=== PATIENT | female | born 1930 | race Caucasian/White ===

== ENCOUNTER → 2016-06-21 | Outpatient (CLI) | payer OTHER ==
[~2016-06-21] MED LIST: AZIT250T5 PO; CYAN10005 PO; ERGO500037 PO; FISH OI1 PO; FURO-85 PO; INSDGIPEN SC; LEVO-366 PO; LEVO125T4 PO; LSN/10125 PO; MAGN400T6 PO; METO25TA3 PO; NVLG SQ; NVLGI SC; ONDA4TAB10 SL; POTA10CA28 PO; POTA10TA32 PO; SERT50TA PO; SLWMEC PO; TRMCR130WC TOP; VNTHFA/IN INH
[2016-06-21 17:46] LABS: BLOOD UREA NITROGEN 34 mg/dl (7-18); BUN/CREATININE RATIO 24.3 (10-20); CALCIUM 9.4 mg/dl (8.5-10.1); CARBON DIOXIDE 24 mmol/L (21-32); CHLORIDE 104 mmol/L (98-107); GLUCOSE 145 mg/dl (70-99); POTASSIUM 4.2 mmol/L (3.5-5.1); SODIUM 140 mmol/L (136-145)
== END | disposition home or self-care (01) ==
LOC: C.LABPVFM 10:45
PROVIDERS: ATTEND Internal Medicine Nephrology
DX: E55.9 Vitamin D deficiency, unspecified (principal); N18.4 Chronic kidney disease, stage 4 (severe)

== ENCOUNTER 2016-07-24 19:07 | Emergency (ER) | payer OTHER ==
[~2016-07-24] VITALS: Ht 157.5 cm; Wt 105.3 kg
[~2016-07-24 19:07] MED LIST changes: -AZIT250T5 PO; -ERGO500037 PO; -FURO-85 PO; -LEVO-366 PO; -MAGN400T6 PO; -NVLG SQ; -ONDA4TAB10 SL; -POTA10CA28 PO; -SERT50TA PO; -SLWMEC PO; -TRMCR130WC TOP; -VNTHFA/IN INH
[2016-07-24 19:15] VITALS: TEMP 37.3; Ht 157.5 cm; Wt 105.3 kg
[2016-07-24] MEDS ORDERED: MAGN400T6 PO (19:40)
[2016-07-24] MEDS ORDERED: ALBUT/IPRATROP 3MG/0.5MG NEB 3 ML VIAL INH ONE (21:15)
[2016-07-24] MEDS ORDERED: NVLG SQ (21:17)
[2016-07-24] MEDS ORDERED: ERGO500037 PO (21:17)
[2016-07-24] MEDS ORDERED: SERT50TA PO (21:17)
[2016-07-24] MEDS ORDERED: FURO-85 PO (21:17)
[2016-07-24 21:26] LABS: BASO % 0.4 %; BASO ABS # 0.03 K/uL (0-0.2); COMPLETE YES; EOS % 0.6 %; HEMATOCRIT 43.1 % (37-47); IG% 0.3 %; LYMPH % 10.1 %; LYMPH ABS # 0.71 K/uL (1.2-3.4); MEAN CELL VOLUME 93.1 fL (80-100); MEAN CORPUSCULAR HEMOGLOBIN 30.9 pg (25-34); MEAN CORPUSCULAR HGB CONC 33.2 g/dl (32-36); MEAN PLATELET VOLUME 10.3 fL (7.4-10.4); MONO % 7.2 %; NEUT % 81.4 %; PLATELET COUNT 165 K/uL (130-400); RED BLOOD COUNT 4.63 M/uL (4.2-5.4); WHITE BLOOD COUNT 7.05 K/uL (4.8-10.8)
--- NOTE | 2016-07-24 21:30 | EMERGENCY ROOM VISIT NOTE ---
History Report prepared by Wilmer: Dee Mendez Under the Supervision of: Dr. Herminio Villasenor M.D. First contact with patient: 20:27 Chief Complaint: COUGH Stated Complaint: COUGH,HEADACHE Nursing Triage Summary: Pt complains of a cough. It started today. Denies any fever. History of Present Illness The patient is a 86 year old female who presents to the Emergency Room with complaints of an intermittent coughing beginning earlier today. She does not usually have a cough. She also reports rhinorrhea and sinus pain that she rates as a 1/10 in severity. The patient states "I have a chronic sinus condition and today it is worse." She also notes a loss of appetite. She did get the flu shot this year. She denies any fevers. Source of History: patient Onset: today Position: chest (coughing) Symptom Intensity: 1/10 Timing: intermittent Associated Symptoms: No fevers Note: Pt reports rhinorrhea and sinus pain, as well as loss of appetite. Review of Systems See HPI for pertinent positives & negatives. A total of 10 systems reviewed and were otherwise negative. Past Medical & Surgical Medical Problems: (1) Benign Hypertension (2) Cholelithiasis Nos (3) Hypertension Nos (4) Mixed Hyperlipidemia (5) Obesity, Nos Family History Diabetes mellitus FHx: musculoskeletal disease Heart disease Social History Smoking Status: Former Smoker Marital Status: Occupation Status: retired Current/Historical Medications Scheduled , 1,000 MG PO BID Azithromycin (Zithromax), 250 MG PO DAILY Cyanocobalamin (Vitamin B-12), 1,000 MCG PO DAILY Ergocalciferol (Vitamin D 46242 Unit), 50,000 UNIT PO WK Furosemide (Lasix), 20 MG PO Q2D Insulin Aspart (Novolog), UNITS SQ TIDM Insulin Glargine (Lantus Solostar), 20 UNIT SC BID Levothyroxine Sodium (Levothyroxine Sodium), 125 MCG PO DAILY Magnesium Oxide (Mag-Ox), 400 MG PO BID Metoprolol Succ (Toprol Xl) (Toprol-Xl), 25 MG PO DAILY Sertraline (Zoloft), 50 MG PO DAILY Allergies Coded Allergies: Aspirin (Verified Adverse Reaction, Mild, UPSET STOMACH, 07/10/09) No Known Allergies (Verified , 08/14/05) Physical Exam Vital Signs Date Time Temp Pulse Resp B/P Pulse Ox O2 Delivery O2 Flow Rate FiO2 07/24/16 22:37 92 159/99 93 Room Air 07/24/16 22:36 68 18 138/66 94 Room Air 07/24/16 22:10 87 07/24/16 21:48 92 Room Air 07/24/16 21:45 88 20 169/76 92 Room Air 91 179/68 98 184/84 07/24/16 19:15 37.3 95 20 141/73 96 Room Air Physical Exam GENERAL: Patient is a healthy-appearing well-nourished 86 year old female. HEAD: Normocephalic atraumatic EYES: Ocular movements intact pupils equal and react to light OROPHARYNX mucous membranes are moist no exudates present no erythema or edema present NECK: Supple no nuchal rigidity CHEST: Good equal expansion LUNGS: Clear and equal to auscultation CARDIAC: Normal S1 and S2 ABDOMEN: Soft nontender no guarding BACK: No CVA tenderness EXTREMITIES: No pain upon palpation normal muscle strength in all groups no clubbing cyanosis or edema NEURO: Patient is following commands is answering questions appropriately. Alert and oriented x3 Cranial Nerves 2-12 grossly intact Medical Decision & Procedures ER Provider Diagnostic Interpretation: Radiology results as stated below per my review and radiologist interpretation: CHEST ONE VIEW PORTABLE CLINICAL HISTORY: Pt c/o wheezing dyspnea COMPARISON STUDY: 10/26/2014 FINDINGS: Moderate cardiomegaly. Mild congestive failure. Small parenchymal infiltrate medial right base. IMPRESSION: Mild congestive failure. Small parenchymal infiltrate medial right base. Electronically signed by: Chago Benjamin M.D. 07/24/2016 9:30 PM Dictated Date/Time: 07/24/2016 9:30 PM Laboratory Results 07/24/16 21:15 Red Blood Count 4.63, Mean Corpuscular Volume 93.1, Mean Corpuscular Hemoglobin 30.9, Mean Corpuscular Hemoglobin Concent 33.2, Mean Platelet Volume 10.3, Neutrophils (%) (Auto) 81.4, Lymphocytes (%) (Auto) 10.1, Monocytes (%) (Auto) 7.2, Eosinophils (%) (Auto) 0.6, Basophils (%) (Auto) 0.4, Neutrophils # (Auto) 5.74, Lymphocytes # (Auto) 0.71, Monocytes # (Auto) 0.51, Eosinophils # (Auto) 0.04, Basophils # (Auto) 0.03 07/24/16 21:15 Test 07/24/16 21:15 07/24/16 21:33 White Blood Count 7.05 K/uL (4.8-10.8) Red Blood Count 4.63 M/uL (4.2-5.4) Hemoglobin 14.3 g/dL (12.0-16.0) Hematocrit 43.1 % (37-47) Mean Corpuscular Volume 93.1 fL (80-100) Mean Corpuscular Hemoglobin 30.9 pg (25-34) Mean Corpuscular Hemoglobin Concent 33.2 g/dl (32-36) Platelet Count 165 K/uL (130-400) Mean Platelet Volume 10.3 fL (7.4-10.4) Neutrophils (%) (Auto) 81.4 % Lymphocytes (%) (Auto) 10.1 % Monocytes (%) (Auto) 7.2 % Eosinophils (%) (Auto) 0.6 % Basophils (%) (Auto) 0.4 % Neutrophils # (Auto) 5.74 K/uL (1.4-6.5) Lymphocytes # (Auto) 0.71 K/uL (1.2-3.4) Monocytes # (Auto) 0.51 K/uL (0.11-0.59) Eosinophils # (Auto) 0.04 K/uL (0-0.5) Basophils # (Auto) 0.03 K/uL (0-0.2) RDW Standard Deviation 51.4 fL (36.4-46.3) RDW Coefficient of Variation 15.3 % (11.5-14.5) Immature Granulocyte % (Auto) 0.3 % Immature Granulocyte # (Auto) 0.02 K/uL (0.00-0.02) Anion Gap 10.0 mmol/L (3-11) Est Creatinine Clear Calc Drug Dose 31.8 ml/min Estimated GFR () 36.7 Estimated GFR (Non- 31.7 BUN/Creatinine Ratio 18.6 (10-20) Calcium Level 9.2 mg/dl (8.5-10.1) Total Bilirubin 0.5 mg/dl (0.2-1) Direct Bilirubin mg/dl (0-0.2) Aspartate Amino Transf (AST/SGOT) 15 U/L (15-37) Alanine Aminotransferase (ALT/SGPT) 16 U/L (12-78) Alkaline Phosphatase 177 U/L (45-117) Total Creatine Kinase 47 U/L (26-192) Creatine Kinase MB 0.6 ng/ml (0.5-3.6) Creatine Kinase MB Ratio 1.3 (0-3.0) Troponin I < 0.015 ng/ml (0-0.045) Total Protein 8.1 gm/dl (6.4-8.2) Albumin 3.4 gm/dl (3.4-5.0) Thyroid Stimulating Hormone (TSH) 0.379 uIu/ml (0.300-4.500) Chemistry Specimen Hemolysis Bedside Glucose 141 mg/dl (70-90) Labs reviewed by ED physician. Medications Administered Medications (Trade) Dose Ordered Sig/Jana Route Start Time Stop Time Status Last Admin Dose Admin Furosemide/Syringe (Lasix Inj/ Syringe) 2 ml @ 4 mls/min NOW STAT IV 07/24/16 21:55 07/24/16 21:57 DC 07/24/16 22:29 4 MLS/MIN Azithromycin (Zithromax Tab) 500 mg NOW STAT PO 07/24/16 21:56 07/24/16 21:57 DC 07/24/16 22:29 500 MG Albuterol (Ventolin Hfa Inhaler) 2 puffs NOW ONCE INH 07/24/16 22:30 07/24/16 22:31 DC 07/24/16 22:29 2 PUFFS ECG Indication: other (cough) Rate (beats per minute): 89 Rhythm: sinus rhythm Findings: 1st degree AV block, no acute ischemic change, no ectopy ED Course 2058: Past medical records reviewed. The patient was evaluated in room C3. A complete history and physical examination was performed. 2114: Duoneb 12 ml INH - pt refused 2155: Furosemide 20 mg IV 2155: Azithromycin 500 mg PO 3: I reassessed the patient at this time. She is feeling better and resting comfortably. I discussed the results and treatment plan with the patient. I answered all pertaining questions that she had. She expressed understanding and verbalized agreement. The patient will be discharged home. 2229: Albuterol 2 puffs INH Medical Decision Differential diagnosis: Etiologies such as infections, reactive airway disease, pneumonia, pneumothorax , COPD, CHF, cardiac ischemia, pulmonary embolism, musculoskeletal, gastrointestinal, as well as others were entertained. This is an 86-year-old female who presents emergency department complaining of shortness of breath. The patient does appear to have mild congestive heart failure on her x-ray therefore she was given 20 mg of Lasix in the emergency department. In addition the patient was also given an hour-long breathing treatment. She appears to have a small area of pneumonia on her chest x-ray therefore started on azithromycin. The patient is healthy in appearance and does not appear to be in any acute distress. Based on these findings I felt that the patient can be safely discharged home for follow-up with her primary care physician. Patient and family were in agreement with the treatment plan. Impression Primary Impression: Pneumonia Scribe Attestation The scribe's documentation has been prepared under my direction and personally reviewed by me in its entirety. I confirm that the note above accurately reflects all work, treatment, procedures, and medical decision making performed by me. Departure Information Dispostion Home / Self-Care Prescriptions Azithromycin (ZITHROMAX) 250 Mg Tab 250 MG PO DAILY, #4 TAB Prov: Herminio Villasenor MD 07/24/16 Referrals Shahab Cavazos M.D. (PCP) Forms HOME CARE DOCUMENTATION FORM, IMPORTANT VISIT INFORMATION Patient Instructions [facility], Pneumonia (Bacterial) - [facility], Pneumonia [place] Additional Instructions Use two puffs of inhaler twice every 6 hours You have been examined and treated today on an emergency basis only. This is not a substitute for, or an effort to provide, complete comprehensive medical care. It is impossible to recognize and treat all injuries or illnesses in a single emergency department visit. It is therefore important that you follow up closely with Dr cavazos. Call as soon as possible for an appointment. Thank you for your time and consideration. I look forward to speaking with you again soon. Please don't hesitate to call us if you have any questions. Problem Qualifiers Primary Impression: Pneumonia Pneumonia type: due to unspecified organism Laterality: unspecified laterality Lung location: unspecified part of lung Qualified Codes: J18.9 - Pneumonia, unspecified organism
[2016-07-24 21:48] VITALS: O2SAT 92
[2016-07-24 21:49] LABS: ALT/SGPT 16 U/L (12-78); BLOOD UREA NITROGEN 28 mg/dl (7-18); BUN/CREATININE RATIO 18.6 (10-20); CALCIUM 9.2 mg/dl (8.5-10.1); CARBON DIOXIDE 25 mmol/L (21-32); CHLORIDE 105 mmol/L (98-107); GLUCOSE 162 mg/dl (70-99); POTASSIUM 5.3 mmol/L (3.5-5.1); SODIUM 140 mmol/L (136-145)
[2016-07-24 21:52] LABS: ALKALINE PHOSPHATASE 177 U/L (45-117); AST/SGOT 15 U/L (15-37); CKMB/CK RATIO 1.3 (0-3.0); THYROID STIMULATING HORMONE 0.379 uIu/ml (0.300-4.500)
[2016-07-24] MEDS ORDERED: FUROSEMIDE INJ 20 MG in SYRINGE 0 ML IV STA (21:55)
[2016-07-24] MEDS ORDERED: AZITHROMYCIN 250 MG TAB PO STA (21:56)
[2016-07-24] MEDS ORDERED: AZIT250T5 PO (22:26)
[2016-07-24] MEDS ORDERED: ALBUTEROL HFA 8 GM INHALER INH ONE (22:30)
[2016-07-24 22:37] VITALS: BP 159/99; PULSE 92; O2SAT 93
== END 2016-07-24 22:44 | disposition home or self-care (01) ==
LOC: C.EDB 19:08 → C.EDC 22:44
DX: J18.9 Pneumonia, unspecified organism (principal); I10 Essential (primary) hypertension; E78.2 Mixed hyperlipidemia; Z79.4 Long term (current) use of insulin

== ENCOUNTER → 2016-07-28 | Outpatient (CLI) | payer OTHER ==
[~2016-07-28] MED LIST changes: +AZIT250T5 PO; +ERGO500037 PO; +FURO-85 PO; +LEVO-366 PO; -LSN/10125 PO; +MAGN400T6 PO; +NVLG SQ; -NVLGI SC; +ONDA4TAB10 SL; +POTA10CA28 PO; -POTA10TA32 PO; +SERT50TA PO; +SLWMEC PO; +TRMCR130WC TOP; +VNTHFA/IN INH
== END | disposition home or self-care (01) ==
LOC: C.LABPVFM 10:46
PROVIDERS: ATTEND Family Medicine
DX: N18.4 Chronic kidney disease, stage 4 (severe) (principal)

== ENCOUNTER → 2016-09-06 | Outpatient (CLI) | payer OTHER ==
[~2016-09-06] MED LIST changes: -AZIT250T5 PO; -LEVO125T4 PO; +LEVO125T5 PO
[2016-09-06 17:43] LABS: BLOOD UREA NITROGEN 41 mg/dl (7-18); BUN/CREATININE RATIO 27.3 (10-20); CALCIUM 9.5 mg/dl (8.5-10.1); CARBON DIOXIDE 28 mmol/L (21-32); CHLORIDE 105 mmol/L (98-107); GLUCOSE 133 mg/dl (70-99); PHOSPHORUS 2.9 mg/dl (2.5-4.9); POTASSIUM 4.7 mmol/L (3.5-5.1); SODIUM 140 mmol/L (136-145)
[2016-09-07 07:55] LABS: ESTIMATED AVERAGE GLUCOSE 154 mg/dl; HA1C FLAG Normal (Normal)
== END | disposition home or self-care (01) ==
LOC: C.LABPVFM 07:37
PROVIDERS: ATTEND Family Medicine
DX: E11.9 Type 2 diabetes mellitus without complications (principal); N25.81 Secondary hyperparathyroidism of renal origin

== ENCOUNTER → 2017-01-10 | Outpatient (CLI) | payer OTHER ==
[~2017-01-10] MED LIST changes: +LEVO125T4 PO; -LEVO125T5 PO
[2017-01-10 17:51] LABS: BLOOD UREA NITROGEN 30 mg/dl (7-18); BUN/CREATININE RATIO 23.1 (10-20); CARBON DIOXIDE 34 mmol/L (21-32); CHLORIDE 105 mmol/L (98-107); GLUCOSE 132 mg/dl (70-99); POTASSIUM 4.4 mmol/L (3.5-5.1); SODIUM 141 mmol/L (136-145)
[2017-01-11 07:53] LABS: ESTIMATED AVERAGE GLUCOSE 166 mg/dl; HA1C FLAG Normal (Normal)
== END | disposition home or self-care (01) ==
LOC: C.LABPVFM 15:23
PROVIDERS: ATTEND Family Medicine
DX: E11.9 Type 2 diabetes mellitus without complications (principal)

== ENCOUNTER 2017-01-14 15:31 | Emergency (ER) | payer OTHER ==
[~2017-01-14] VITALS: Ht 157.5 cm; Wt 105.9 kg
[~2017-01-14 15:31] MED LIST changes: -LEVO-366 PO; -ONDA4TAB10 SL; -POTA10CA28 PO; -SLWMEC PO; -TRMCR130WC TOP; -VNTHFA/IN INH
[2017-01-14 15:36] VITALS: TEMP 37.6; Ht 157.5 cm; Wt 105.9 kg
[2017-01-14] MEDS ORDERED: ONDANSETRON INJ 2 MG/ML 2 ML VIAL IV STA (15:47)
[2017-01-14] MEDS ORDERED: TRMCR130WC TOP (15:53)
[2017-01-14] MEDS ORDERED: SLWMEC PO (15:53)
[2017-01-14] MEDS ORDERED: POTA10CA28 PO (15:53)
[2017-01-14] MEDS ORDERED: VNTHFA/IN INH (15:53)
[2017-01-14] MEDS: SODIUM CHLORIDE 0.9% 500ML 500 ML IV SCH ×3 (16:00→18:00)
[2017-01-14] MEDS ORDERED: OPTIRAY 320 IV PRN (16:00)
[2017-01-14 16:06] LABS: BASO % 0.2 %; BASO ABS # 0.01 K/uL (0-0.2); COMPLETE YES; EOS % 0.3 %; HEMATOCRIT 43.3 % (37-47); IG% 0.3 %; LYMPH % 7.7 %; LYMPH ABS # 0.49 K/uL (1.2-3.4); MEAN CELL VOLUME 92.7 fL (80-100); MEAN CORPUSCULAR HEMOGLOBIN 30.6 pg (25-34); MEAN PLATELET VOLUME 10.2 fL (7.4-10.4); NEUT % 85.5 %; PLATELET COUNT 154 K/uL (130-400); RED BLOOD COUNT 4.67 M/uL (4.2-5.4); WHITE BLOOD COUNT 6.37 K/uL (4.8-10.8)
[2017-01-14 16:14] LABS: BUN/CREATININE RATIO 16.7 (10-20); CALCIUM 9.3 mg/dl (8.5-10.1); CREATININE 1.3 mg/dl (0.60-1.20); POTASSIUM 4.4 mmol/L (3.5-5.1)
[2017-01-14 16:25] LABS: VEN BLOOD GAS BASE EXCESS 3.1 mEq/L; VENOUS BLOOD GAS PCO2 50 mmHg (38.0-50.0); VENOUS BLOOD GAS PO2 27 mmHg
[2017-01-14 16:26] LABS: VEN BLD GAS O2 SATURATION < 60.0 %
[2017-01-14] MEDS ORDERED: SODIUM CHLORIDE 0.9% 500ML 500 ML IV STA (16:53)
[2017-01-14 17:09] LABS: URINE APPEARANCE TURBID (CLEAR); URINE BILIRUBIN NEG (NEG); URINE COLOR YELLOW; URINE EPITHELIAL CELL AUTO >30 /lpf (0-5); URINE NITRITE POS (NEG); URINE SPECIFIC GRAVITY 1.015 (1.000-1.030); UROBILINOGEN NEG (NEG); ZZUR CULT IF INDIC CLEAN CATCH YES
[2017-01-14 17:10] LABS: MANUAL MICROSCOPIC REQUIRED? NO; REVIEW REQ? YES
[2017-01-14] MEDS ORDERED: CEFTRIAXONE SOD INJ 1 GM ADDVIAL IV STA (17:50)
--- NOTE | 2017-01-14 17:53 | DIAGNOSTIC IMAGING REPORT ---
CT OF THE ABDOMEN AND PELVIS WITH CONTRAST CLINICAL HISTORY: Abdominal pain, nausea, vomiting and diarrhea. COMPARISON STUDY: Renal ultrasound August 14, 2014 and right upper quadrant ultrasound January 07, 2009. TECHNIQUE: Following IV administration of 116 mL of Optiray-320, axial images of the abdomen and pelvis were obtained from the lung bases to the proximal femurs. Images were reviewed in the axial, sagittal, and coronal planes. IV contrast was administered without complication. A dose lowering technique was utilized adhering to the principles of ALARA. CT DOSE: 1498.55 mGy.cm FINDINGS: Visualized portions of the lower chest demonstrate moderate cardiomegaly. Note is made of a partially visualized 3 x 2.6 cm mass-like round abnormality within the right middle lobe. There is enlargement of the lateral segment of the liver with fissural widening and slight nodularity of the liver surface. This suggests cirrhosis. No hepatic lesions are identified although sensitivity for detection of hypervascular lesions is diminished on this portal venous phase study. The spleen is mildly enlarged. Left adrenal nodularity is probably benign. The right adrenal gland and pancreas are unremarkable. There is moderate renal cortical thinning. A 5.4 cm water attenuation lesion arising from the lower pole of the left kidney has peripheral calcification. This likely reflects a mildly complicated cyst. There is an additional left renal cyst. There is mild left hydroureteronephrosis with urothelial thickening. There is moderate wall thickening of the bladder with moderate adjacent infiltration. There is no renal abscess. A diverticulum of the second portion of the duodenum is noted. There is no biliary or pancreatic ductal dilatation status post cholecystectomy. There is no lymphadenopathy within the abdomen or the pelvis. There is sigmoid diverticulosis without evidence for acute diverticulitis. No suspicious osseous lesions are present. Cortical thickening and trabecular coarsening within the proximal right femur may reflect Paget's of the bone. IMPRESSION: 1. Findings suggestive of cystitis with mild left hydroureteronephrosis. Left pelvicalyceal wall thickening may reflect associated pyelitis. 2. Partially visualized 3 x 2.6 cm mass-like abnormality within the right middle lobe. This may reflect a primary lung malignancy although is partially imaged on this exam and atypical appearance of pneumonia or atelectasis could appear similar. A follow-up nonemergent chest CT is recommended. Findings discussed with Dr. Medrano at time of dictation. 3. Suspected cirrhosis with mild splenomegaly. Electronically signed by: Sanjay Carr M.D. 01/14/2017 5:52 PM Dictated Date/Time: 01/14/2017 5:36 PM
[2017-01-14] MEDS ORDERED: LEVO-366 PO (18:08)
[2017-01-14] MEDS ORDERED: ONDA4TAB10 SL (18:08)
--- NOTE | 2017-01-14 18:08 | EMERGENCY ROOM VISIT NOTE ---
History Report prepared by Wilmer: Ghislaine Deluca Under the Supervision of: Dr. Palomo Medrano M.D. First contact with patient: 15:34 Stated Complaint: ILLNESS, VOMITED, DIARRHEA, WEAK History of Present Illness The patient is an 86 year old white female with a past medical history of lymphedema, diabetes, cholecystectomy, appendectomy who presents to the ED with a cc of intermittent vomiting beginning 0800 this morning. Positive diarrhea. Negative abdominal pain, hematemesis, hematochezia, cough, fever. Pt reports urinary frequency attributed to Lasix. Pt denies recent travel, antibiotics, camping, stream or well water. Pt denies changes to insulin dosing. Denies alcohol, tobacco, drug use. Source of History: patient Onset: 0800 this morning Position: other (global) Quality: other (vomiting) Timing: intermittent Associated Symptoms: + diarrhea, No fevers, No cough, No abdominal pain, No hematochezia Note: Pt denies hematemesis. Review of Systems See HPI for pertinent positives and negatives. A total of ten systems were reviewed and were otherwise negative. Past Medical & Surgical Medical Problems: (1) Benign Hypertension (2) Cholelithiasis Nos (3) Hypertension Nos (4) Mixed Hyperlipidemia (5) Obesity, Nos Family History Diabetes mellitus FHx: musculoskeletal disease Heart disease Social History Smoking Status: Former Smoker Marital Status: Occupation Status: retired Current/Historical Medications Scheduled , 1,000 MG PO BID Cyanocobalamin (Vitamin B-12), 1,000 MCG PO DAILY Ergocalciferol (Vitamin D 94280 Unit), 50,000 UNIT PO WK Furosemide (Lasix), 20 MG PO QAM Insulin Aspart (Novolog), UNITS SQ TIDM Insulin Glargine (Lantus Solostar), 20 UNIT SC BID Levofloxacin (Levaquin), 750 MG PO DAILY Levothyroxine Sodium (Levothyroxine Sodium), 125 MCG PO DAILY Magnesium Chloride (Slow-Mag Tab), 64 MG PO DAILY Metoprolol Succ (Toprol Xl) (Toprol-Xl), 25 MG PO DAILY Ondasetron Odt (Zofran Odt), 4 MG SL Q6H Potassium Chloride (Micro-K Ext Rel), 10 MEQ PO DAILY Sertraline (Zoloft), 50 MG PO DAILY Scheduled PRN Albuterol Hfa (Ventolin Hfa), 2 PUFFS INH Q6H PRN for Shortness of Breath Triamcinolone Acet (Aristocort 0.1%), 1 APPLN TOP BID PRN for ITCHY RASH Allergies Coded Allergies: Aspirin (Verified Adverse Reaction, Mild, UPSET STOMACH, 07/10/09) No Known Allergies (Verified , 08/14/05) Physical Exam Vital Signs Date Time Temp Pulse Resp B/P (MAP) Pulse Ox O2 Delivery O2 Flow Rate FiO2 01/14/17 19:26 82 18 174/75 92 01/14/17 17:58 92 20 174/65 95 Room Air 01/14/17 16:32 82 18 144/80 94 Room Air 01/14/17 16:03 83 01/14/17 15:36 37.6 85 23 177/85 92 Room Air Physical Exam GENERAL: Awake, alert, well-appearing, NAD HENT: Normocephalic, atraumatic. EYES: Normal conjunctiva. Sclera non-icteric. NECK: Supple. No nuchal rigidity. FROM. RESPIRATORY: CTAB, no rhonchi, wheezing, crackles CARDIAC: RRR, no MRG ABDOMEN: Large abdomen, small umbilical hernia reducible, small aging ecchymosis over left abdomen consistent with insulin injection, mild TTP to epigastrium. MSK: No chest wall TTP, mild LE edema, non pitting. NEURO: GCS 15, CN 2-12 intact, moves all 4s on command SKIN: No rash or jaundice noted. Medical Decision & Procedures ER Provider Diagnostic Interpretation: Radiology results as stated below per my review and radiologist interpretation: CT OF THE ABDOMEN AND PELVIS WITH CONTRAST CLINICAL HISTORY: Abdominal pain, nausea, vomiting and diarrhea. COMPARISON STUDY: Renal ultrasound August 14, 2014 and right upper quadrant ultrasound January 07, 2009. TECHNIQUE: Following IV administration of 116 mL of Optiray-320, axial images of the abdomen and pelvis were obtained from the lung bases to the proximal femurs. Images were reviewed in the axial, sagittal, and coronal planes. IV contrast was administered without complication. A dose lowering technique was utilized adhering to the principles of ALARA. CT DOSE: 1498.55 mGy.cm FINDINGS: Visualized portions of the lower chest demonstrate moderate cardiomegaly. Note is made of a partially visualized 3 x 2.6 cm mass-like round abnormality within the right middle lobe. There is enlargement of the lateral segment of the liver with fissural widening and slight nodularity of the liver surface. This suggests cirrhosis. No hepatic lesions are identified although sensitivity for detection of hypervascular lesions is diminished on this portal venous phase study. The spleen is mildly enlarged. Left adrenal nodularity is probably benign. The right adrenal gland and pancreas are unremarkable. There is moderate renal cortical thinning. A 5.4 cm water attenuation lesion arising from the lower pole of the left kidney has peripheral calcification. This likely reflects a mildly complicated cyst. There is an additional left renal cyst. There is mild left hydroureteronephrosis with urothelial thickening. There is moderate wall thickening of the bladder with moderate adjacent infiltration. There is no renal abscess. A diverticulum of the second portion of the duodenum is noted. There is no biliary or pancreatic ductal dilatation status post cholecystectomy. There is no lymphadenopathy within the abdomen or the pelvis. There is sigmoid diverticulosis without evidence for acute diverticulitis. No suspicious osseous lesions are present. Cortical thickening and trabecular coarsening within the proximal right femur may reflect Paget's of the bone. IMPRESSION: 1. Findings suggestive of cystitis with mild left hydroureteronephrosis. Left pelvicalyceal wall thickening may reflect associated pyelitis. 2. Partially visualized 3 x 2.6 cm mass-like abnormality within the right middle lobe. This may reflect a primary lung malignancy although is partially imaged on this exam and atypical appearance of pneumonia or atelectasis could appear similar. A follow-up nonemergent chest CT is recommended. Findings discussed with Dr. Medrano at time of dictation. 3. Suspected cirrhosis with mild splenomegaly. Electronically signed by: Sanjay Carr M.D. 01/14/2017 5:52 PM Dictated Date/Time: 01/14/2017 5:36 PM Laboratory Results 01/14/17 15:35 Red Blood Count 4.67, Mean Corpuscular Volume 92.7, Mean Corpuscular Hemoglobin 30.6, Mean Corpuscular Hemoglobin Concent 33.0, Mean Platelet Volume 10.2, Neutrophils (%) (Auto) 85.5, Lymphocytes (%) (Auto) 7.7, Monocytes (%) (Auto) 6.0, Eosinophils (%) (Auto) 0.3, Basophils (%) (Auto) 0.2, Neutrophils # (Auto) 5.45, Lymphocytes # (Auto) 0.49, Monocytes # (Auto) 0.38, Eosinophils # (Auto) 0.02, Basophils # (Auto) 0.01 01/14/17 15:35 Test 01/14/17 15:35 01/14/17 15:55 01/14/17 16:15 01/14/17 16:25 White Blood Count 6.37 K/uL (4.8-10.8) Red Blood Count 4.67 M/uL (4.2-5.4) Hemoglobin 14.3 g/dL (12.0-16.0) Hematocrit 43.3 % (37-47) Mean Corpuscular Volume 92.7 fL (80-100) Mean Corpuscular Hemoglobin 30.6 pg (25-34) Mean Corpuscular Hemoglobin Concent 33.0 g/dl (32-36) Platelet Count 154 K/uL (130-400) Mean Platelet Volume 10.2 fL (7.4-10.4) Neutrophils (%) (Auto) 85.5 % Lymphocytes (%) (Auto) 7.7 % Monocytes (%) (Auto) 6.0 % Eosinophils (%) (Auto) 0.3 % Basophils (%) (Auto) 0.2 % Neutrophils # (Auto) 5.45 K/uL (1.4-6.5) Lymphocytes # (Auto) 0.49 K/uL (1.2-3.4) Monocytes # (Auto) 0.38 K/uL (0.11-0.59) Eosinophils # (Auto) 0.02 K/uL (0-0.5) Basophils # (Auto) 0.01 K/uL (0-0.2) RDW Standard Deviation 49.4 fL (36.4-46.3) RDW Coefficient of Variation 14.7 % (11.5-14.5) Immature Granulocyte % (Auto) 0.3 % Immature Granulocyte # (Auto) 0.02 K/uL (0.00-0.02) Anion Gap 5.0 mmol/L (3-11) Est Creatinine Clear Calc Drug Dose 36.8 ml/min Estimated GFR () 43.6 Estimated GFR (Non- 37.6 BUN/Creatinine Ratio 16.7 (10-20) Calcium Level 9.3 mg/dl (8.5-10.1) Total Bilirubin 0.8 mg/dl (0.2-1) Direct Bilirubin 0.2 mg/dl (0-0.2) Aspartate Amino Transf (AST/SGOT) 13 U/L (15-37) Alanine Aminotransferase (ALT/SGPT) 20 U/L (12-78) Alkaline Phosphatase 177 U/L (45-117) Total Protein 7.7 gm/dl (6.4-8.2) Albumin 3.1 gm/dl (3.4-5.0) Lipase 97 U/L (73-393) Urine Color YELLOW Urine Appearance TURBID (CLEAR) Urine pH 5.0 (4.5-7.5) Urine Specific Bliss 1.015 (1.000-1.030) Urine Protein 1+ (NEG) Urine Glucose (UA) NEG (NEG) Urine Ketones NEG (NEG) Urine Occult Blood 3+ (NEG) Urine Nitrite POS (NEG) Urine Bilirubin NEG (NEG) Urine Urobilinogen NEG (NEG) Urine Leukocyte Esterase LARGE (NEG) Urine WBC (Auto) >30 /hpf (0-5) Urine RBC (Auto) >30 /hpf (0-4) Urine Hyaline Casts (Auto) 1-5 /lpf (0-5) Urine Epithelial Cells (Auto) >30 /lpf (0-5) Urine Bacteria (Auto) 4+ (NEG) Urine Pathogenic Casts /lpf (0) Venous Blood pH 7.39 (7.36-7.41) Venous Blood Partial Pressure CO2 50 mmHg (38.0-50.0) Venous Blood Partial Pressure O2 27 mmHg Venous Blood HCO3 29 mmol/L Venous Blood Oxygen Saturation < 60.0 % Venous Blood Base Excess 3.1 mEq/L Bedside Troponin I < 0.030 ng/ml (0-0.045) Test 01/14/17 19:15 Bedside Lactic Acid Venous 1.75 mmol/L (0.90-1.70) Laboratory results reviewed by me Medications Administered Medications (Trade) Dose Ordered Sig/Jana Route Start Time Stop Time Status Last Admin Dose Admin Sodium Chloride 500 ml @ 500 mls/hr Q1H IV 01/14/17 16:00 01/14/17 21:41 DC 01/14/17 16:00 500 MLS/HR Ondansetron HCl (Zofran Inj) 4 mg NOW STAT IV 01/14/17 15:47 01/14/17 15:50 DC 01/14/17 16:24 4 MG Sodium Chloride 500 ml @ 999 mls/hr Q31M STAT IV 01/14/17 16:53 01/14/17 17:23 DC 01/14/17 16:53 999 MLS/HR Ceftriaxone Sodium (Rocephin Inj) 1 gm NOW STAT IV 01/14/17 17:50 01/14/17 17:51 DC 01/14/17 18:02 1 GM ECG Indication: weakness Rate (beats per minute): 78 Rhythm: normal sinus Findings: 1st degree AV block, other (prolonged SD, normal QRS QTc, T wave flattening lead 2, questionable elevation lead 3 but not in continguous leads, abnormal) ED Course 153: The patient was evaluated in room A11B. A complete history and physical exam was performed. 1747: Dr. Carr called to discuss the results of the CT. He recommends outpatient chest CT. 1753: I reevaluated the patient. Her pain has improved. She has no nausea or recurrent vomiting and is tolerating PO. I discussed results and discharge instructions: She verbalized understanding and agreement. The patient is ready for discharge. Medical Decision The patient is an 86 year old white female with a past medical history of lymphedema, diabetes, cholecystectomy, appendectomy who presents to the ED with a cc of intermittent vomiting beginning 0800 this morning. Triage Nursing notes reviewed. The patient's presentation and history were concerning for PUD, gastroenteritis , gastritis, allergy, pancreatitis, hepatitis, UTI. Patient was evaluated to the bedside and a workup was begun. Patient had no episodes of nausea or vomiting here in the department. Patient did have blood work with a normal white count. Patient's lactate was mildly elevated but less than 3. Patient did receive 2 separate [address] was concerning for likely cystitis mild hydro was noted; however, patient's kidney function was at baseline with a creatinine of 1.3 and had UOP while in EC. Patient was feeling much improved after medical management and supportive care. Patient was able to tolerate by mouth. Patient's UA concerning for infection and consistent with the CT. Patient was given Rocephin. Patient was evaluated as well for atypical chest pain. Patient had a negative troponin. EKG did show questionable elevation in a single lead but was not contiguous patient did complain of any chest pain or shortness of breath. Upon reassessment patient still did not have any of the symptoms. Patient tolerated by mouth. Patient had a repeat lactate which was < 2 and downtrending. Patient was given strict follow-up discharge, return cautious. We also discussed that the patient had a concern for a right lower lobe mass that should be followed up with outpatient nonemergent chest CT. Patient understood. These findings were also related to her granddaughter John. Patient agreed with the plan of care was 60 discharged home. Medication Reconcilliation Current Medication List: was personally reviewed by me Blood Pressure Screening Patient's blood pressure: Elevated blood pressure Blood pressure disposition: Referred to PCP Impression Primary Impression: Abdominal pain Additional Impressions: Nausea & vomiting Cystitis Scribe Attestation The scribe's documentation has been prepared under my direction and personally reviewed by me in its entirety. I confirm that the note above accurately reflects all work, treatment, procedures, and medical decision making performed by me. Departure Information Dispostion Home / Self-Care Prescriptions Ondasetron Odt (ZOFRAN ODT) 4 Mg Tab 4 MG SL Q6H for Nausea, #6 TAB Prov: Palomo Medrano M.D. 01/14/17 Levofloxacin (Levaquin) 500 Mg Tab 750 MG PO DAILY for 5 Days, #8 TAB Prov: Palomo Medrano M.D. 01/14/17 Referrals Shahab Cavazos M.D. (PCP) Patient Instructions ED Nausea Vomiting, ED UTI Cystitis Female, My [facility] Additional Instructions Please return to the emergency department if you have worsening or recurrent symptoms not amenable to at-home treatment. Please call for a follow-up appointment with her primary care physician. Please take your medications as prescribed. If you have other concerns and/or complaints please feel free to also call your primary care physician's office or return the ED for further evaluation, management, and treatment. Problem Qualifiers Primary Impression: Abdominal pain Abdominal location: lower abdomen, unspecified Qualified Codes: R10.30 - Lower abdominal pain, unspecified Additional Impressions: Nausea & vomiting Vomiting type: unspecified Vomiting Intractability: non-intractable Qualified Codes: R11.2 - Nausea with vomiting, unspecified
[2017-01-14 19:26] VITALS: BP 174/75; PULSE 82; O2SAT 92
[2017-01-14] MEDS ORDERED: LEVOFLOXACIN 250 MG TAB PO STA (19:26)
[2017-01-14] MEDS ORDERED: ONDANSETRON HOME PACK 4MG OD TAB PO ONE (19:30)
--- NOTE | 2017-01-16 15:23 | Pharmacy Progress Note ---
ED Pharmacist Culture FollowUp Date of Service: Jan 16, 2017. Patient was sent home with a prescription for Levofloxacin 750mg PO daily x 5 days, which should cover the e coli growing from the patient's URINE culture.
[2017-03-09] MEDS ORDERED: MAGN400T6 PO (10:31)
== END 2017-01-14 19:25 | disposition home or self-care (01) ==
LOC: EDBD 15:31 → C.EDA 15:34
DX: R10.30 Lower abdominal pain, unspecified (principal); R11.2 Nausea with vomiting, unspecified; N30.90 Cystitis, unspecified without hematuria; I10 Essential (primary) hypertension; E78.2 Mixed hyperlipidemia; E66.9 Obesity, unspecified; Z83.3 Family history of diabetes mellitus; Z82.49 Family history of ischemic heart disease and other diseases of the circulatory system; Z87.891 Personal history of nicotine dependence; Z79.4 Long term (current) use of insulin

== ENCOUNTER → 2017-02-21 | Outpatient (CLI) | payer OTHER ==
[~2017-02-21] MED LIST changes: +ONDA4TAB10 SL; +POTA10CA28 PO; +SLWMEC PO; +TRMCR130WC TOP; +VNTHFA/IN INH
--- NOTE | 2017-02-21 11:50 | DIAGNOSTIC IMAGING REPORT ---
(CHEST) THORAX WITHOUT CLINICAL HISTORY: 86 years-old Female presenting with lung mass. TECHNIQUE: Multidetector CT imaging of the chest was performed without the use of intravenous contrast. IV contrast: None. A dose lowering technique was used consistent with the principles of ALARA (as low as reasonably achievable). COMPARISON: CT of the abdomen and pelvis from 01/14/2017. CT DOSE (mGy.cm): The estimated cumulative dose is 441.94 mGy.cm. FINDINGS: Blueprint Reproducer topogram: Unremarkable. On soft tissue windows, normal thyroid and thoracic inlet. Few subcentimeter mediastinal lymph nodes noted in the precarinal region, the largest measuring 5 mm in short axis. Evaluation for hilar lymphadenopathy limited without intravenous contrast. Atherosclerosis of aortic arch. Mildly enlarged heart. Coronary artery and aortic valve calcification. No pericardial or pleural effusion. Relative hypertrophy of the left hepatic lobe with nodular contour of the liver suggesting cirrhosis. On lung windows, previously noted right middle lobe mass now measures 3.1 x 2.9 cm, previously 3.0 x 2.6 cm. This abuts the anterior mediastinum without nay evidence of invasion. No extension to the right hilum. Triangular solid 4 mm fissural nodule in the posterior segment of the right upper lobe (series 4 image 75). Solid round 8 mm nodule in the right lower lobe (series 4 image 123). No left sided nodule. Airways patent. On bone windows, mild degenerative changes of the thoracic spine. Old rib fractures on the right. IMPRESSION: 1. Right middle lobe mass measuring 3.1 x 2.9 cm which abuts but does not invade the anterior mediastinum. No extension to the right hilum. Two solid pulmonary nodules in the right lung, one fissural nodule in the right upper lobe, which is less suspicious by morphology, and a second more suspicious larger nodule in the right lower lobe. This raises concern for metastatic spread in the right lower lobe. Allowing for the lack of intravenous contrast, no evidence of hilar lymphadenopathy. 2. Cirrhosis. Electronically signed by: Shahab Varma M.D. 02/21/2017 11:48 AM Dictated Date/Time: 02/21/2017 11:40 AM
== END | disposition home or self-care (01) ==
LOC: C.CTS 10:46
PROVIDERS: ATTEND Family Medicine
DX: R91.8 Other nonspecific abnormal finding of lung field (principal); K74.60 Unspecified cirrhosis of liver

== ENCOUNTER → 2017-03-13 | Outpatient (CLI) | payer OTHER ==
[~2017-03-13] MED LIST changes: -ONDA4TAB10 SL; -POTA10CA28 PO; -SLWMEC PO
--- NOTE | 2017-03-13 11:58 | DIAGNOSTIC IMAGING REPORT ---
PET/CT SKULL-THIGH CLINICAL HISTORY: Pulmonary mass COMPARISON STUDY: Chest CT scan dated 02/21/2017 FINDINGS: The patient was injected with 12.7 mCi of F 18 labeled FDG. On the standard induction phase, PET/CT scanning is performed from the skull base to the upper thigh region. Within the neck, there is a left-sided oropharyngeal mass at the tonsillar level which is intensely FDG avid demonstrating SUV maximum of 14. This should be presumed to represent a carcinoma or lymphoma and biopsy is recommended. There is a 33 mm right middle lobe pulmonary mass, with SUV maximum of 7.7. There is a 7 mm right lower lobe pulmonary nodule which is not FDG avid. There is no FDG avid mediastinal hilar or axillary lymphadenopathy. Evaluation the lung parenchyma is limited due to respiratory motion artifact. Within the upper abdomen, there is no pathologic hepatic or splenic activity. The spleen is mildly enlarged measuring 13.5 cm. There is moderate nodular left adrenal gland thickening. There is minimal right adrenal gland thickening. There is minimal left adrenal gland activity with SUV maximum of 2.0. There is physiologic urinary tract and bowel activity. There is no pathologic alli activity within the abdomen and pelvis. Incidental note is made of a fat-containing umbilical hernia. There is colonic diverticulosis. There is a rim calcified 5.6 cm left renal cyst. There is infiltration the subcutaneous tissues within both anterior abdominal haynes, likely secondary to injection sites. This is minimally FDG avid. There is mild bladder wall thickening and minimal perivesical stranding. 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 IMPRESSION: 1. FDG avid 33 mm right middle lobe pulmonary mass, suspicious for neoplasm. 2. No evidence of pathologic alli activity 3. Intensely FDG avid left-sided peritonsillar mass, viewed as highly suspicious for neoplasm. Direct visualization and biopsy is recommended 4. Nodular thickening of the left adrenal gland, likely represent a nodular hyperplasia 5. Mild splenomegaly Electronically signed by: Blake Jonas M.D. 03/13/2017 11:57 AM Dictated Date/Time: 03/13/2017 11:42 AM
== END | disposition home or self-care (01) ==
LOC: C.PET 08:05
PROVIDERS: ATTEND Surgery
DX: R91.1 Solitary pulmonary nodule (principal); J36 Peritonsillar abscess; E27.8 Other specified disorders of adrenal gland

== ENCOUNTER → 2017-03-13 | Outpatient (CLI) | payer OTHER ==
[2017-03-13 12:21] LABS: BASO % 0.5 %; BASO ABS # 0.04 K/uL (0-0.2); COMPLETE YES; EOS % 1.3 %; IG% 0.4 %; LYMPH % 21.1 %; LYMPH ABS # 1.81 K/uL (1.2-3.4); MEAN CORPUSCULAR HEMOGLOBIN 30.6 pg (25-34); MEAN CORPUSCULAR HGB CONC 32.9 g/dl (32-36); MEAN PLATELET VOLUME 10.8 fL (7.4-10.4); MONO % 5.4 %; NEUT % 71.3 %; PLATELET COUNT 217 K/uL (130-400); RED BLOOD COUNT 4.84 M/uL (4.2-5.4); WHITE BLOOD COUNT 8.57 K/uL (4.8-10.8)
[2017-03-13 12:48] LABS: BLOOD UREA NITROGEN 30 mg/dl (7-18); BUN/CREATININE RATIO 21.1 (10-20); CALCIUM 9.5 mg/dl (8.5-10.1); CARBON DIOXIDE 30 mmol/L (21-32); CHLORIDE 102 mmol/L (98-107); GLUCOSE 193 mg/dl (70-99); POTASSIUM 4.4 mmol/L (3.5-5.1); SODIUM 138 mmol/L (136-145)
== END | disposition home or self-care (01) ==
LOC: C.LAB 10:29
PROVIDERS: ATTEND Surgery
DX: Z01.812 Encounter for preprocedural laboratory examination (principal); R91.1 Solitary pulmonary nodule

== ENCOUNTER 2017-03-15 05:05 | Day surgery (SDC) | payer OTHER ==
[2017-03-09 10:34] VITALS: BMI 43.0
[~2017-03-15] VITALS: Ht 154.9 cm; Wt 104.1 kg
[2017-03-15] MEDS ORDERED: LACTATED RINGER'S 1000ML 1,000 ML IV SCH (06:00)
[2017-03-15 06:02] VITALS: BP_SYST 158; BP_SYST 221; BP_DIAS 83; BP_DIAS 87; PULSE 80; TEMP 37; O2SAT 92; Ht 154.9 cm; Wt 104.1 kg
[2017-03-15] MEDS ORDERED: ONDANSETRON INJ 2 MG/ML 2 ML VIAL ONE (06:51)
[2017-03-15] MEDS ORDERED: PROPOFOL IV EMULSION 10 MG/ML 20 ML VIAL IV ONE ×2 (06:51→09:07)
[2017-03-15] MEDS ORDERED: LIDOCAINE HCL 2% 2 ML VIAL (20MG/ML) ONE (06:51)
[2017-03-15] MEDS ORDERED: FENTANYL CITRATE INJ 50 MCG/1 ML 2 ML VIAL ONE (06:51)
[2017-03-15] MEDS ORDERED: GLYCOPYRROLATE INJ 0.2 MG/ML VIAL ONE ×2 (06:51→09:46)
[2017-03-15] MEDS ORDERED: MIDAZOLAM HCL 1 MG/ML 2ML VIAL ONE (06:51)
[2017-03-15] MEDS ORDERED: DEXAMETHASONE SOD INJ 4 MG/ML VIAL ONE (06:51)
[2017-03-15] MEDS ORDERED: NEOSTIGMINE METHYLSULFATE 5 MG/5 ML SYR ONE (06:51)
--- NOTE | 2017-03-15 07:03 | History & Physical Bridge Note ---
H&P Re-Evaluation Bridge Note: I have examined the patient, reviewed the History & Physical and in the interval since the performance of the History & Physical I have noted the following changes of clinical significance: No changes noted
--- NOTE | 2017-03-15 07:27 | Discharge Instructions ---
Discharge Instructions Date of Service Mar 15, 2017. Visit Reason for Visit: Lung Mass, Iddm Discharge Discharge Diagnosis / Problem: Lung Mass Discharge Goals Goal(s): Learn about illness Activity Recommendations Activity Limitations: resume your previous activity (in 24 hours) Anesthesia . Post Anesthesia Instructions: If you have had General Anesthesia or IV Sedation: * Do not drive today. * Resume driving when surgeon permits. * Do not make important decisions or sign legal documents today. * Call surgeon for: 1. Temperature elevations greater than 101 degrees F. 2. Uncontrollable pain. 3. Excessive bleeding. 4. Persistent nausea and vomiting. 5. Medication intolerance (nausea, vomiting or rash). * For nausea and vomiting use only clear liquids such as: tea, soda, bouillon until nausea subsides, then gradually increase diet as tolerated. * If you have any concerns or questions, call your surgeon's office. If physician is unavailable and it is an emergency, call 911 or go to the nearest emergency room. . Instructions / Follow-Up Instructions / Follow-Up 1. You may cough up some blood. call physician if excessive amount noted. 2. keep your scheduled appointment with Dr. Brown on March 27, 2017 @ 11: 00 am. Diet Recommendations Recommended Home Diet: resume previous diet Pending Studies Studies pending at discharge: no Medical Emergencies . Who to Call and When: Medical Emergencies: If at any time you feel your situation is an emergency, please call 911 immediately. . Non-Emergent Contact Non-Emergency issues call your: Surgeon Call Non-Emergent contact if: you have a fever, your pain is not controlled . . "Provider Documentation" section prepared by Efraín Rose. .
[2017-03-15] MEDS ORDERED: EpHEDrine SULFATE INJ 50 MG/ML AMP IV PRN (08:00)
[2017-03-15] MEDS ORDERED: FENTANYL CITRATE INJ 50 MCG/1 ML 2 ML VIAL IV PRN (08:00)
[2017-03-15] MEDS ORDERED: ATROPINE SULFATE 0.1 MG/ML 5ML SYR IV PRN (08:00)
[2017-03-15] MEDS ORDERED: ROCURONIUM BROMIDE 10 MG/ML 5 ML VIAL IV ONE (09:06)
[2017-03-15] MEDS ORDERED: EpHEDrine SULFATE 50MG/5ML SYR ONE (09:07)
--- NOTE | 2017-03-15 09:36 | DIAGNOSTIC IMAGING REPORT ---
CHEST 1 VIEW FRONTAL CLINICAL HISTORY: NAVIGATIONAL BRONCHOSCOPY COMPARISON STUDY: Chest CT 02/21/2017. FINDINGS: A single fluoroscopic spot image of the right lung base was submitted. A bronchoscopy was performed within the right middle lobe. Total fluoroscopy time was 536 seconds. IMPRESSION: Fluoroscopy provided for a bronchoscopy of the right middle lobe. Electronically signed by: Deep Obando M.D. 03/15/2017 9:34 AM Dictated Date/Time: 03/15/2017 9:33 AM
[2017-03-15] MEDS ORDERED: NEOSTIGMINE METHYLSULFATE 1 MG/ML 10ML VIAL ONE (09:46)
[2017-03-15] MEDS ORDERED: LABETALOL HCL IV 5 MG/ML 20ML IV ONE (09:52)
--- NOTE | 2017-03-15 10:26 | DIAGNOSTIC IMAGING REPORT ---
CHEST ONE VIEW PORTABLE CLINICAL HISTORY: 86 years-old Female presenting with s/p bronchoscopy . TECHNIQUE: Portable upright AP view of the chest was obtained. COMPARISON: 07/24/[address] from 02/21/2017. FINDINGS: Cardiac silhouette remains enlarged. Prominence of pulmonary vasculature, increased from prior. Multiple pulmonary nodules evident, better demonstrated on recent chest CT from 02/21/2017. Vague perihilar opacity in the right lung. No large effusion or pneumothorax. Osseous structures normal. Upper abdomen normal. IMPRESSION: 1. Vague perihilar opacity in the right lung could relate to atelectasis or due to the presence of multiple pulmonary nodules. Nodules better demonstrated on recent CT. 2. No pneumothorax. 3. Cardiomegaly. Electronically signed by: Shahab Varma M.D. 03/15/2017 10:24 AM Dictated Date/Time: 03/15/2017 10:19 AM
[2017-03-15] MEDS ORDERED: NovoLIN-R INSULIN PER UNIT CHARGE ONE (10:31)
[2017-03-15] MEDS ORDERED: NURSING VERBAL MED ORDER ONE (10:34)
--- NOTE | 2017-03-15 11:28 | OPERATIVE REPORT ---
DATE OF OPERATION: 03/15/2017 PREOPERATIVE DIAGNOSES: 1. Right upper lobe mass. 2. Right lower lobe mass. POSTOPERATIVE DIAGNOSES: Same. PROCEDURES: 1. Endobronchial ultrasound with biopsy. 2. Navigational bronchoscopy with brushings, needle biopsies, forceps biopsies and washings of the right upper lobe and right lower lobe lesions. SURGEON: Dr. Brown. MATH SPECIALIST: Bandar Beal, respiratory Therapy. ANESTHESIA: General anesthesia endotracheal intubation. 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 She really did not have much in the way of lymphadenopathy. She did have a lesion in the medial aspect of her right lower lobe. I felt that this would change her therapy markedly. I elected to proceed with electromagnetic navigational bronchoscopy and biopsy both of these lesions. I also we should do an endobronchial ultrasound right over there. On 03/15/2017, the patient underwent uncomplicated endobronchial ultrasound with biopsy of the left level 10, level 7 and right level 4, right level 11 lymph nodes. We got lymphocytes back on all of these. I then biopsied the right upper lobe lesion which it certainly appeared to me to be malignant based on the PET scan. We were able to get out this lesion fairly well and localized it with both the radial ultrasound and the navigational bronchoscopy probe. I then did brushes, but it is important to note that I approached this lesion from 3 different directions and did 3 brushings, 3 needle biopsies and multiple forceps biopsies with touch preps on all. I also did a washing of this lesion. The rapid onsite evaluation was performed by Dr. Abiel Dempsey and we did not see evidence of malignant cells. I then went down to the right lower lobe and this was a small lesion, was difficult to get to, however, I was able to get to this to the superior segmental airway and our ultrasound probe showed to be right in the middle of the small lesion. I then did multiple brushes, needle biopsies and forceps as well as washes. We did well over 40 separate slide preparations in this particular case for both lesions. We also did washings. She tolerated it well. DESCRIPTION OF PROCEDURE: The patient brought to the operating room and laid in supine position. General anesthesia induced and endotracheal intubation was performed with a large endotracheal tube. Prophylactic antibiotics were given and appropriate timeout was called. The endobronchial ultrasound probe was then placed. It should be noted that the patient really did not have any lymphadenopathy. The largest lymph node was 7 mm. I started off at the level 10 nodes on the left and biopsied it 3 separate times and one of the specimens did show it to have benign appearing lymphocytes. I really did not see the level 10 and level 4 on the left side. There were very small. There was also a small level 7 node and I biopsies these multiple times and we got good lymphocytes on this. I then went to level 11 node and I had to takeoff of the upper lobe bronchus from the bronchus intermedius and at this evan, I did several biopsies and got lymphocytes for this too. We really had no bleeding from this. I then biopsied the right level 4 node. Level 2 on both sides were very small. We had very little bleeding with this. Endobronchial ultrasound scope was then removed fiberoptic bronchoscope was replaced. I sucked out a scant amount of blood and then registered the patient. I then went up to the right upper medial lesion, but I was able to get close to this and biopsy it from an inferior aspect several times and ultrasound probe showed that there was an abnormality here. I did multiple brushes as well as multiple needle biopsies and forceps biopsies with touch preps. I then pulled back and repositioned so that was right in the middle of the lesion and although centimeter or so away and I did brushes, needles and biopsy forceps. I finally went a bit more superior in the more peripheral aspect of the mass and again the ultrasound showed that there was an abnormality here and I did brushings, needle biopsies and forces. I then did a washing and we could see there was a scant amount of bleeding, but this stopped fairly quickly. I then irrigated this out. We came back and went after a second target in the lower lobe. This was rather difficult to get to as it was in the superior segment; however, I was able to finally do much manipulation and able to come right out into this mass. Ultrasound probe showed to be right in the middle of it. I then did multiple brushings, needle biopsies and forceps biopsies. We got into some slight bleeding here. We irrigated this out with cold saline and I put a Marciano balloon up for several minutes in this particular subsegmental and then when I removed it, it stopped bleeding. We irrigated it out and there was no further bleeding. The closely inspected all the airways and saw no other abnormalities. We did do washings of this right lower lobe lesion. We did multiple slides but we saw no evidence of an obvious malignancy. We will have to wait to see what our cellblock look like. She tolerated this very well. I attest to the content of the Intraoperative Record and any orders documented therein. Any exception s are noted below.
[2017-03-15 11:30] VITALS: BP 123/60; PULSE 94; TEMP 37.2; O2SAT 91
--- NOTE | 2017-03-15 11:50 | Anesthesiology Progress Note ---
Anesthesia Post Op Note Date & Time Mar 15, 2017 at 11:50 Vital Signs Pain Intensity: 0 Vital Signs Past 12 Hours Date Time Temp Pulse Resp B/P (MAP) Pulse Ox O2 Delivery O2 Flow Rate FiO2 03/15/17 11:20 37.0 96 20 119/66 90 Nasal Cannula 2 03/15/17 11:10 91 20 120/60 91 Nasal Cannula 2 03/15/17 11:00 93 20 150/53 90 Nasal Cannula 3 03/15/17 10:50 88 20 143/53 90 Nasal Cannula 3 03/15/17 10:40 71 20 116/55 92 Nasal Cannula 4 03/15/17 10:30 48 20 149/40 94 Mask 6 03/15/17 10:20 55 20 165/50 94 Mask 10 03/15/17 10:10 54 20 133/67 95 Mask 10 03/15/17 10:00 55 20 175/61 95 Oxymask 15 Nebulizer 03/15/17 09:50 55 16 144/70 90 Oxymask 15 03/15/17 09:42 36.3 44 16 122/49 90 Oxymask 15 03/15/17 06:02 37 80 20 221/87 (131) 92 Room Air 158/83 (108) Notes Mental Status: alert / awake / arousable, participated in evaluation Pt Amnestic to Procedure: Yes Nausea / Vomiting: adequately controlled Pain: adequately controlled Airway Patency, RR, SpO2: stable & adequate BP & HR: stable & adequate Hydration State: stable & adequate Anesthetic Complications: no major complications apparent
[2017-03-15 12:15] VITALS: BP 152/65; PULSE 96; O2SAT 93
[2017-03-15 12:40] VITALS: BP 160/61; PULSE 91; TEMP 37.2; O2SAT 92
== END 2017-03-15 12:50 | disposition home or self-care (01) ==
LOC: C.ACU 05:05
PROVIDERS: ATTEND Surgery
DX: J98.4 Other disorders of lung (principal); K74.60 Unspecified cirrhosis of liver; E11.22 Type 2 diabetes mellitus with diabetic chronic kidney disease; I12.9 Hypertensive chronic kidney disease with stage 1 through stage 4 chronic kidney disease, or unspecified chronic kidney disease; N18.4 Chronic kidney disease, stage 4 (severe); N25.81 Secondary hyperparathyroidism of renal origin; I89.0 Lymphedema, not elsewhere classified; E03.9 Hypothyroidism, unspecified; E53.8 Deficiency of other specified B group vitamins; E55.9 Vitamin D deficiency, unspecified; E83.42 Hypomagnesemia; F32.9 Major depressive disorder, single episode, unspecified; E66.9 Obesity, unspecified; Z68.41 Body mass index [BMI] 40.0-44.9, adult; Z79.4 Long term (current) use of insulin; Z79.899 Other long term (current) drug therapy

== ENCOUNTER → 2017-03-29 | Outpatient (CLI) | payer OTHER ==
[2017-03-29 17:45] LABS: BASO % 0.1 %; BASO ABS # 0.01 K/uL (0-0.2); COMPLETE YES; EOS % 1.4 %; HEMATOCRIT 41.8 % (37-47); IG% 0.4 %; LYMPH % 18.2 %; LYMPH ABS # 1.56 K/uL (1.2-3.4); MEAN CELL VOLUME 92.5 fL (80-100); MEAN CORPUSCULAR HEMOGLOBIN 30.3 pg (25-34); MEAN CORPUSCULAR HGB CONC 32.8 g/dl (32-36); MEAN PLATELET VOLUME 10.3 fL (7.4-10.4); MONO % 6.3 %; NEUT % 73.6 %; PLATELET COUNT 210 K/uL (130-400); RED BLOOD COUNT 4.52 M/uL (4.2-5.4); WHITE BLOOD COUNT 8.57 K/uL (4.8-10.8)
[2017-03-29 17:48] LABS: INR 1.1 (0.9-1.1); PARTIAL THROMBOPLASTIN RATIO 1.1; PROTHROMBIN TIME (PATIENT) 11.3 SECONDS (9.0-12.0)
[2017-03-29 17:55] LABS: POTASSIUM 4.4 mmol/L (3.5-5.1)
[2017-03-29 17:57] LABS: BLOOD UREA NITROGEN 31 mg/dl (7-18); BUN/CREATININE RATIO 21.9 (10-20); CALCIUM 9.3 mg/dl (8.5-10.1); CARBON DIOXIDE 26 mmol/L (21-32); CHLORIDE 105 mmol/L (98-107); GLUCOSE 213 mg/dl (70-99); PHOSPHORUS 2.7 mg/dl (2.5-4.9); POTASSIUM 4.4 mmol/L (3.5-5.1); SODIUM 140 mmol/L (136-145)
[2017-03-30 06:28] LABS: ESTIMATED AVERAGE GLUCOSE 160 mg/dl; HA1C FLAG Normal (Normal)
== END | disposition home or self-care (01) ==
LOC: C.LABPVFM 10:23
DX: Z01.818 Encounter for other preprocedural examination (principal); E11.9 Type 2 diabetes mellitus without complications; N18.4 Chronic kidney disease, stage 4 (severe); Z87.891 Personal history of nicotine dependence

== ENCOUNTER → 2017-04-10 | Day surgery (SDC) | payer OTHER ==
[2017-04-03 15:04] VITALS: Ht 154.9 cm; Wt 102.3 kg
[~2017-04-10] VITALS: Ht 154.9 cm; Wt 102.3 kg
[~2017-04-10] MED LIST changes: +ALBUT/IPRATROP 3MG/0.5MG NEB 3 ML VIAL INH ONE; +ALBUT/IPRATROP 3MG/0.5MG NEB 3 ML VIAL ONE; +ATROPINE SULFATE 0.1 MG/ML 5ML SYR IV PRN; +DEXAMETHASONE SOD INJ 4 MG/ML VIAL ONE; +EpHEDrine SULFATE 50MG/5ML SYR ONE; +EpHEDrine SULFATE INJ 50 MG/ML AMP IV PRN; +EpINEphrine INJ 1MG/ML AMP 1 MG/ML AMP ONE; +FENTANYL CITRATE INJ 50 MCG/1 ML 2 ML VIAL IV PRN; +FENTANYL CITRATE INJ 50 MCG/1 ML 2 ML VIAL ONE; +HYDROCODONE/APAP 2.5MG/108MG ELIX 5 ML UDP PO PRN; +LABETALOL HCL IV 5 MG/ML 20ML IV ONE; +LABETALOL HCL IV 5 MG/ML 20ML IV STA; +LACTATED RINGER'S 1000ML 1,000 ML IV SCH; -LEVO125T4 PO; +LEVO125T5 PO; +LIDOCAINE 2% JELLY 5 ML TUBE EXT ONE; +LIDOCAINE HCL 2% 2 ML VIAL (20MG/ML) ONE; +ONDANSETRON INJ 2 MG/ML 2 ML VIAL IV PRN; +ONDANSETRON INJ 2 MG/ML 2 ML VIAL ONE; +PROPOFOL IV EMULSION 10 MG/ML 20 ML VIAL IV ONE
--- NOTE | 2017-04-10 11:06 | [facility] Operative Report ---
Operative Report Operative Date Apr 10, 2017. Pre-Operative Diagnosis Left Tonsillar Mass Post-Operative Diagnosis Same Procedure(s) Performed Direct Laryngoscopy With Left Tonsil Biopsy Surgeon Dr. Haro Personal Lines Underwriter Surgeon(s) None Estimated Blood Loss 10ML Findings 1. SUBTLE ENLARGEMENT OF THE LEFT TONSIL COMPARED TO THE RIGHT 2. UNABLE TO DELINEATE DEFINITIVE MALIGNANCY ON FROZEN/FRESH PATH SPECIMENS Specimens A. Left Tonsillar Mass - sent for FROZEN Section B. Left Tonsillar Mass - sent as FRESH Specimen C. Left Tonsillar Mass - sent as Permanent Specimen I attest to the content of the Intraoperative Record and any orders documented therein. Any exceptions are noted below.
--- NOTE | 2017-04-10 11:09 | Discharge Instructions ---
Discharge Instructions Date of Service Apr 10, 2017. Admission Reason for Admission: Tonsillar Mass Discharge Discharge Diagnosis / Problem: SAME Discharge Goals Goal(s): Diagnostic testing Activity Recommendations Activity Limitations: as noted below LIGHT ACTIVITY FOR 2 WEEKS . Current Hospital Diet Patient's current hospital diet: Full Liquid Diet Discharge Diet Recommended Diet: Full Liquid Diet Diet Texture: Mechanical Soft (ground) Procedures Procedures Performed: Direct Laryngoscopy With Left Tonsil Biopsy Pending Studies Studies pending at discharge: no Laboratory Results Hemoglobin A1c Test 03/29/17 15:30 Range/Units Estimated Average Glucose 160 mg/dl Hemoglobin A1c 7.2 H 4.5-5.6 % Medical Emergencies . Who to Call and When: Medical Emergencies: If at any time you feel your situation is an emergency, please call 911 immediately. . Non-Emergent Contact Non-Emergency issues call your: Surgeon . . "Provider Documentation" section prepared by Tony Haro. . VTE Core Measure Inpt VTE Proph given/why not?: SCD's
--- NOTE | 2017-04-10 11:33 | OPERATIVE REPORT ---
DATE OF OPERATION: 04/10/2017 PREOPERATIVE DIAGNOSIS: Hypermetabolic left tonsillar mass on PET scan. POSTOPERATIVE DIAGNOSIS: Same. PROCEDURE: 1. Direct laryngoscopy. 2. Left tonsillar biopsy. SURGEON: Tony Haro MD. ANESTHESIA: General endotracheal. ESTIMATED BLOOD LOSS: 10 mL. FINDINGS: 1. Subtle enlargement of the left tonsil compared to the right hand side. 2. No definitive diagnosis on frozen and fresh pathological specimens of the left tonsil. SPECIMENS: Left tonsil for frozen, fresh and permanent pathological assessment. COMPLICATIONS: None. INDICATIONS: The patient is an 87-year-old female who was referred to me by Dr. 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 Interestingly, the patient is completely asymptomatic. She is a former smoker but does currently drink alcohol. On examination, she had subtle fullness of her left tonsil which was soft on palpation without any mucosal irregularity, lesion or ulceration. I had recommended biopsies in the operating room with frozen, fresh and permanent pathological sections. The patient presents for the above-mentioned procedure on an outpatient elective basis. DESCRIPTION OF PROCEDURE: After informed consent had been obtained from the patient, the patient was wheeled to the operating room and placed on the operating table in the supine position. Monitors were placed. After induction of general endotracheal anesthesia, patient was prepped in the usual fashion for laryngoscopy. A moistened Ray-Nba sponge was placed over the edentulous maxillary alveolus and the operating microscope was inserted and used to inspect the oral cavity, oropharynx, hypopharynx and larynx. The only abnormality was subtle enlargement of the left tonsil which was soft on palpation. The laryngoscope was then carefully removed. A mouth gag was then carefully inserted, opened and stabilized on a roll of towels. An Allis clamp was used to grasp the left tonsil and the superior pole and using straight cup forceps, multiple biopsies were taken of the left tonsil in both the superficial aspect of the tonsil as well as deep. Multiple pieces were sent for frozen, fresh and permanent pathological assessment. Approximately 1/4 of the tonsil was removed with the biopsies. Suction Bovie electrocautery was used to achieve adequate hemostasis. 2% lidocaine jelly was then placed on the left tonsillar biopsy site for anesthetic effect. An orogastric tube was placed and stomach suctioned free of air and some of the contents. Pathology could not be determined based on the frozen and fresh pathological assessment. Pathology stated there was a lymphoid infiltrate and there was some evidence of inflammation, but they were not able to make a diagnosis of lymphoma or carcinoma based on the specimens that they looked at. Once again, multiple pieces were taken for permanent pathological assessment. The decision was made to terminate the procedure and not to perform any more deep biopsies as the patient had fairly bounding left carotid artery. This marked the end of the case. The patient tolerated the procedure well with no apparent complications. All the instrumentation was removed from the patient. The patient was extubated and transferred to recovery room in stable condition. I attest to the content of the Intraoperative Record and any orders documented therein. Any exception s are noted below.
[2017-04-10 12:10] VITALS: TEMP 36.8
[2017-04-10 12:40] VITALS: BP 155/77; PULSE 80; O2SAT 94
--- NOTE | 2017-04-10 12:41 | Anesthesia Progress Nt - [facility] ---
Anesthesia Post Op Note Date & Time Apr 10, 2017 at 12:41 Vital Signs Pain Intensity: 0 Vital Signs Past 12 Hours Date Time Temp Pulse Resp B/P (MAP) Pulse Ox O2 Delivery O2 Flow Rate FiO2 04/10/17 12:40 155/77 (103) 04/10/17 12:15 79 94 Room Air 04/10/17 12:10 36.8 18 152/74 (100) 04/10/17 11:56 80 26 04/10/17 11:56 79 26 92 04/10/17 11:55 80 18 04/10/17 11:55 80 18 158/71 95 04/10/17 11:53 162/83 04/10/17 11:51 181/70 04/10/17 11:50 83 15 04/10/17 11:50 83 15 94 04/10/17 11:49 78 30 04/10/17 11:49 81 30 94 04/10/17 11:48 37.1 Room Air 04/10/17 11:45 156/72 04/10/17 11:44 86 23 04/10/17 11:44 23 04/10/17 11:40 164/89 04/10/17 11:39 91 21 04/10/17 11:39 91 21 97 04/10/17 11:35 173/77 04/10/17 11:34 86 25 04/10/17 11:34 94 25 168/75 98 04/10/17 11:33 183/71 04/10/17 11:31 166/67 04/10/17 11:29 90 22 96 04/10/17 11:29 87 22 04/10/17 11:26 164/75 04/10/17 11:24 92 28 04/10/17 11:24 92 28 97 04/10/17 11:23 93 25 134/54 97 04/10/17 11:23 88 25 04/10/17 11:21 179/49 04/10/17 11:18 95 17 97 04/10/17 11:18 94 17 04/10/17 11:16 142/66 04/10/17 11:13 90 15 04/10/17 11:13 94 15 96 04/10/17 11:11 134/58 04/10/17 11:09 171/38 04/10/17 11:08 36.8 89 20 171/38 95 Mask 6 04/10/17 07:51 37.0 86 24 147/69 (95) 93 Room Air Notes Mental Status: alert / awake / arousable, participated in evaluation Pt Amnestic to Procedure: Yes Nausea / Vomiting: adequately controlled Pain: adequately controlled Airway Patency, RR, SpO2: stable & adequate BP & HR: stable & adequate Hydration State: stable & adequate Anesthetic Complications: no major complications apparent
== END | disposition home or self-care (01) ==
LOC: X.SURG 07:06
DX: J35.1 Hypertrophy of tonsils (principal); Z87.891 Personal history of nicotine dependence; K74.60 Unspecified cirrhosis of liver; E11.22 Type 2 diabetes mellitus with diabetic chronic kidney disease; I12.9 Hypertensive chronic kidney disease with stage 1 through stage 4 chronic kidney disease, or unspecified chronic kidney disease; N18.4 Chronic kidney disease, stage 4 (severe); E83.42 Hypomagnesemia; E53.9 Vitamin B deficiency, unspecified; E55.9 Vitamin D deficiency, unspecified; E03.9 Hypothyroidism, unspecified; R91.1 Solitary pulmonary nodule; E66.9 Obesity, unspecified; Z68.41 Body mass index [BMI] 40.0-44.9, adult; R26.9 Unspecified abnormalities of gait and mobility; F32.9 Major depressive disorder, single episode, unspecified; Z79.4 Long term (current) use of insulin; Z79.899 Other long term (current) drug therapy

== ENCOUNTER → 2017-07-10 | Outpatient (CLI) | payer OTHER ==
[~2017-07-10] MED LIST changes: -ALBUT/IPRATROP 3MG/0.5MG NEB 3 ML VIAL INH ONE; -ALBUT/IPRATROP 3MG/0.5MG NEB 3 ML VIAL ONE; -ATROPINE SULFATE 0.1 MG/ML 5ML SYR IV PRN; -DEXAMETHASONE SOD INJ 4 MG/ML VIAL ONE; -EpHEDrine SULFATE 50MG/5ML SYR ONE; -EpHEDrine SULFATE INJ 50 MG/ML AMP IV PRN; -EpINEphrine INJ 1MG/ML AMP 1 MG/ML AMP ONE; -FENTANYL CITRATE INJ 50 MCG/1 ML 2 ML VIAL IV PRN; -FENTANYL CITRATE INJ 50 MCG/1 ML 2 ML VIAL ONE; -HYDROCODONE/APAP 2.5MG/108MG ELIX 5 ML UDP PO PRN; -LABETALOL HCL IV 5 MG/ML 20ML IV ONE; -LABETALOL HCL IV 5 MG/ML 20ML IV STA; -LACTATED RINGER'S 1000ML 1,000 ML IV SCH; -LIDOCAINE 2% JELLY 5 ML TUBE EXT ONE; -LIDOCAINE HCL 2% 2 ML VIAL (20MG/ML) ONE; -ONDANSETRON INJ 2 MG/ML 2 ML VIAL IV PRN; -ONDANSETRON INJ 2 MG/ML 2 ML VIAL ONE; -PROPOFOL IV EMULSION 10 MG/ML 20 ML VIAL IV ONE
--- NOTE | 2017-07-10 12:24 | DIAGNOSTIC IMAGING REPORT ---
PET/CT CLINICAL HISTORY: Head and neck cancer. COMPARISON STUDY: PET/CT dated 03/13/2017. TECHNIQUE: One hour following the IV administration of 11.0 mCi of F-18 FDG, PET/CT examination was performed from the vertex through the bony pelvis. Noncontrast CT is performed for the purposes of anatomic correlation and attenuation correction. Note that this does not reflect a diagnostic CT examination. Images were reviewed on a separate [employer] independent workstation. Fused images were obtained. Standard uptake values reported are maximum values within the region of interest expressed in gm/mL. FINDINGS: PET FINDINGS: Head and neck: There is expected physiologic activity within the brain parenchyma and the salivary glands. An intensely FDG avid left peritonsillar mass lesion is again seen on image #74 of the head and neck series. This demonstrates a maximum SUV of 17.4 and measures approximately 2 x 3 cm. No FDG avid cervical adenopathy is identified. Thorax: Evaluation of the thorax demonstrates expected physiologic myocardial activity. There is a 4.9 x 4.2 cm FDG avid lesion in the medial right middle lobe seen on image #116. This is markedly FDG avid with a maximum SUV of 8.9. There is a new 0.8 cm nodule in the right lower lobe seen on image #112. This was not demonstrably FDG avid but is likely too small for PET characterization. Abdomen and pelvis: There is expected activity within the liver, spleen, kidneys, renal collecting system, and bladder. Low-level bowel activity is likely within physical limits. Unenhanced CT images: The brain parenchyma is normal as visualized noting age-related involutional change and microangiopathic disease. The bony orbits appear intact. Orbital contents are normal in appearance noting bilateral ocular lens implants. Moderate mucosal thickening and air-fluid levels are seen in the left maxillary antrum. There is mucosal thickening within the left ethmoid sinuses. The remaining paranasal sinuses and the mastoid air cells are clear. The salivary glands are normal in appearance. The thyroid gland is atrophic. There is atherosclerotic calcification of the thoracic aorta which is normal in caliber. The pulmonary trunk is dilated, measuring up to 3.7 cm. This suggests pulmonary artery hypertension. There is no mediastinal, hilar, or axillary lymphadenopathy. No airspace consolidation or pleural effusion is identified. See above under PET findings for discussion of pulmonary lesions. A fat-containing Bochdalek hernia is noted at the right lung base. The heart is enlarged and without pericardial effusion. The coronary arteries are densely calcified. There is a tiny hiatal hernia. The liver is cirrhotic in morphology and heterogeneous in attenuation. The gallbladder surgically absent. The spleen is enlarged measuring 14 cm in length. Low-attenuation left adrenal nodules are consistent with adenomas. These were not demonstrably FDG avid. The right adrenal gland is normal. The unenhanced pancreas is atrophic and grossly unremarkable. The kidneys are atrophic and without hydronephrosis. A minimally complex left renal cyst measures 5.5 cm and demonstrates thin peripheral calcifications. The abdominal aorta is normal in caliber noting moderate to advanced atherosclerotic calcification. No bowel obstruction is seen. A fat-containing umbilical hernia contains a nonobstructed segment of bowel. There is a large duodenal diverticulum. There is moderate colonic diverticulosis without CT evidence of acute diverticulitis. No intraperitoneal free air or abdominal ascites is seen. There is no abdominal, pelvic, retroperitoneal, or inguinal lymphadenopathy. Oh decompressed, the bladder appears thick walled and there is pericystic inflammation. The skeletal structures are osteopenic. Chronic posterior matter deformity is seen in the right proximal femur. No lytic or blastic osseous lesion is suggested. There are bilateral pars defects at L5 with minimal anterolisthesis at L5-S1. Foci of induration within the ventral abdominal pannus are likely related to subcutaneous injections. IMPRESSION: 1. There has been increase in size of a right middle lobe mass lesion as compared to 03/13/2017. This remains markedly FDG avid and is consistent with neoplasm. 2. There is a new 0.8 cm nodule in the right lower lobe. This was not demonstrably FDG but is likely too small for definitive PET characterization. This is also highly concerning for metastatic disease. 3. A markedly FDG avid left peritonsillar mass lesion also appears to have increased in size and remains highly concerning for neoplasm. 4. No evidence of metastatic disease is seen below the diaphragm. 5. Cirrhotic liver morphology. Splenomegaly suggests portal hypertension. 6. Moderate colonic diverticulosis without CT evidence of acute diverticulitis. 7. An umbilical hernia contains a nonobstructed segment of bowel. 8. Although decompressed, the bladder wall appears thickened and there is pericystic inflammation. Correlate clinically and with urinalysis for evidence of cystitis. 9. Additional findings as above. Electronically signed by: Ben Anglin M.D. 07/10/2017 12:22 PM Dictated Date/Time: 07/10/2017 12:04 PM
== END | disposition home or self-care (01) ==
LOC: C.PET 09:09
DX: C09.0 Malignant neoplasm of tonsillar fossa (principal); R91.8 Other nonspecific abnormal finding of lung field; K74.60 Unspecified cirrhosis of liver; R16.1 Splenomegaly, not elsewhere classified; K57.30 Diverticulosis of large intestine without perforation or abscess without bleeding; K42.9 Umbilical hernia without obstruction or gangrene; R93.41 Abnormal radiologic findings on diagnostic imaging of renal pelvis, ureter, or bladder

== ENCOUNTER → 2017-08-14 | Outpatient (CLI) | payer OTHER ==
[~2017-08-14] MED LIST changes: +CALC0.2510 PO
[2017-08-14 17:53] LABS: HEMATOCRIT 42.6 % (37-47); HEMOGLOBIN 13.8 g/dL (12.0-16.0); MEAN CELL VOLUME 90.6 fL (80-100); MEAN CORPUSCULAR HEMOGLOBIN 29.4 pg (25-34); MEAN CORPUSCULAR HGB CONC 32.4 g/dl (32-36); MEAN PLATELET VOLUME 10.1 fL (7.4-10.4); PLATELET COUNT 247 K/uL (130-400); RED CELL DISTRIBUTION WIDTH CV 15.5 % (11.5-14.5); RED CELL DISTRIBUTION WIDTH SD 51.6 fL (36.4-46.3); WHITE BLOOD COUNT 9.74 K/uL (4.8-10.8)
[2017-08-14 18:29] LABS: ALBUMIN 3.3 gm/dl (3.4-5.0); AST/SGOT 14 U/L (15-37); BLOOD UREA NITROGEN 28 mg/dl (7-18); CALCIUM 9.4 mg/dl (8.5-10.1); CARBON DIOXIDE 26 mmol/L (21-32); CREATININE 1.42 mg/dl (0.60-1.20); GLUCOSE 174 mg/dl (70-99); POTASSIUM 4.3 mmol/L (3.5-5.1); SODIUM 135 mmol/L (136-145)
[2017-08-14 18:40] LABS: ALKALINE PHOSPHATASE 191 U/L (45-117); ALT/SGPT 20 U/L (12-78); CHOLESTEROL 218 mg/dl (0-200); LDL CHOLESTEROL CALCULATED 127 mg/dl; PHOSPHORUS 2.2 mg/dl (2.5-4.9); TOTAL PROTEIN 8.2 gm/dl (6.4-8.2)
[2017-08-15 06:51] LABS: HEMOGLOBIN A1C 7.8 % (4.5-5.6)
== END | disposition home or self-care (01) ==
LOC: C.LABPVFM 13:30
PROVIDERS: ATTEND Family Medicine
DX: R91.1 Solitary pulmonary nodule (principal); N18.4 Chronic kidney disease, stage 4 (severe)

== ENCOUNTER 2017-09-21 05:20 | Inpatient (IN) | payer OTHER ==
[2017-09-04 11:14] VITALS: BMI 43.0
[~2017-09-21] VITALS: Ht 154.9 cm; Wt 103.6 kg
[2017-09-21] VITALS (13 sets, daily range): BP systolic 113–180; BP diastolic 64–81; PULSE 72–95; TEMP 36.4–37.7; O2SAT 88–95; Ht 154.9 cm; Wt 103.6 kg
[~2017-09-21 05:20] MED LIST changes: +LACTATED RINGER'S 1000ML 1,000 ML IV SCH
[2017-09-21] MEDS ORDERED: ONDANSETRON INJ 2 MG/ML 2 ML VIAL ONE (06:23)
[2017-09-21] MEDS ORDERED: FENTANYL CITRATE INJ 50 MCG/1 ML 2 ML VIAL ONE ×2 (06:23→07:40)
[2017-09-21] MEDS ORDERED: ROCURONIUM BROMIDE 10 MG/ML 5 ML VIAL IV ONE (06:23)
[2017-09-21] MEDS ORDERED: PROPOFOL IV EMULSION 10 MG/ML 20 ML VIAL IV ONE (06:23)
[2017-09-21] MEDS ORDERED: LIDOCAINE HCL 2% 2 ML VIAL (20MG/ML) ONE (06:23)
[2017-09-21] MEDS ORDERED: BUPIVACAINE 0.5 % 5 MG/1 ML MPF 30ML VIAL ONE (07:31)
[2017-09-21] MEDS ORDERED: SODIUM CHLORIDE 0.9% PF 50 ML VIAL ONE ×2 (07:31)
[2017-09-21] MEDS ORDERED: BUPIVACAINE LIPOSOME 1/3% 266 MG/20 ML VIAL INFIL ONE (07:31)
[2017-09-21] MEDS ORDERED: CEFAZOLIN SOD 1 GM VIAL ONE (08:08)
[2017-09-21] MEDS ORDERED: PHENYLEPHRINE 100MCG/ML 5ML SYR ONE (08:29)
[2017-09-21] MEDS ORDERED: PHENYLEPHRINE HCL INJ 10 MG/ML VIAL ONE (08:29)
[2017-09-21] MEDS ORDERED: TISSEEL FIBRIN SEALANT 10ML TOP ONE (09:32)
[2017-09-21] MEDS ORDERED: TISSEEL FIBRIN SEALANT 4ML TOP ONE ×2 (09:44→09:49)
[2017-09-21] MEDS ORDERED: HYDROmorphone INJ 1 MG/ML SYR IV PRN (09:45)
[2017-09-21] MEDS ORDERED: ONDANSETRON INJ 2 MG/ML 2 ML VIAL IV PRN ×2 (09:45→10:30)
[2017-09-21] MEDS ORDERED: MEPERIDINE HCL 25 MG/ML CARP IV PRN (09:45)
[2017-09-21] MEDS ORDERED: LABETALOL HCL IV 5 MG/ML 20ML IV PRN (09:45)
[2017-09-21] MEDS ORDERED: ATROPINE SULFATE 0.1 MG/ML 5ML SYR IV PRN (09:45)
[2017-09-21] MEDS ORDERED: FENTANYL CITRATE INJ 50 MCG/1 ML 2 ML VIAL IV PRN (09:45)
[2017-09-21] MEDS ORDERED: EpHEDrine SULFATE INJ 50 MG/ML AMP IV PRN (09:45)
[2017-09-21] MEDS ORDERED: NEOSTIGMINE METHYLSULFATE 5 MG/5 ML SYR ONE (09:50)
[2017-09-21] MEDS ORDERED: GLYCOPYRROLATE INJ 0.2 MG/ML VIAL ONE (09:50)
--- NOTE | 2017-09-21 10:19 | [facility] Post Operative Brief Note ---
Immediate Operative Summary Operative Date Sep 21, 2017. Pre-Operative Diagnosis Enlarging hypermetabolic mass right middle lobe Post-Operative Diagnosis Same Procedure(s) Performed Robot Assisted Right Video Assisted Thoracoscopy with Right Middle Lobe Wedge Resection with Lymph node biopsies Surgeon Dr Brown Mud Worker Surgeon(s) Rustam Rose PA-C Estimated Blood Loss 45ml Findings Consistent with Post-Op Diagnosis Specimens Culture #1 Straight cathed urine culture for gram stain, aerobic, anaerobic Culture #2 right middle lobe and pericardial fat for gram stain, aerobic, anaerobic, fungal, AFB Frozen section #1 medial middle lobe sent out at [address] Brown by pathologist A. Pericardial fat B. Level R4 lymph nodes x's2 C. Level R2 lymph node D. Level R9 lymph node Anesthesia Type General
[2017-09-21] MEDS ORDERED: ALBUTEROL HFA 8 GM INHALER INH PRN (10:30)
[2017-09-21] MEDS ORDERED: MoRPHine SULFATE 2 MG/ML CARP IV PRN (10:30)
[2017-09-21] MEDS ORDERED: LABETALOL HCL IV 5 MG/ML 20ML IV ONE (10:46)
[2017-09-21] MEDS ORDERED: NovoLIN-R INSULIN PER UNIT CHARGE ONE (11:13)
[2017-09-21] MEDS ORDERED: NURSING VERBAL MED ORDER ONE (11:15)
--- NOTE | 2017-09-21 11:34 | DIAGNOSTIC IMAGING REPORT ---
CHEST ONE VIEW PORTABLE CLINICAL HISTORY: RML wedge postoperative evaluation COMPARISON STUDY: 03/15/2017 FINDINGS: Operative findings consistent with a right middle lobe wedge resection. Right sided chest tube is present. There is a very small right apical and medial right basilar pneumothorax. Maximum pleural separation is 3 mm. There are increased parenchymal densities in both lung bases persists. There is chronic pulmonary vascular congestion. IMPRESSION: Minimal postprocedural pneumothorax with a maximum pleural separation of 3 mm. The above report was generated using voice recognition software. It may contain grammatical, syntax or spelling errors. Electronically signed by: Chago Benjamin M.D. 09/21/2017 11:32 AM Dictated Date/Time: 09/21/2017 11:31 AM
--- NOTE | 2017-09-21 13:35 | Anesthesiology Progress Note ---
Anesthesia Post Op Note Date & Time Sep 21, 2017 at 13:35 Vital Signs Pain Intensity: 0 Vital Signs Past 12 Hours Date Time Temp Pulse Resp B/P (MAP) Pulse Ox O2 Delivery O2 Flow Rate FiO2 09/21/17 13:30 Nasal Cannula 3.0 09/21/17 13:00 36.7 74 16 142/66 (91) 93 Nasal Cannula 3.0 09/21/17 12:45 36.8 75 16 156/71 (99) 94 Nasal Cannula 3.0 09/21/17 12:45 94 Nasal Cannula 3.0 09/21/17 12:35 76 18 161/69 97 Nasal Cannula 4 09/21/17 12:25 36.5 75 20 148/62 97 Nasal Cannula 4 Arterial Line 09/21/17 12:15 74 20 139/52 97 Nasal Cannula 4 150/51 (80) 09/21/17 12:05 66 18 139/54 98 Nasal Cannula 4 149/52 (82) 09/21/17 11:55 68 18 132/54 97 Nasal Cannula 4 144/50 (78) 09/21/17 11:45 65 18 128/58 96 Nasal Cannula 4 130/46 (71) 09/21/17 11:35 65 18 104/51 94 Nasal Cannula 4 102/42 (59) 09/21/17 11:25 63 18 96/47 93 Nasal Cannula 4 93/40 (54) 09/21/17 11:15 67 18 101/48 94 Nasal Cannula 4 09/21/17 11:05 70 18 134/56 97 Oxymask 5 09/21/17 10:55 70 18 128/57 97 Oxymask 10 09/21/17 10:45 70 16 136/65 98 Oxymask 15 09/21/17 10:37 36.0 70 18 116/67 89 Oxymask 15 09/21/17 05:50 36.4 95 22 180/81 95 Room Air Notes Mental Status: alert / awake / arousable, participated in evaluation Pt Amnestic to Procedure: Yes Nausea / Vomiting: adequately controlled Pain: adequately controlled Airway Patency, RR, SpO2: stable & adequate BP & HR: stable & adequate Hydration State: stable & adequate Anesthetic Complications: no major complications apparent
[2017-09-21] MEDS ORDERED: GLUCOSE 40% GEL 15 GM TUBE PO PRN (13:45)
[2017-09-21] MEDS ORDERED: GLUCOSE 10 TABS/TUBE PO PRN (13:45)
[2017-09-21] MEDS ORDERED: DEXTROSE 50% 50 ML SYR IV PRN (13:45)
[2017-09-21] MEDS ORDERED: GLUCAGON FOR INJ 1 MG VIAL SQ PRN (13:45)
[2017-09-21] MEDS ORDERED: PHARMACY GLYCEMIC MGMT CONSULT PRN (14:20)
[2017-09-21] MEDS: METOCLOPRAMIDE HCL INJ 5 MG/ML 2 ML VIAL IV. SCH ×2 (14:34→21:24)
[2017-09-21] MEDS: SODIUM CHLORIDE 0.9% 1000ML 1,000 ML IV SCH (14:35)
--- NOTE | 2017-09-21 14:55 | Pharmacy Progress Note ---
Glycemic Control Intl Consult Date of Service Sep 21, 2017. Scope Glycemic Pharmacist consulted by Efraín Rose on 09/21 for glycemic control and to write orders per [facility] inpatient glycemic control protocol Objective Weight (Kilograms): 103.640 Accuchecks BSG (last 24hrs): Test 09/21/17 06:00 09/21/17 11:06 09/21/17 11:07 09/21/17 12:36 Bedside Glucose 173 mg/dl (70-90) 314 mg/dl (70-90) 303 mg/dl (70-90) 304 mg/dl (70-90) Recent Pertinent Medications Outpatient Anti-diabetic Regimen: * Lantus 20 units BID, Novolog SSI TIDM: 13 units BSG <120; 14 units BSG 121-150 ; 15 units BSG 151-180; 16 units >181 * A1c = 7.8 % 08/14/17 The patient is currently receiving: * 10 units IV regular insulin Risk Factors for Insulin Resistance: * Recent Surgery: POD #0, Right lobe resection * Diet: T2DM Assessment & Plan ASSESSMENT: * 87 yo female admitted post-op day #0 for right middle lobe resection * Hyperglycemic following surgery, fasting this AM 173 * Patient outpatient receives total daily dose minimum of 76 units daily PLAN FOR INPATIENT GLYCEMIC CONTROL: * Basal insulin with LANTUS 20 units SQ BID * Correctional Insulin with NOVOLOG / REGULAR per scale ACHS or Q6hrs while NPO * Goal Range: Low 110 mg/dL - High 150 mg/dL * Correction Factor: 15 mg/dL/unit * Nutritional / Prandial insulin per carb ratio of 1 unit per 5 grams CHO consumed * Please note that the plan above was derived based on current level of insulin resistance and hospital stress. These recommendations are appropriate for inpatient admission only. Plan of care upon discharge will need to be reassessed to avoid potential outpatient hypo/hyperglycemia. Thank you.
[2017-09-21] MEDS: OXYCODONE HCL IR 5 MG TAB (IMMEDIATE RELEASE) PO PRN ×2 (15:13→21:23)
[2017-09-21] MEDS: SULFAMETHOXAZOLE/TRIMETHOPRIM DS 800/160MG TAB PO SCH (15:28)
[2017-09-21] MEDS: INSULIN ASPART 100 UNITS/ML 3 ML PEN SC SCH ×3 (15:32→20:48)
[2017-09-21] MEDS: ACETAMINOPHEN IV 1,000 MG in EMPTY BAG 0 ML IV SCH ×2 (15:33→23:53)
--- NOTE | 2017-09-21 18:31 | OPERATIVE REPORT ---
DATE OF OPERATION: 09/21/2017 PREOPERATIVE DIAGNOSIS: Hypermetabolic mass medial right middle lobe. POSTOPERATIVE DIAGNOSIS: Apparent inflammatory process medial right middle lobe. PROCEDURE: 1. Robot-assisted thoracoscopic surgery with takedown of right adhesions and excision of portion of right middle lobe and pericardial fat. 2. Lymph node biopsies. SURGEON: Leon Brown MD EDITOR IN CHIEF: DANIELLE Chopra (Mr. Rose was present for the entire case and was at the bedside while I was at the consult. He also closed the skin incisions at the conclusion.) ANESTHESIA: General anesthesia endotracheal intubation double lumen tube. INDICATION FOR PROCEDURE: Felicita Hsu is a very interesting 87-year-old whom I have been following for quite some time. She looks fine, but is found to have a hypermetabolic mass in her lung. She also had a large left tonsil which is hypermetabolic. Back in March, I performed an endobronchial ultrasound with biopsy as well as navigational bronchoscopy and we never did find any evidence of malignancy. I was actually a bit concerned about this, but it all appeared to be inflammatory. Lymph nodes appeared to be benign. We then elected to watch her. She also had a biopsy of her left tonsil by Dr. Tony Haro. Patient came back in with a repeat PET which showed enlargement of her tonsillar and probably the right middle lobe mass also which were markedly hypermetabolic. Dr. Tony Haro performed a tonsillectomy and this tissue appears to be simply reactive lymphocyte. It is not appeared to be lymphoma and certainly not a malignancy. Patient does have a history of cigarette smoking and is concerned of this mass in her right middle lobe. I presented her at our multidisciplinary cancer conference and it was felt that excising this would be best given her relatively low yield for doing a bronchoscopy. On 09/21/2017, I brought the patient to the operating room and did a robot-assisted thoracoscopic takedown of adhesions. I excised large amount of pericardial fat which was attached to the medial aspect of the middle lobe. I also excised a large portion of this. After we delivered this off the field, I did biopsy of lymph nodes; however, I then got frozen section back and discussed this in detail with Dr. Cox. I did not feel comfortable going ahead with a right middle lobectomy for a couple reasons: 1. This process was going into the right upper lobe. 2. I do not want to do a middle lobectomy and did a wedge resection of the upper lobe for a benign process. After deliberation, I elected to proceed with closing. We did an Exparel intercostal block and closed. She awakened without difficulty from anesthesia. DESCRIPTION OF PROCEDURE: The patient brought to operating room and laid in supine position. General anesthesia induced and endotracheal intubation was performed to double lumen tube. The patient was turned in left lateral decubitus position, right chest prepped and draped in usual sterile fashion. Four robotic port sites were made. There was one 12 mm port for the camera, two 8 mm ports and a 5 mm port placed in about the eighth interspace extending from medial to lateral. At the tenth interspace anteriorly, a 15 mm port was made for the assistance. I then noted immediately there were some abnormalities noted in the medial aspect of the middle lobe and it was attached to quite a few things. I meticulously took this out with care taken to avoid injury to the phrenic nerve and excised a fair amount of pericardial fat, then wedged out a large segment of this. This was delivered off the field in an Endobag. Dr. Shahab Cox evaluated this from frozen section standpoint and said he could not call this a cancer and did not appear to be a lymphoma. He wondered about cultures, so I sent him off another small segment by wedging it out. It should be noted I did not remove this entire process because it would have involved going into the upper lobe. As it appeared to be benign, I elected to stop here. While waiting for the frozen section, I did dissect the level 2, level 4, level 9 lymph nodes and delivered them off the field. I really got into no bleeding. 266 mg of Exparel mixed with 30 mL of 0.5% bupivacaine and 150 mL of normal saline injected from the 2nd through the 11th rib. A 24-[place] chest tube was placed through the anterior thoracoscopy port and directed towards the apex, sutured in place, heavy silk suture. Patient was awakened without difficulty from anesthesia. She had no air leak. Her blood loss was negligible. She was returned to the postanesthesia care unit in stable condition. I attest to the content of the Intraoperative Record and any orders documented therein. Any exception s are noted below.
[2017-09-21] MEDS: MAGNESIUM OXIDE 400 MG TAB PO SCH (20:52)
[2017-09-21] MEDS: METOPROLOL SUCC 25MG EXT REL TAB PO SCH (20:52)
[2017-09-21] MEDS: DOCUSATE SODIUM 100 MG CAP PO SCH (20:53)
[2017-09-21] MEDS: LEVOTHYROXINE 125 MCG TAB PO SCH (20:53)
[2017-09-21] MEDS: INSULIN GLARGINE SOLOSTAR 100 UNITS/ML 3 ML PEN SC SCH (21:00)
[2017-09-22] VITALS (7 sets, daily range): BP systolic 131–164; BP diastolic 60–72; PULSE 60–84; TEMP 36.8–37.3; O2SAT 90–96
[2017-09-22] MEDS: INSULIN ASPART 100 UNITS/ML 3 ML PEN SC SCH ×6 (03:58→21:10)
[2017-09-22] MEDS: SODIUM CHLORIDE 0.9% 1000ML 1,000 ML IV SCH (03:59)
[2017-09-22] MEDS: METOCLOPRAMIDE HCL INJ 5 MG/ML 2 ML VIAL IV. SCH (06:06)
[2017-09-22] MEDS: SULFAMETHOXAZOLE/TRIMETHOPRIM DS 800/160MG TAB PO SCH ×2 (06:07→21:07)
--- NOTE | 2017-09-22 07:19 | Discharge Instructions ---
Discharge Instructions Date of Service Sep 22, 2017. Admission Reason for Admission: Mass Of Right Lung Discharge Discharge Diagnosis / Problem: Mass Of Right Lung Discharge Goals Goal(s): Learn about illness Activity Recommendations Activity Limitations: as noted below Lifting Limitations: none 1. You may remove dressings in 3 days and shower thereafter. No tub baths. 2. Do not drive until cleared to do so by Dr Brown. . Instructions / Follow-Up Instructions / Follow-Up 1. Office appointment with Dr. Brown in 1 week. Office will call you with date and time of appointment. Go to hospital 1 hour before appointment to have a chest x-ray taken. Current Hospital Diet Patient's current hospital diet: Diabetes Type 2 Diet Discharge Diet Recommended Diet: Diabetes Type 2 Diet Procedures Procedures Performed: Robot Assisted Right Video Assisted Thoracoscopy with Right Middle Lobe Wedge Resection with Lymph node biopsies Pending Studies Studies pending at discharge: no Laboratory Results Hemoglobin A1c Test 08/14/17 13:40 Range/Units Estimated Average Glucose 177 mg/dl Hemoglobin A1c 7.8 H 4.5-5.6 % Lipid Panel Test 08/14/17 13:40 Range/Units Triglycerides Level 179 H 0-150 mg/dl Cholesterol Level 218 H 0-200 mg/dl HDL Cholesterol 55 mg/dl Cholesterol/HDL Ratio 4.0 LDL Cholesterol, Calculated 127 mg/dl Medical Emergencies . Who to Call and When: Medical Emergencies: If at any time you feel your situation is an emergency, please call 911 immediately. . Non-Emergent Contact Non-Emergency issues call your: Surgeon Call Non-Emergent contact if: you have a fever, your pain is not controlled, wound has increased drainage . "Provider Documentation" section prepared by Efraín Rose. .
--- NOTE | 2017-09-22 07:45 | DIAGNOSTIC IMAGING REPORT ---
CHEST ONE VIEW PORTABLE CLINICAL HISTORY: 87 years-old Female presenting with RML wedge. TECHNIQUE: Portable upright AP view of the chest was obtained. COMPARISON: 09/21/2017. FINDINGS: Large bore right pleural drain position at the paramediastinal right lung. Atherosclerosis of the aortic arch. Cardiac silhouette moderately enlarged, unchanged. Persistent right paramediastinal basilar opacity and left retrocardiac opacity. Trace pleural effusions may be present. No significant residual pneumothorax is apparent on the right. Mild pulmonary vascular prominence. Degenerative changes of the right acromioclavicular joint. Upper abdomen normal. IMPRESSION: 1. Persistent bibasilar densities, possibly postsurgical changes or atelectasis. 2. Large bore right pleural drain without significant residual pneumothorax. 3. Cardiomegaly with evidence of volume overload. Electronically signed by: Shahab Varma M.D. 09/22/2017 7:44 AM Dictated Date/Time: 09/22/2017 7:42 AM
--- NOTE | 2017-09-22 08:13 | Anesthesiology Progress Note ---
Anesthesia Post Op Note Date & Time Sep 22, 2017 at 08:13 Vital Signs Pain Intensity: 2.0 Vital Signs Past 12 Hours Date Time Temp Pulse Resp B/P (MAP) Pulse Ox O2 Delivery O2 Flow Rate FiO2 09/22/17 07:26 Nasal Cannula 2.0 09/22/17 04:17 36.8 60 17 145/72 (96) 96 Nasal Cannula 2.0 09/21/17 23:57 37.7 81 18 168/69 (102) 93 Nasal Cannula 2.0 09/21/17 23:45 90 Nasal Cannula 2.0 09/21/17 21:00 74 132/68 (89) 90 Room Air 09/21/17 20:14 95 Nasal Cannula 1.5 Notes Mental Status: alert / awake / arousable, participated in evaluation Pt Amnestic to Procedure: Yes Nausea / Vomiting: adequately controlled Pain: adequately controlled Airway Patency, RR, SpO2: stable & adequate BP & HR: stable & adequate Hydration State: stable & adequate Anesthetic Complications: no major complications apparent
[2017-09-22] MEDS: DOCUSATE SODIUM 100 MG CAP PO SCH ×2 (08:28→21:06)
[2017-09-22] MEDS: SERTRALINE HCL 50 MG TAB PO SCH (08:28)
[2017-09-22] MEDS: CYANOCOBALAMIN 500 MCG TAB (VIT B-12) PO SCH (08:28)
[2017-09-22] MEDS: ACETAMINOPHEN 325 MG TAB PO SCH ×3 (08:28→20:10)
[2017-09-22] MEDS: MAGNESIUM OXIDE 400 MG TAB PO SCH ×2 (08:29→21:06)
[2017-09-22] MEDS: INSULIN GLARGINE SOLOSTAR 100 UNITS/ML 3 ML PEN SC SCH ×2 (08:42→21:10)
[2017-09-22] MEDS ORDERED: CALCITRIOL 0.25 MCG CAP PO SCH (09:00)
--- NOTE | 2017-09-22 10:00 | Clinical Documentation Query ---
MELANIA Yin : CLINICAL DOCUMENTATION QUERY QUERY 2 OF 2 Patient is an 87 year old female who underwent "Robot-assisted thoracoscopic surgery with takedown of right adhesions andexcision of portion of right middle lobe and pericardial fat and lymph node biopsies." Postoperative diagnosis was "apparent inflammatory process medial right middle lobe." As clinically able, please convert this into a suspected medical diagnosis as an "inflammatory process" cannot be indexed and therefore coded for DRG assignment by the coding professional. Thank you. In your clinical opinion is this patient being managed for: ( x) Benign lung mass ( ) Not Agree ( ) Other explanation of clinical findings (Please Explain) ( ) Unable to determine (Please Define) ( ) Need to Discuss The medical record reflects the following clinical findings, treatment, and risk factors. Clinical Indicators: As above Treatment: As above QUERY 2 OF 2 Urine culture demonstrated gram negative bacilli. Patient is being treated with Septra DS. No documentation of UTI/Possible UTI exists. As appropriate, consider documentation of this condition as suggested below. Thank you. In your clinical opinion is this patient being managed for: ( ) Urinary tract infection ( ) Not Agree ( ) Other explanation of clinical findings (Please Explain) ( ) Unable to determine (Please Define) ( ) Need to Discuss The medical record reflects the following clinical findings, treatment, and risk factors. Clinical Indicators: As above Treatment: Septra DS Risk Factors: Age, gender Please clarify and document your clinical opinion in the progress notes and discharge summary. Terms such as "probable", "suspected", "likely", "questionable", "possible", or "still to be ruled out" are acceptable. IF IN AGREEMENT, YOU MUST DOCUMENT ABOVE DIAGNOSTIC STATEMENT IN DAILY PROGRESS NOTES AND DISCHARGE SUMMARY. This document is not part of the patient's record. Thank You, Leonardo Bliss, RN [phone]
[2017-09-22] MEDS: ENOXAPARIN 40 MG/0.4 ML SYR SQ SCH (10:13)
--- NOTE | 2017-09-22 11:31 | Pharmacy Progress Note ---
Pharmacy Glycemic Short Note 2 Date of Service Sep 22, 2017. Outpatient Anti-diabetic Regimen: * Lantus 20 units BID * Novolog SSI TIDM * 13 units BSG <120; 14 units BSG 121-150; 15 units BSG 151-180; 16 units >181 * A1c = 7.8 % (08/14/17) ASSESSMENT: 09/22/17: * BSGs slightly elevated today, thus far. Fasting BSG reasonable (154 mg/dL). * May need to adjust Novolog parameters if hyperglycemia is not corrected with current order. * Will re-evaluate tomorrow 09/21/17 * 87 yo female admitted post-op day #0 for right middle lobe resection * Hyperglycemic following surgery (314), fasting this AM 173 * Patient outpatient receives total daily dose minimum of 76 units daily PLAN FOR INPATIENT GLYCEMIC CONTROL: * Basal insulin with LANTUS 20 units SQ BID * Correctional Insulin with NOVOLOG / REGULAR per scale ACHS or Q6hrs while NPO * Goal Range: Low 110 mg/dL - High 150 mg/dL * Correction Factor: 15 mg/dL/unit * Nutritional / Prandial insulin per carb ratio of 1 unit per 5 grams CHO consumed PLAN FOR DISCHARGE: * Recent A1c (7.8%) indicates adequate glycemic control as an outpt, for an 87yo with multiple comorbidities. * Anticipate that patient may go home on current outpt regimen, as long as pt does not report having episodes of hypoglycemia at home. * Please note that the plan above was derived based on current level of insulin resistance and hospital stress. These recommendations are appropriate for inpatient admission only. Plan of care upon discharge will need to be reassessed to avoid potential outpatient hypo/hyperglycemia. Thank you.
--- NOTE | 2017-09-22 13:47 | DIAGNOSTIC IMAGING REPORT ---
CHEST ONE VIEW PORTABLE HISTORY: Right chest tube removal COMPARISON: Chest 09/22/2017. FINDINGS: The right-sided chest tube has been removed. No definite pneumothorax. Mild elevation the right hemidiaphragm. A 4.5 cm right medial lung base masslike opacity is again noted. There is slight improvement in the right basilar densities. Mild diffuse interstitial thickening and cardiomegaly persist. IMPRESSION: 1. Status post right chest tube removal. No definite pneumothorax. 2. Right medial lung base mass like opacity persists. 3. Cardiomegaly and diffuse interstitial thickening is again noted. Electronically signed by: Deep Obando M.D. 09/22/2017 1:45 PM Dictated Date/Time: 09/22/2017 1:43 PM
--- NOTE | 2017-09-22 14:24 | SURGERY PROGRESS NOTE ---
DATE: 09/22/2017 Ms. Hsu was seen today. She looks great. Her chest tube is out. She is on room air. The problem is, this patient lives alone. She is 87 years of age. We had a long talk about this and there is no one to stay with her tonight. Be as it may, given her age, I want to keep her another night as it is. If she is stable tomorrow, I may consider a discharge. At this point, I want her to continue to ambulate. Her pain control is quite good. She feels better with the tube out. Her x-ray looked good.
[2017-09-22] MEDS: LEVOTHYROXINE 125 MCG TAB PO SCH (21:06)
[2017-09-22] MEDS: METOPROLOL SUCC 25MG EXT REL TAB PO SCH (21:07)
[2017-09-23] MEDS: ACETAMINOPHEN 325 MG TAB PO SCH ×2 (01:51→09:04)
[2017-09-23 06:26] LABS: HEMATOCRIT 36.5 % (37-47); HEMOGLOBIN 11.4 g/dL (12.0-16.0); MEAN CELL VOLUME 91.7 fL (80-100); MEAN CORPUSCULAR HEMOGLOBIN 28.6 pg (25-34); MEAN CORPUSCULAR HGB CONC 31.2 g/dl (32-36); MEAN PLATELET VOLUME 9.8 fL (7.4-10.4); PLATELET COUNT 174 K/uL (130-400); RED CELL DISTRIBUTION WIDTH CV 16.6 % (11.5-14.5); RED CELL DISTRIBUTION WIDTH SD 56.1 fL (36.4-46.3); WHITE BLOOD COUNT 10.46 K/uL (4.8-10.8)
[2017-09-23 07:00] LABS: CREATININE 1.79 mg/dl (0.60-1.20)
[2017-09-23 08:01] VITALS: BP 136/68; PULSE 68; TEMP 36.6; O2SAT 96
[2017-09-23] MEDS ORDERED: SULF-302 PO (08:44)
[2017-09-23] MEDS ORDERED: INSULIN GLARGINE SOLOSTAR 100 UNITS/ML 3 ML PEN SC SCH (09:00)
[2017-09-23] MEDS: MAGNESIUM OXIDE 400 MG TAB PO SCH (09:02)
[2017-09-23] MEDS: CYANOCOBALAMIN 500 MCG TAB (VIT B-12) PO SCH (09:03)
[2017-09-23] MEDS: DOCUSATE SODIUM 100 MG CAP PO SCH (09:03)
[2017-09-23] MEDS: SERTRALINE HCL 50 MG TAB PO SCH (09:03)
[2017-09-23] MEDS: SULFAMETHOXAZOLE/TRIMETHOPRIM DS 800/160MG TAB PO SCH (09:04)
[2017-09-23] MEDS: ENOXAPARIN 40 MG/0.4 ML SYR SQ SCH (09:05)
[2017-09-23] MEDS: INSULIN ASPART 100 UNITS/ML 3 ML PEN SC SCH (09:10)
[2017-09-23 09:49] VITALS: BP 136/68; PULSE 68; TEMP 36.6; O2SAT 96
--- NOTE | 2017-09-23 12:15 | DISCHARGE SUMMARY ---
DISCHARGE DIAGNOSES: 1. Inflammatory mass, right middle lobe. 2. Urinary tract infection. 3. Renal insufficiency. HOSPITAL COURSE: Felicita Hsu is a delightful 87-year-old female with multiple issues who had a mass in her left tonsil, underwent a tonsillectomy by Dr. Tony Haro and this turned out to be reactive lymphoid tissue. She also had a hypermetabolic mass in her right middle lobe. We were concerned about this. I presented her at our multidisciplinary cancer conference and we elected to proceed with a resection of this. We were quite concerned with its appearance; however, this lymphoid reactive process in her tonsil was odd and I felt that this mass may well represent an inflammatory reaction. On 09/21/2017, the patient underwent a robot-assisted right thoracoscopy and I wedged out a good portion of the middle lobe. I did not take out the entire mass because it would necessitate taking a part of the upper lobe. I resected a large segment, sent it for culture as well as for the frozen section and Dr. Shahab Cox evaluated this and felt that this represented an inflammatory reaction does and saw no signs of infection. However, at the time of surgery, we put a Serna and her urine appeared to be cloudy and we sent off for a urinalysis and we sent off for urine culture. This came back as having Klebsiella oxytoca and there were multiple antibiotics, which were resistant to including penicillin and cephalosporin; however, it was sensitive to Septra and we put her on that the day of surgery. Her symptoms improved. We had a Serna out the night of surgery and she said in retrospect now, she was still leaking some urine; however, she was much more continent, was able to get to the bathroom and urinate better even though she still had some leakage. She does wear depends. She had no fevers and no elevation of her white count. On the date of discharge, her white count was 10,460, hemoglobin 11.4. Final pathology is still pending; however, we did culture the tissue and there is no evidence of any infection thus far. We pulled her chest tube out on postop day 1. The patient was ambulating in the hallway and got off of oxygen. She still dropped her sats into the high 80s when she ambulated; however, she looked very good. On the morning of surgery, a bit concerned because her creatinine had jumped to 1.79. However, she has had problems with renal insufficiency in the past and was 1.42 on preadmission testing. As she was now making urine and felt better, I elected to proceed with discharge at her request as she stated she simply cannot sleep in the hospital. She was ambulating in the hallway. She is on room air and tolerating a regular diet. She had very little pain, was only taking Tylenol with this. Her incisions were clean. Her x-ray looked quite good after we pulled the chest tube. I am going to discharge her home now, but I am going to see her back in 48-72 hours. We will repeat her blood work and her chest x-ray. I am going to send her home on Septra and Tylenol for pain. All in all, I was quite pleased with this 87-year-old response to this rather major surgery.
[2017-09-24] MEDS ORDERED: SULFAMETHOXAZOLE/TRIMETHOPRIM DS 800/160MG TAB PO SCH (09:00)
--- NOTE | 2017-09-26 17:54 | EDITING REQUIRED CODING QUERY ---
PATHOLOGY To promote full compliance with coding requirements relating to patient care, physician participation is requested in all cases of associate teacher uncertainty. Please assist us with the question(s) below: Dr. Brown, While reviewing the pathology report, I noticed the finding regarding the pericardial fat. Could you please review the path report and if relevant, please provide an appropriate diagnosis for this finding? 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
== END 2017-09-23 11:02 | disposition home or self-care (01) | DRG 164 ==
LOC: C.ACU 05:20 → C.MSN 10:34 → ENRESERV 11:03
PROVIDERS: ADMIT Surgery; ATTEND Surgery
PROC: 07B74ZX Excision of Thorax Lymphatic, Percutaneous Endoscopic Approach, Diagnostic (ICD-10-PCS; principal; 2017-09-21 07:30)
PROC: 8E0W4CZ Robotic Assisted Procedure of Trunk Region, Percutaneous Endoscopic Approach (ICD-10-PCS; principal; 2017-09-21 07:30)
PROC: 02BN4ZX Excision of Pericardium, Percutaneous Endoscopic Approach, Diagnostic (ICD-10-PCS; principal; 2017-09-21 07:30)
PROC: 0BBD4ZX Excision of Right Middle Lung Lobe, Percutaneous Endoscopic Approach, Diagnostic (ICD-10-PCS; principal; 2017-09-21 07:30)
DX: R91.8 Other nonspecific abnormal finding of lung field (principal); N39.0 Urinary tract infection, site not specified; N18.4 Chronic kidney disease, stage 4 (severe); N25.81 Secondary hyperparathyroidism of renal origin; Z68.41 Body mass index [BMI] 40.0-44.9, adult; C79.89 Secondary malignant neoplasm of other specified sites; B96.89 Other specified bacterial agents as the cause of diseases classified elsewhere; N28.9 Disorder of kidney and ureter, unspecified; J44.9 Chronic obstructive pulmonary disease, unspecified; I12.9 Hypertensive chronic kidney disease with stage 1 through stage 4 chronic kidney disease, or unspecified chronic kidney disease; E11.22 Type 2 diabetes mellitus with diabetic chronic kidney disease; E03.9 Hypothyroidism, unspecified; K74.60 Unspecified cirrhosis of liver; F32.9 Major depressive disorder, single episode, unspecified; E66.9 Obesity, unspecified; Z16.24 Resistance to multiple antibiotics; Z16.11 Resistance to penicillins; Z16.19 Resistance to other specified beta lactam antibiotics; Z85.038 Personal history of other malignant neoplasm of large intestine; Z96.659 Presence of unspecified artificial knee joint; Z87.891 Personal history of nicotine dependence; Z79.4 Long term (current) use of insulin; Z79.899 Other long term (current) drug therapy; Z88.6 Allergy status to analgesic agent

== ENCOUNTER → 2017-09-26 | Outpatient (CLI) | payer OTHER ==
[~2017-09-26] MED LIST changes: -LACTATED RINGER'S 1000ML 1,000 ML IV SCH; +SULF-302 PO
--- NOTE | 2017-09-26 11:38 | DIAGNOSTIC IMAGING REPORT ---
CHEST 2 VIEWS ROUTINE CLINICAL HISTORY: Lung nodule. Status post right middle lobe wedge resection September 21, 2017. COMPARISON STUDY: Chest radiograph September 22, 2017. FINDINGS: There is no pneumothorax. A small right pleural effusion has increased in size since exam of September 22, 2017. A right infrahilar masslike opacity persists. There has been interval development of a 2.7 cm elliptical right lower lung opacity. There is pulmonary vascular congestion without overt edema. Cardiomegaly is unchanged. IMPRESSION: 1. No pneumothorax. 2. Mild increase in size of a small right pleural effusion. 3. Persistent right infrahilar mass-like opacity. 4. Interval development of an elliptical 2.7 cm right lower lung nodular opacity which favors fissural fluid. Electronically signed by: Sanjay Carr M.D. 09/26/2017 11:37 AM Dictated Date/Time: 09/26/2017 11:32 AM
[2017-09-26 12:25] LABS: ALBUMIN 2.7 gm/dl (3.4-5.0); BLOOD UREA NITROGEN 23 mg/dl (7-18); CALCIUM 8.9 mg/dl (8.5-10.1); CARBON DIOXIDE 24 mmol/L (21-32); CREATININE 1.51 mg/dl (0.60-1.20); GLUCOSE 238 mg/dl (70-99); POTASSIUM 4.5 mmol/L (3.5-5.1); SODIUM 133 mmol/L (136-145)
[2017-09-26 12:26] LABS: PHOSPHORUS 2.6 mg/dl (2.5-4.9)
== END | disposition home or self-care (01) ==
LOC: C.RAD1850 10:29
PROVIDERS: ATTEND Surgery
DX: R91.1 Solitary pulmonary nodule (principal); N28.9 Disorder of kidney and ureter, unspecified

== ENCOUNTER → 2017-10-10 | Outpatient (CLI) | payer OTHER ==
--- NOTE | 2017-10-10 10:50 | DIAGNOSTIC IMAGING REPORT ---
CHEST 2 VIEWS ROUTINE HISTORY: 87 years-old Female R91.8 Lung [id number] follow-up study in a patient with right lung mass COMPARISON: Chest radiograph 09/26/2017, PET CT 07/10/2017 TECHNIQUE: PA and lateral views of the chest FINDINGS: Cardiac silhouette is again enlarged. Atherosclerosis of the aorta. No pneumothorax. Small right pleural effusion. Persistent right infrahilar opacity. 1.9 cm ill-defined opacity of the lateral right lung base appears less apparent than comparison study possibly reflecting fluid within the minor fissure. Linear subsegmental left basilar opacities favor atelectasis. The bones appear grossly intact. Degenerative changes of the shoulders and spine. Remote right-sided rib fractures. IMPRESSION: 1. Persistent right infrahilar masslike opacity appears unchanged from comparison. 2. Small right pleural effusion is unchanged. 3. Cardiomegaly without overt pulmonary edema. The above report was generated using voice recognition software. It may contain grammatical, syntax or spelling errors. Electronically signed by: Chi Gutierrez M.D. 10/10/2017 10:49 AM Dictated Date/Time: 10/10/2017 10:44 AM
== END | disposition home or self-care (01) ==
LOC: C.RAD1850 10:01
PROVIDERS: ATTEND Physician Assistant
DX: R91.8 Other nonspecific abnormal finding of lung field (principal); J90 Pleural effusion, not elsewhere classified; I51.7 Cardiomegaly

== ENCOUNTER 2018-05-28 21:30 | Inpatient (IN) ==
[2018-05-28 22:24] LABS: INR 1.1 (0.9-1.1); Partial Thromboplastin Ratio 1.1; Partial Thromboplastin Time 27.6 Seconds (21.0-31.0); Prothrombin Time 11.2 Seconds (9.0-12.0)
[2018-05-28 22:35] LABS: Anisocytosis Present; Basophils # (auto) 0.01 K/uL (0-0.2); Basophils % (auto) 0.1 %; Eosinophils # (auto) 0.19 K/uL (0-0.5); Eosinophils % (auto) 2.2 %; Hematocrit (blood only) 41.3 % (37-47); Hemoglobin 12.3 g/dL (12.0-16.0); Hypochromasia Present; Immature Granulocytes # (auto) 0.04 K/uL (0.00-0.02); Immature Granulocytes % (auto) 0.5 %; Lymphocytes # (auto) 1.16 K/uL (1.2-3.4); Lymphocytes % (auto) 13.4 %; Mean Corpuscular Hgb Conc 29.8 g/dL (32-36); Mean Corpuscular Volume 87.5 fL (80-100); Mean Platelet Volume 9.5 fL (7.4-10.4); Monocytes # (auto) 0.62 K/uL (0.11-0.59); Monocytes % (auto) 7.2 %; Neutrophils # (auto) 6.65 K/uL (1.4-6.5); Neutrophils % (auto) 76.6 %; Platelet Count 272 K/uL (130-400); RDW Coefficient of Variation 20.9 % (11.5-14.5); Red Blood Count 4.72 M/uL (4.2-5.4); White Blood Count 8.67 K/uL (4.8-10.8)
[2018-05-28 22:37] LABS: Alanine Aminotransferase 19 U/L (12-78); Albumin Level 2.5 gm/dl (3.4-5.0); Aspartate Aminotransferase 12 U/L (15-37); BUN Creatinine Ratio 30.4 (10-20); Blood Urea Nitrogen 35 mg/dl (7-18); Calcium 9.1 mg/dl (8.5-10.1); Carbon Dioxide 30 mmol/L (21-32); Chloride 101 mmol/L (98-107); Creatinine Clr Calc Pharmacy 41.4 ml/min; Est GFR (African American) 50.4; Est GFR (Non-African American) 43.5; Glucose 123 mg/dl (70-99); Magnesium 2.3 mg/dl (1.8-2.4); Potassium 4.5 mmol/L (3.5-5.1); Sodium 137 mmol/L (136-145)
[2018-05-28 22:42] LABS: Albumin Globulin Ratio 0.5 (0.9-2); Alkaline Phosphatase 160 U/L (45-117); Bilirubin,Total 0.3 mg/dl (0.1-1); Creatine Kinase 25 U/L (26-192); Globulin 5.5 gm/dl (2.5-4.0); Troponin I < 0.015 ng/ml (0-0.045)
[2018-05-29 00:28] LABS: HCO3 ABG 28 mmol/L (19-24); PCO2 ABG 68 mmHg (35-46); PO2 ABG 201 mm/Hg (80-95); pH ABG 7.23 (7.35-7.45)
[2018-05-29 00:32] LABS: Allen Test Pos (Pos)
[2018-05-30 07:34] LABS: Creatinine Clr Calc Pharmacy 28.6 ml/min; Est GFR (African American) 32.2; Est GFR (Non-African American) 27.8
[2018-05-31 00:28] LABS: Appearance Urine Cloudy (Clear); Bacteria Urine Automated Negative (Negative); Bilirubin Urine Negative (Negative); Color Urine Yellow; Glucose Urine UA Negative (Negative); Ketones Urine Negative (Negative); Leukocyte Esterase Urine 2+ (Negative); Nitrite Urine Negative (Negative); Protein Urine Trace (Negative); Specific Gravity Urine 1.022 (1.000-1.030); Urobilinogen Urine Negative (Negative); WBC Urine Automated >30 /hpf (0-5)
[2018-05-31 07:53] LABS: Creatinine Clr Calc Pharmacy 23.8 ml/min; Est GFR (African American) 26.8; Est GFR (Non-African American) 23.2
[2018-06-01 06:34] LABS: Creatinine Clr Calc Pharmacy 24.1 ml/min; Est GFR (African American) 27.2; Est GFR (Non-African American) 23.5
[2018-06-01 07:14] LABS: Lyme Ab IgM w/WB Rflx Negative (Negative)
[2018-06-01 07:50] LABS: Lyme Ab IgG w/WB Rflx Positive (Negative)
[2018-06-01 09:02] LABS: BUN Creatinine Ratio 30.4 (10-20); Calcium 8.4 mg/dl (8.5-10.1); Creatinine Clr Calc Pharmacy 24.3 ml/min; Est GFR (African American) 27.5; Est GFR (Non-African American) 23.8; Potassium 4.5 mmol/L (3.5-5.1)
[2018-06-02 09:17] LABS: BUN Creatinine Ratio 27.4 (10-20); Calcium 8.1 mg/dl (8.5-10.1); Creatinine Clr Calc Pharmacy 23.6 ml/min; Est GFR (African American) 26.3; Est GFR (Non-African American) 22.7; Magnesium 2.1 mg/dl (1.8-2.4); Potassium 3.8 mmol/L (3.5-5.1)
[2018-06-02 09:28] LABS: Eosinophils # (auto) 0.01 K/uL (0-0.5); Eosinophils % (auto) 0.2 %; Hematocrit (blood only) 37.8 % (37-47); Lymphocytes # (auto) 0.45 K/uL (1.2-3.4); Lymphocytes % (auto) 8.4 %; Mean Corpuscular Hgb Conc 29.1 g/dL (32-36); Mean Corpuscular Volume 88.3 fL (80-100); Mean Platelet Volume 9.2 fL (7.4-10.4); Monocytes # (auto) 0.24 K/uL (0.11-0.59); Monocytes % (auto) 4.5 %; Neutrophils # (auto) 4.66 K/uL (1.4-6.5); Neutrophils % (auto) 86.9 %; Platelet Count 135 K/uL (130-400); RDW Coefficient of Variation 19.7 % (11.5-14.5); RDW Standard Deviation 63.9 fL (36.4-46.3); Red Blood Count 4.28 M/uL (4.2-5.4); White Blood Count 5.36 K/uL (4.8-10.8)
[2018-06-03 07:16] LABS: BUN Creatinine Ratio 31.4 (10-20); Calcium 8.3 mg/dl (8.5-10.1); Creatinine Clr Calc Pharmacy 27.1 ml/min; Est GFR (African American) 31.8; Est GFR (Non-African American) 27.4; Potassium 3.7 mmol/L (3.5-5.1)
[2018-06-04 06:28] LABS: BUN Creatinine Ratio 33.5 (10-20); Calcium 8.3 mg/dl (8.5-10.1); Creatinine Clr Calc Pharmacy 30.1 ml/min; Est GFR (African American) 35.9; Potassium 3.8 mmol/L (3.5-5.1)
[2018-06-05 06:41] LABS: BUN Creatinine Ratio 42.1 (10-20); Calcium 8.7 mg/dl (8.5-10.1); Creatinine Clr Calc Pharmacy 42.5 ml/min; Est GFR (African American) 54.4; Potassium 3.3 mmol/L (3.5-5.1)
[2018-06-05 07:24] LABS: 18KDIGG Band NONREACTIVE (NONREACTIVE); 23KDIGG Band NONREACTIVE (NONREACTIVE); 23KDIGM Band NONREACTIVE (NONREACTIVE); 28KDIGG Band NONREACTIVE (NONREACTIVE); 30KDIGG Band NONREACTIVE (NONREACTIVE); 39KDIGG Band NONREACTIVE (NONREACTIVE); 39KDIGM Band NONREACTIVE (NONREACTIVE); 41KDIGG Band REACTIVE (NONREACTIVE); 41KDIGM Band NONREACTIVE (NONREACTIVE); 45KDIGG Band REACTIVE (NONREACTIVE); 58KDIGG Band NONREACTIVE (NONREACTIVE); 66KDIGG Band NONREACTIVE (NONREACTIVE); 93KDIGG Band NONREACTIVE (NONREACTIVE); Lyme Antibodies, WB IgG NEGATIVE (NEGATIVE); Lyme Antibodies, WB IgM NEGATIVE (NEGATIVE)
[2018-06-06 07:03] LABS: BUN Creatinine Ratio 35.8 (10-20); Calcium 8.8 mg/dl (8.5-10.1); Est GFR (African American) 52.6; Est GFR (Non-African American) 45.4
[2018-06-06 09:45] LABS: Estimated Average Glucose 166 mg/dl
[2018-06-06 17:58] LABS: Base Excess VBG 16.1 mEq/L; Oxygen Saturation VBG 87.8 %; pH VBG 7.38 (7.36-7.41)
[2018-06-06 18:19] LABS: BUN Creatinine Ratio 29.4 (10-20); Calcium 8.8 mg/dl (8.5-10.1); Creatinine Clr Calc Pharmacy 20.4 ml/min; Est GFR (African American) 41.1; Est GFR (Non-African American) 35.5; Magnesium 2.2 mg/dl (1.8-2.4); Potassium 4.3 mmol/L (3.5-5.1)
[2018-06-06 18:20] LABS: Troponin I 0.03 ng/ml (0-0.045)
[2018-06-07 07:08] LABS: BUN Creatinine Ratio 34.1 (10-20); Calcium 8.9 mg/dl (8.5-10.1); Creatinine Clr Calc Pharmacy 42.3 ml/min; Est GFR (African American) 54.4; Potassium 4.6 mmol/L (3.5-5.1)
[2018-06-08 07:31] LABS: BUN Creatinine Ratio 35.7 (10-20); Creatinine Clr Calc Pharmacy 36.5 ml/min; Est GFR (African American) 45.5; Est GFR (Non-African American) 39.3; Magnesium 2.4 mg/dl (1.8-2.4); Potassium 4.1 mmol/L (3.5-5.1)
[2018-06-09 07:36] LABS: Hematocrit (blood only) 39.7 % (37-47); Hemoglobin 11.3 g/dL (12.0-16.0); Mean Corpuscular Hgb Conc 28.5 g/dL (32-36); Mean Corpuscular Volume 91.5 fL (80-100); Mean Platelet Volume 11.3 fL (7.4-10.4); Platelet Count 202 K/uL (130-400); RDW Standard Deviation 66.2 fL (36.4-46.3); Red Blood Count 4.34 M/uL (4.2-5.4); White Blood Count 10.99 K/uL (4.8-10.8)
[2018-06-09 07:48] LABS: Anisocytosis Present; Basophils # (auto) 0.01 K/uL (0-0.2); Basophils % (auto) 0.1 %; Eosinophils # (auto) 0.16 K/uL (0-0.5); Eosinophils % (auto) 1.5 %; Immature Granulocytes # (auto) 0.05 K/uL (0.00-0.02); Immature Granulocytes % (auto) 0.5 %; Lymphocytes # (auto) 1.28 K/uL (1.2-3.4); Lymphocytes % (auto) 11.6 %; Monocytes # (auto) 1.15 K/uL (0.11-0.59); Monocytes % (auto) 10.5 %; Neutrophils # (auto) 8.34 K/uL (1.4-6.5); Neutrophils % (auto) 75.8 %; Stomatocytes 1+
[2018-06-09 07:51] LABS: Calcium 9.2 mg/dl (8.5-10.1); Creatinine Clr Calc Pharmacy 42.2 ml/min; Est GFR (African American) 54.4; Magnesium 2.4 mg/dl (1.8-2.4); Potassium 3.7 mmol/L (3.5-5.1)
[2018-06-10 06:39] LABS: BUN Creatinine Ratio 42.2 (10-20); Calcium 8.9 mg/dl (8.5-10.1); Creatinine Clr Calc Pharmacy 39.5 ml/min; Est GFR (African American) 50.4; Est GFR (Non-African American) 43.5; Magnesium 2.3 mg/dl (1.8-2.4); Potassium 4.3 mmol/L (3.5-5.1)
[2018-06-10 18:48] LABS: HCO3 ABG 47 mmol/L (19-24); Oxygen Saturation ABG 78.3 % (90-95); PCO2 ABG 73 mmHg (35-46); PO2 ABG 42 mm/Hg (80-95); pH ABG 7.43 (7.35-7.45)
[2018-06-10 18:51] LABS: Allen Test Pos (Pos)
[2018-06-11 06:41] LABS: BUN Creatinine Ratio 33.1 (10-20); Calcium 8.8 mg/dl (8.5-10.1); Creatinine Clr Calc Pharmacy 32.7 ml/min; Est GFR (Non-African American) 34.5; Potassium 4.2 mmol/L (3.5-5.1)
[2018-06-12 07:22] LABS: BUN Creatinine Ratio 40.4 (10-20); Calcium 9.1 mg/dl (8.5-10.1); Creatinine Clr Calc Pharmacy 30.7 ml/min; Est GFR (African American) 37.7; Est GFR (Non-African American) 32.5; Magnesium 2.5 mg/dl (1.8-2.4); Potassium 3.7 mmol/L (3.5-5.1)
[2018-06-13 10:54] LABS: BUN Creatinine Ratio 42.8 (10-20); Calcium 8.8 mg/dl (8.5-10.1); Creatinine Clr Calc Pharmacy 25.5 ml/min; Est GFR (Non-African American) 25.9; Magnesium 2.6 mg/dl (1.8-2.4); Potassium 3.7 mmol/L (3.5-5.1)
[2018-06-13 17:12] LABS: Base Excess VBG 14.2 mEq/L; Oxygen Saturation VBG 68.7 %; pH VBG 7.28 (7.36-7.41)
[2018-06-13 21:35] LABS: Base Excess VBG 12.9 mEq/L; Oxygen Saturation VBG 73.9 %; pH VBG 7.3 (7.36-7.41)
[2018-06-14 08:40] LABS: BUN Creatinine Ratio 52.8 (10-20); Calcium 8.9 mg/dl (8.5-10.1); Creatinine Clr Calc Pharmacy 33.6 ml/min; Est GFR (African American) 42.6; Est GFR (Non-African American) 36.8; Potassium 4.2 mmol/L (3.5-5.1)
[2018-06-15 09:02] LABS: Hematocrit (blood only) 41.9 % (37-47); Hemoglobin 12.1 g/dL (12.0-16.0); Mean Corpuscular Hgb Conc 28.9 g/dL (32-36); Mean Corpuscular Volume 93.3 fL (80-100); Mean Platelet Volume 10.5 fL (7.4-10.4); Platelet Count 183 K/uL (130-400); RDW Coefficient of Variation 20.3 % (11.5-14.5); RDW Standard Deviation 70.4 fL (36.4-46.3); Red Blood Count 4.49 M/uL (4.2-5.4); White Blood Count 11.42 K/uL (4.8-10.8)
[2018-06-15 09:33] LABS: BUN Creatinine Ratio 55.2 (10-20); Calcium 9.2 mg/dl (8.5-10.1); Creatinine Clr Calc Pharmacy 38.4 ml/min; Est GFR (African American) 49.9; Potassium 4.5 mmol/L (3.5-5.1)
== END 2018-06-15 13:45 ==
LOC: ED 21:30 → SUATTDRO 05-29 02:08 → 2N 05-29 02:08 → 2S 05-30 15:16 → 4E 06-04 13:13 → 2S 06-06 17:32 → 4W 06-12 17:53

== ENCOUNTER 2018-06-25 10:16 | Inpatient (IN) ==
[2018-06-25 11:01] LABS: Base Excess VBG 11.9 mEq/L; Oxygen Saturation VBG 76.6 %; pH VBG 7.27 (7.36-7.41)
[2018-06-25 11:11] LABS: Hematocrit (blood only) 43.5 % (37-47); Hemoglobin 12.3 g/dL (12.0-16.0); Mean Corpuscular Hgb Conc 28.3 g/dL (32-36); Mean Corpuscular Volume 95.4 fL (80-100); Mean Platelet Volume 10.9 fL (7.4-10.4); Platelet Count 142 K/uL (130-400); RDW Coefficient of Variation 20.2 % (11.5-14.5); RDW Standard Deviation 70.4 fL (36.4-46.3); Red Blood Count 4.56 M/uL (4.2-5.4); White Blood Count 7.82 K/uL (4.8-10.8)
--- NOTE | 2018-06-25 11:17 | XRay Report ---
XR chest 1V portable CLINICAL HISTORY: Shortness of breath. COMPARISON STUDY: Chest radiograph June 10, 2018. FINDINGS: Elevation the right hemidiaphragm is noted. There is extensive right mid and lower lung air space opacity which has progressed since exam of June 10, 2018. Diffuse interstitial thickening has increased. Cardiomegaly is unchanged. Left lower lung opacity has slightly increased. There is no pn eumothorax. Several right-sided rib fractures are noted. IMPRESSION: 1. Increase in bibasilar opacities, right greater left, with suspected right middle and lower lobe pn eumonia/atelectasis. An underlying mass cannot be excluded. Radiographic follow-up is recommended. 2. Increase in interstitial thickening suggestive of pulmonary edema. Electronically signed by: Sanjay Carr M.D. 06/25/2018 11:16 AM
[2018-06-25 11:29] LABS: Anisocytosis Present; Basophils # (auto) 0.01 K/uL (0-0.2); Basophils % (auto) 0.1 %; Eosinophils # (auto) 0.06 K/uL (0-0.5); Eosinophils % (auto) 0.8 %; Immature Granulocytes # (auto) 0.02 K/uL (0.00-0.02); Immature Granulocytes % (auto) 0.3 %; Lymphocytes # (auto) 0.36 K/uL (1.2-3.4); Lymphocytes % (auto) 4.6 %; Monocytes % (auto) 6.4 %; Neutrophils # (auto) 6.87 K/uL (1.4-6.5); Neutrophils % (auto) 87.8 %; Stomatocytes 1+
[2018-06-25 11:50] LABS: INR 1.1 (0.9-1.1); Partial Thromboplastin Ratio 1.1
[2018-06-25 12:00] LABS: Alanine Aminotransferase 16 U/L (12-78); Albumin Level 2.3 gm/dl (3.4-5.0); Aspartate Aminotransferase 15 U/L (15-37); Blood Urea Nitrogen 32 mg/dl (7-18); Carbon Dioxide 41 mmol/L (21-32); Chloride 95 mmol/L (98-107); Est GFR (African American) 60.5; Est GFR (Non-African American) 52.2; Glucose 88 mg/dl (70-99); Potassium 4.9 mmol/L (3.5-5.1); Sodium 137 mmol/L (136-145)
[2018-06-25 12:03] LABS: Albumin Globulin Ratio 0.6 (0.9-2); Alkaline Phosphatase 128 U/L (45-117); Bilirubin,Total 0.3 mg/dl (0.2-1); Globulin 4.1 gm/dl (2.5-4.0); NT Pro B Type Natriuretic Pept 716 pg/ml (0-1800); Total Protein 6.4 gm/dl (6.4-8.2); Troponin I 0.036 ng/ml (0-0.045)
--- NOTE | 2018-06-25 13:21 | Emergency Department Note ---
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 The patient denies feeling short of breath and also denies noticing swelling in her legs. The patient states that she has been taking her medications. She does report having a dry cough. Per EMS, the patient was satting in the 70s today when her vitals were taken. EMS states that the patient's sats went up after the patient was placed on CPAP. EMS states that they heard rales this morning at [facility] when examining the patient. The patient was discharged on 06/21/18 with CHF and pulmonary hypertension. She is a DNR. Home Medications Home Medications Medication Instructions Recorded Confirmed Type acetaminophen [Tylenol Arthritis 650 mg PO QID PRN 05/29/18 06/25/18 History Pain] albuterol sulfate [Ventolin HFA] 2 puff INHALATION Q6H PRN 05/29/18 06/25/18 History calcitriol 0.25 mcg PO 3XWK 05/29/18 06/25/18 History ergocalciferol (vitamin D2) 50,000 unit PO WK 05/29/18 06/25/18 History [Vitamin D2] levothyroxine 125 mcg PO DAILY 05/29/18 06/25/18 History sertraline 50 mg PO DAILY 05/29/18 06/25/18 History amlodipine [Norvasc] 5 mg PO QAM #30 tab 06/15/18 06/25/18 Rx furosemide 40 mg PO BID #60 tab 06/15/18 06/25/18 Rx insulin aspart U-100 [Novolog 1 sliding scale dose SUBCUT UD #1 06/15/18 Rx PenFill U-100 Insulin] pen insulin glargine [Lantus Solostar 8 unit SC QPM #1 pen 06/15/18 06/25/18 Rx U-100 Insulin] insulin glargine [Lantus Solostar 20 unit SUBCUT QAM #1 pen 06/15/18 06/25/18 Rx U-100 Insulin] metoprolol succinate 12.5 mg PO DAILY #30 tab 06/15/18 06/25/18 Rx miconazole nitrate [Desenex] 1 applic EXT PRN PRN #45 g 06/15/18 06/25/18 Rx potassium chloride [Klor-Con M20] 20 meq PO DAILY #30 tab 06/15/18 06/25/18 Rx sildenafil (antihypertensive) 20 mg PO TID #90 tab 06/15/18 06/25/18 Rx [Revatio] Allergies Allergy/AdvReac Type Severity Reaction Status Date / Time aspirin AdvReac Mild UPSET Verified 05/29/18 00:50 STOMACH Past Med/Surg History Medical History Chronic kidney disease, stage IV (severe) Lymphedema B12 deficiency Hypothyroidism Diabetes mellitus Hypertension Squamous cell lung cancer Surgical History History of bilateral knee replacement History of cholecystectomy Hx of pneumonectomy RML S/P tonsillectomy Social History marital status: Current Living Situation: Alf 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 and A total of 10 systems reviewed and were otherwise negative Physical Exam Vital Signs Vital Signs - 24 hr 06/25/18 10:34 06/25/18 10:47 06/25/18 11:07 Temperature 36.8 C Temperature Source Oral Sepsis Recent Fever Within 48 Hours No Sepsis Action Taken by Nursing No Action Required Pulse Rate 91 H Pulse Rate [Left] 71 Pulse Rhythm Regular Pulse Strength Normal Respiratory Rate 20 20 Respiratory Effort / Characteristics Non-Labored Spontaneous Non-Labored Spontaneous Spontaneous Respiratory Depth Normal Normal Respiratory Pattern Regular Regular Blood Pressure 159/79 H Blood Pressure [Right Arm] 144/62 H Blood Pressure Mean 105 Blood Pressure Mean [Right Arm] 89 Blood Pressure Position [Right Arm] Lying Pulse Oximetry 93 96 Oxygen Delivery Method Room Air Nasal Cannula Room Air Oxygen Flow Rate 4 Fraction of Inspired Oxygen 06/25/18 11:43 06/25/18 12:32 06/25/18 13:10 Temperature Temperature Source Sepsis Recent Fever Within 48 Hours Sepsis Action Taken by Nursing Pulse Rate 79 Pulse Rate [Left] 71 77 Pulse Rhythm Pulse Strength Respiratory Rate 23 19 20 Respiratory Effort / Characteristics Spontaneous Spontaneous Respiratory Depth Normal Respiratory Pattern Regular Blood Pressure Blood Pressure [Right Arm] 150/58 H 171/62 H Blood Pressure Mean Blood Pressure Mean [Right Arm] 88 98 Blood Pressure Position [Right Arm] Lying Lying Pulse Oximetry 91 94 93 Oxygen Delivery Method BiPAP BiPAP Oxygen Flow Rate Fraction of Inspired Oxygen 40 06/25/18 15:24 06/25/18 17:26 Temperature Temperature Source Sepsis Recent Fever Within 48 Hours Sepsis Action Taken by Nursing Pulse Rate 75 Pulse Rate [Left] Pulse Rhythm Pulse Strength Respiratory Rate 20 Respiratory Effort / Characteristics Non-Labored Spontaneous SOB on Exertion Respiratory Depth Normal Respiratory Pattern Regular Blood Pressure 123/68 Blood Pressure [Right Arm] Blood Pressure Mean Blood Pressure Mean [Right Arm] Blood Pressure Position [Right Arm] Pulse Oximetry 93 Oxygen Delivery Method BiPAP Nasal Cannula Oxygen Flow Rate 4 Fraction of Inspired Oxygen GENERAL: Well appearing, well nourished, NAD, non-toxic. Nasal cannula in place. EYE EXAM: Normal conjunctiva. PERRL, no anisocoria and EOM's grossly intact w/o pain OROPHARYNX: No exudate, posterior pharynx is clear, no tonsillar/uvular deviation or swelling. NECK: Supple, no nuchal rigidity, no adenopathy, non-tender. No signs of meningismus. LUNGS: Mildly decreased breath sounds throughout with associated crackles. Normal chest wall mechanics. HEART: Normal sinus rhythm,systolic ejection murmur. ABDOMEN: Abdomen soft, non-tender, no masses, no rebound or guarding. BACK: No CVA TTP. SKIN: No rashes and no bruising. UPPER EXTREMITIES: Upper extremities are grossly normal. LOWER EXTREMITIES: No pitting edema. No calf pain. Bandages over the bilateral feet. NEURO EXAM: Cranial nerves II-XII grossly intact, normal speech, 5/5 strength throughout, moves all 4 extremities on command w/o issue. Course 1026: Past medical records reviewed. The patient was evaluated in room B12B, and a complete history and physical examination were performed. 1136: I spoke with the patient's family. 1320: I discussed the patient's case with Dr. Gloria Garcia who will evaluate the patient for further management. Consultations Consultation #1: Dr. Gloria Garcia Time: 13:20 Administered Medications Levofloxacin/Dextrose (Levaquin/D5w) 750 mg in 150 mls @ 100 mls/hr IV Q24H ANTONIETA Stop: 07/02/18 14:14 Last Infusion: 06/25/18 16:56 Dose: 0 mls/hr Admin: 06/25/18 15:12 Dose: 100 mls/hr Piperacillin Sod/Tazobactam (Sod 3.375 gm/ Dextrose) 115 mls @ 28.75 mls/hr IV Q8H ANTONIETA Stop: 07/02/18 14:14 Last Admin: 06/25/18 16:43 Dose: 28.8 mls/hr Discontinued Medications Furosemide (Lasix) Confirm Administered Dose 40 mg IV .STK-MED ONE Stop: 06/25/18 14:24 Last Admin: 06/25/18 15:12 Dose: 40 mg Medical Decision Making Medical Records Attestation: I reviewed the patient's medical records. Home Medications Current Medication List: was personally reviewed by me Laboratory Data Attestation: I reviewed the patient's lab results. Result diagrams: 06/25/18 10:41 06/25/18 11:29 Lab Results 06/25/18 06/25/18 06/25/18 Range/Units 10:41 10:41 10:41 WBC 7.82 (4.8-10.8) K/uL RBC 4.56 (4.2-5.4) M/uL Hgb 12.3 (12.0-16.0) g/dL Hct 43.5 (37-47) % MCV 95.4 (80-100) fL MCH 27.0 (25-34) pg MCHC 28.3 L (32-36) g/dL RDW Std Deviation 70.4 H (36.4-46.3) fL RDW Coeff of Pola 20.2 H (11.5-14.5) % Plt Count 142 (130-400) K/uL MPV 10.9 H (7.4-10.4) fL Immature Gran % (Auto) 0.3 % Neut % (Auto) 87.8 % Lymph % (Auto) 4.6 % [place] % (Auto) 6.4 % Eos % (Auto) 0.8 % Baso % (Auto) 0.1 % Immature Gran # (Auto) 0.02 (0.00-0.02) K/uL Neut # (Auto) 6.87 H (1.4-6.5) K/uL Lymph # (Auto) 0.36 L (1.2-3.4) K/uL [place] # (Auto) 0.50 (0.11-0.59) K/uL Eos # (Auto) 0.06 (0-0.5) K/uL Baso # (Auto) 0.01 (0-0.2) K/uL Anisocytosis Present Stomatocytes 1+ PT Cancelled INR Cancelled APTT Cancelled PTT Ratio Cancelled VBG pH (7.36-7.41) VBG pCO2 (38-50) mmHg VBG pO2 mmHg VBG HCO3 mmol/L VBG O2 Saturation % VBG Base Excess mEq/L Barometric Pressure mm/Hg Sodium Cancelled Potassium Cancelled Chloride Cancelled Carbon Dioxide Cancelled Anion Gap Cancelled BUN Cancelled Creatinine Cancelled Est Cr Clr Drug Dosing Cancelled Est GFR ( Amer) Cancelled Est GFR (Non-Af Amer) Cancelled BUN/Creatinine Ratio Cancelled Glucose Cancelled POC Glucose (70-99) Calcium Cancelled Total Bilirubin Cancelled AST Cancelled ALT Cancelled Alkaline Phosphatase Cancelled Ammonia (11-32) umol/L Troponin I Cancelled NT-Pro-B Natriuret Pep Cancelled Total Protein Cancelled Albumin Cancelled Globulin Cancelled Albumin/Globulin Ratio Cancelled 06/25/18 06/25/18 06/25/18 Range/Units 10:41 11:29 11:29 WBC (4.8-10.8) K/uL RBC (4.2-5.4) M/uL Hgb (12.0-16.0) g/dL Hct (37-47) % MCV (80-100) fL MCH (25-34) pg MCHC (32-36) g/dL RDW Std Deviation (36.4-46.3) fL RDW Coeff of Pola (11.5-14.5) % Plt Count (130-400) K/uL MPV (7.4-10.4) fL Immature Gran % (Auto) % Neut % (Auto) % Lymph % (Auto) % [place] % (Auto) % Eos % (Auto) % Baso % (Auto) % Immature Gran # (Auto) (0.00-0.02) K/uL Neut # (Auto) (1.4-6.5) K/uL Lymph # (Auto) (1.2-3.4) K/uL [place] # (Auto) (0.11-0.59) K/uL Eos # (Auto) (0-0.5) K/uL Baso # (Auto) (0-0.2) K/uL Anisocytosis Stomatocytes PT 11.0 INR 1.1 APTT 28.0 PTT Ratio 1.1 VBG pH 7.27 L (7.36-7.41) VBG pCO2 97 H (38-50) mmHg VBG pO2 44 mmHg VBG HCO3 43 mmol/L VBG O2 Saturation 76.6 % VBG Base Excess 11.9 mEq/L Barometric Pressure 738.4 mm/Hg Sodium 137 Potassium 4.9 Chloride 95 L Carbon Dioxide 41 H* Anion Gap 1.0 L BUN 32 H Creatinine 0.98 Est Cr Clr Drug Dosing Not Reportable Est GFR ( Amer) 60.5 Est GFR (Non-Af Amer) 52.2 BUN/Creatinine Ratio 33.0 H Glucose 88 POC Glucose (70-99) Calcium 9.0 Total Bilirubin 0.3 AST 15 ALT 16 Alkaline Phosphatase 128 H Ammonia (11-32) umol/L Troponin I 0.036 NT-Pro-B Natriuret Pep 716 Total Protein 6.4 Albumin 2.3 L Globulin 4.1 H Albumin/Globulin Ratio 0.6 L 06/25/18 06/25/18 06/25/18 Range/Units 14:00 14:59 15:20 WBC (4.8-10.8) K/uL RBC (4.2-5.4) M/uL Hgb (12.0-16.0) g/dL Hct (37-47) % MCV (80-100) fL MCH (25-34) pg MCHC (32-36) g/dL RDW Std Deviation (36.4-46.3) fL RDW Coeff of Pola (11.5-14.5) % Plt Count (130-400) K/uL MPV (7.4-10.4) fL Immature Gran % (Auto) % Neut % (Auto) % Lymph % (Auto) % [place] % (Auto) % Eos % (Auto) % Baso % (Auto) % Immature Gran # (Auto) (0.00-0.02) K/uL Neut # (Auto) (1.4-6.5) K/uL Lymph # (Auto) (1.2-3.4) K/uL [place] # (Auto) (0.11-0.59) K/uL Eos # (Auto) (0-0.5) K/uL Baso # (Auto) (0-0.2) K/uL Anisocytosis Stomatocytes PT INR APTT PTT Ratio VBG pH 7.36 (7.36-7.41) VBG pCO2 75 H (38-50) mmHg VBG pO2 54 mmHg VBG HCO3 41 mmol/L VBG O2 Saturation 88.0 % VBG Base Excess 12.7 mEq/L Barometric Pressure 738.9 mm/Hg Sodium Potassium Chloride Carbon Dioxide Anion Gap BUN Creatinine Est Cr Clr Drug Dosing Est GFR ( Amer) Est GFR (Non-Af Amer) BUN/Creatinine Ratio Glucose POC Glucose 68 L* (70-99) Calcium Total Bilirubin AST ALT Alkaline Phosphatase Ammonia 22.0 (11-32) umol/L Troponin I NT-Pro-B Natriuret Pep Total Protein Albumin Globulin Albumin/Globulin Ratio 06/25/18 Range/Units 16:45 WBC (4.8-10.8) K/uL RBC (4.2-5.4) M/uL Hgb (12.0-16.0) g/dL Hct (37-47) % MCV (80-100) fL MCH (25-34) pg MCHC (32-36) g/dL RDW Std Deviation (36.4-46.3) fL RDW Coeff of Pola (11.5-14.5) % Plt Count (130-400) K/uL MPV (7.4-10.4) fL Immature Gran % (Auto) % Neut % (Auto) % Lymph % (Auto) % [place] % (Auto) % Eos % (Auto) % Baso % (Auto) % Immature Gran # (Auto) (0.00-0.02) K/uL Neut # (Auto) (1.4-6.5) K/uL Lymph # (Auto) (1.2-3.4) K/uL [place] # (Auto) (0.11-0.59) K/uL Eos # (Auto) (0-0.5) K/uL Baso # (Auto) (0-0.2) K/uL Anisocytosis Stomatocytes PT INR APTT PTT Ratio VBG pH (7.36-7.41) VBG pCO2 (38-50) mmHg VBG pO2 mmHg VBG HCO3 mmol/L VBG O2 Saturation % VBG Base Excess mEq/L Barometric Pressure mm/Hg Sodium Potassium Chloride Carbon Dioxide Anion Gap BUN Creatinine Est Cr Clr Drug Dosing Est GFR ( Amer) Est GFR (Non-Af Amer) BUN/Creatinine Ratio Glucose POC Glucose 100 H (70-99) Calcium Total Bilirubin AST ALT Alkaline Phosphatase Ammonia (11-32) umol/L Troponin I NT-Pro-B Natriuret Pep Total Protein Albumin Globulin Albumin/Globulin Ratio Imaging Data Radiologist's Impression: Radiology results as stated below per my review and the radiologist's interpretation: XR chest 1V portable CLINICAL HISTORY: Shortness of breath. COMPARISON STUDY: Chest radiograph June 10, 2018. FINDINGS: Elevation the right hemidiaphragm is noted. There is extensive right mid and lower lung airspace opacity which has progressed since exam of June. Diffuse interstitial thickening has increased. Cardiomegaly is unchanged. Left lower lung opacity has slightly increased. There is no pneumothorax. Several right-sided rib fractures are noted. IMPRESSION: 1. Increase in bibasilar opacities, right greater left, with suspected right middle and lower lobe pneumonia/atelectasis. An underlying mass cannot be excluded. Radiographic follow-up is recommended. 2. Increase in interstitial thickening suggestive of pulmonary edema. Electronically signed by: Sanjay Carr M.D. 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 Differential diagnosis: Etiologies such as infections, reactive airway disease, COPD, pneumonia, pleural effusion, pulmonary edema, ARDS, pneumothorax, CHF, cardiac ischemia, cardiac tamponade, dysrhythmia, anemia, pulmonary embolism, musculoskeletal, gastrointestinal process, as well as others were entertained. Patient was seen and evaluated the bedside. The patient is a resident [facility] and presented here for a brief episode of hypoxia per outpatient provider report. The patient was seen and was not having any acute complaints. The patient does not look significantly volume overloaded. The patient is currently on her baseline oxygen 4 L. I did have a brief discussion with family at the bedside. Patient's blood work was concerning for acute hypercapnia as she had a CO2 greater than 9 7.2. The patient was started on BiPAP. Given the patient's acute respiratory failure and associated elevated CO2 and that she would benefit from further evaluation treatment as an inpatient. Patient had a normal white count and H&H. Bibasilar and opacities to show increase. There is some mild suggestive of pulmonary edema. The patient does take diuretics. Will defer antibiotics as well as diuretics at this time to the inpatient team. Patient has tolerated the BiPAP well. I did speak with the on-call hospitalist who agreed to further evaluate treat the patient. Impression & Plan Hypercapnia, Respiratory failure with hypoxia Critical Care Time I have personally spent greater than 55 minutes of critical care time in direct management of this patient. This includes bedside care, interpretation of diagnostic studies, and testing, discussion with consultants, patient, and family members, and other require inpatient management activities. This 55 minutes is in excess of all separately billable procedures. Critical Care Time: Yes Total Critical Care Time: 55 Discharge Plan Visit Data *Final* Discharge Date/Time: 06/25/18 15:24 Chief Complaint: Respiratory Problems ED Provider: Palomo Medrano Discharge Problem: Hypercapnia, Respiratory failure with hypoxia Patient Disposition: Admitted As Inpatient Discharge Instructions Interventions: ED Discharge Assessment Last Done: 06/25/18 15:24 The scribe's documentation has been prepared under my direction and personally reviewed by me in its entirety. I confirm that the note above accurately reflects all work, treatment, procedures, and medical decision making performed by me.
--- NOTE | 2018-06-25 13:36 | History & Physical Report ---
Date of Service June 25, 2018 Assessment & Plan (1) Acute on chronic respiratory failure with hypoxia and hypercapnia: Patient had similar presentation in late May. During that admission had acute/chronic diastolic CHF, severe pulmonary HTN was found, and progression of her cancer was also seen. She had 15+ liter diuresis during that admission. Today she has decompensated respiratory failure with significant CO2 retention. Radiographically it appears several things could be going on including progression of her cancer and/or recurrent CHF and/or recurrent pneumonia vs development of pleural effusion. She has also been noncompliant with BIPAP at the SNF (she was noncompliant with BIPAP during her previous stay as well) which is contributing to her issues. Will continue her BIPAP. Repeat VBG is pending. Will give lasix 40mg IV x 1 for probable decompensated CHF. Start IV antibiotics to cover for aspiration pneumonia vs gram negative pneumonia vs obstructive pneumonia (zosyn, levaquin). Defer on MRSA coverage unless MRSA screen is positive. No symptoms of the flu but will check it to be complete. I have asked the pt's son to speak with their family and the patient about goals for care in light of her poor prognosis. Will re-involve palliative care. I have also consulted Dr. Villar who knows the patient from her prior stay. Consider repeat chest CT if patient/family wish to continue more aggressive care. If they opt for palliation would defer on repeat imaging. Present on Admission?: Yes (2) Metabolic encephalopathy: 2nd to CO2 retention. cannot rule out encephalopathy from pneumonia or other infectious process. check ammonia level to be complete. Present on Admission?: Yes (3) Acute on chronic diastolic (congestive) heart failure: Probable decompensated CHF although certainly not to the degree she was in during prior hospitalization. Lasix 40mg IV x 1 and follow response. I don't have a weight yet to compare w/ the last hospital stay. Hold PO lasix until AM labs return and repeat exam is completed. Cont Beta Jason. Present on Admission?: Yes (4) Squamous cell lung cancer: no treatment planned at this time. previously saw Dr. Brown for this. has metastatic disease to the pericardium. has a thoracic compression fracture as well - uncertain if she has mets to this region. but, again, no Rx at this time. Present on Admission?: Yes (5) Pulmonary hypertension: severe. during the previous stay Dr. Villar from pulmonary recommended silanafil TID. the family has inquired if this medication is necessary (patient has a grand- daughter in law in [place] who is a forest nursery supervisor and has questioned if this medication is necessary). will consult Dr. Villar and defer the final decision to him. Pulmonary HTN likely is on the basis of long-standing untreated sleep- disordered breathing/EBONI and COPD. Present on Admission?: Yes (6) Hypertension: BPs have been labile during this stay and the previous stay. Cont BB and CCB. Adjust as needed. Present on Admission?: Yes (7) Hypothyroidism: Cont synthroid. Most recent TSH wnl. (8) Diabetes mellitus: with hypoglycemia. treat the low first. then BSGs ac/hs. loose sliding scale with novolog. add basal if necessary. (9) Hypoglycemia: see above. follow hypoglycemia protocol. (10) Morbid obesity: BMI 42 (11) EBONI (obstructive sleep apnea): BIPAP at HS, but patient noncompliant with such. (12) COPD (chronic obstructive pulmonary disease): not in exacerbation at this time. defer on steroids. (13) Cirrhosis: prior imaging suggested such. ARSHDA? due to right-sided CHF? other? again check ammonia level. (14) Chronic kidney disease, stage IV (severe): creatinine today is at baseline BMP in am (15) Unfavorable prognosis: palliative care consult requested again. palliative care team saw patient during the prior admission but she declined to move in the hospice/palliative care direction, instead opting for rehab, rehospitalization if necessary, etc. she continues to decline and her best option at this point is palliative care/ hospice. (16) DVT prophylaxis: lovenox daily 40mg total time about 70 minutes History of Present Illness Chief Complaint: hypoxia Primary Care Provider: Britney Ayala MD 88yo female with severe pulm HTN, chronic hypoxic/hypercarbic resp failure on 24 /7 O2 and BIPAP at HS, chronic diastolic CHF, and squamous cell lung cancer who presents from [facility] with hypoxia. The patient was just discharged from [facility] on 06/15/18 after a 2 week hospital stay for acute/chronic diastolic CHF and management of her pulmonary HTN, lung ca, etc. Palliative care was consulted during that admission in light of her poor prognosis but the patient wanted to attempt rehab. She did confirm at that time she was a DNR. This AM at the retirement her O2 sats were reportedly in the 70s and she was complaining of dyspnea. About 1 week ago she was seen by speech therapy and her diet texture was changed to ground consistency. She has had poor appetite per her son. Has been noncompliant with BIPAP. PT/ OT have been quite limited at [facility] (getting OOB to chair at most). Son states her mother has been quite sleepy at [facility] since arriving there after her last hospital stay. Several times her son could not wake her up on various visits at the retirement. EMS records show that upon arrival to [facility] today she was in respiratory distress with O2 sats in the 70s. Records from [employer] show she was seen by the pulmonary office after hospital discharge. No medication changes were made at that time. The documentation mentions she was going to be seen again in 2 weeks and discussion was going to be held about whether to continue the sildenafil or not. Allergies Allergy/AdvReac Type Severity Reaction Status Date / Time aspirin AdvReac Mild UPSET Verified 05/29/18 00:50 STOMACH Home Medications Home Medications Medication Instructions Recorded Confirmed Type acetaminophen [Tylenol Arthritis 650 mg PO QID PRN 05/29/18 06/25/18 History Pain] albuterol sulfate [Ventolin HFA] 2 puff INHALATION Q6H PRN 05/29/18 06/25/18 History calcitriol 0.25 mcg PO 3XWK 05/29/18 06/25/18 History ergocalciferol (vitamin D2) 50,000 unit PO WK 05/29/18 06/25/18 History [Vitamin D2] levothyroxine 125 mcg PO DAILY 05/29/18 06/25/18 History sertraline 50 mg PO DAILY 05/29/18 06/25/18 History amlodipine [Norvasc] 5 mg PO QAM #30 tab 06/15/18 06/25/18 Rx furosemide 40 mg PO BID #60 tab 06/15/18 06/25/18 Rx insulin aspart U-100 [Novolog 1 sliding scale dose SUBCUT UD #1 06/15/18 Rx PenFill U-100 Insulin] pen insulin glargine [Lantus Solostar 8 unit SC QPM #1 pen 06/15/18 06/25/18 Rx U-100 Insulin] insulin glargine [Lantus Solostar 20 unit SUBCUT QAM #1 pen 06/15/18 06/25/18 Rx U-100 Insulin] metoprolol succinate 12.5 mg PO DAILY #30 tab 06/15/18 06/25/18 Rx miconazole nitrate [Desenex] 1 applic EXT PRN PRN #45 g 06/15/18 06/25/18 Rx potassium chloride [Klor-Con M20] 20 meq PO DAILY #30 tab 06/15/18 06/25/18 Rx sildenafil (antihypertensive) 20 mg PO TID #90 tab 06/15/18 06/25/18 Rx [Revatio] Past Med/Surg History Medical History Chronic kidney disease, stage IV (severe) Lymphedema B12 deficiency Hypothyroidism Diabetes mellitus Hypertension Squamous cell lung cancer Surgical History History of bilateral knee replacement History of cholecystectomy Hx of pneumonectomy RML S/P tonsillectomy Family History Father Cancer Mother , age 88 Heart attack Social History marital status: Current Living Situation: Long Term 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 Other Information That Helps Us Care for You: No other: 4 children, 1 already Feels Safe at Home: Yes Safety Concerns: Feels Safe At This Time Smoking Status: Unknown if ever smoked Hx Alcohol Use: No Hx Substance Use: No Beliefs That Will Affect Care: None Preferred Language: Cypriot Communication Ability: Effective Bench Inspector Required: No Review of Systems Constitutional: + fatigue and + anorexia; no fever and no chills Eyes: no worsening vision Ear, Nose, Mouth, Throat: + dysphagia; no sore throat Respiratory: + cough, + dyspnea and + dyspnea on exertion; no wheezing Cardiovascular: no chest pain Gastrointestinal: no abdominal pain, no nausea, no vomiting and no diarrhea/ loose stools Genitourinary (Female): + difficulty urinating, + urinary frequency and + urinary incontinence Musculoskeletal: no back pain Integumentary: no rash Neurologic: + generalized weakness Psychiatric: + depression uncontrolled T2DM Physical Exam 2 Vital Signs (Past 24 Hours): Last Vital Signs Temp 36.8 C 06/25/18 10:34 Pulse 77 06/25/18 13:10 Resp 20 06/25/18 13:10 BP 171/62 H 06/25/18 13:10 Pulse Ox 93 06/25/18 13:10 Constitutional: + acute distress (mild tachypnea), + ill appearing and + morbidly obese sleepy but arousable, thinks it is Monday but knows she is in the hospital Eyes: PERRL ENMT: Ears: + EAC abnormality (cerumen impaction b/l ) Mouth: no oropharynx abnormality and no oral mucosal abnormality Neck: trachea midline, no thyromegaly Respiratory: + respiratory distress Auscultation: + diminished lung sounds (right anterior chest; right posterior chest with most of the base decreased; left basilar rales); no rhonchi and no wheezes Cardiovascular: Rate/Rhythm: regular rate; + abnormal rhythm (irregular) Heart Sounds: normal S1, normal S2 and + murmur (1-2/6 LLSB) Vessels: + JVD, posterior tibial pulses present and dorsalis pedis pulses present Extremities : + pedal edema (<1+ b/l ) Gastrointestinal (Abdomen): normal bowel sounds, soft, nontender, no hepatosplenomegaly Musculoskeletal: Extremities: strength 5/5 throughout Skin: no rashes, warm and dry Neurologic: sleepy; DTRs 1-2+ b/l upper and lower extremities; strength 5/5 upper & lower ext w/o focal deficit; no facial droop; speech clear Psychiatric: Orientation: alert; + not oriented x 3 Lymphatic: no cervical lymphadenopathy Results & Data Laboratory Results Laboratory Results - last 24 hr 06/25/18 06/25/18 06/25/18 10:41 10:41 10:41 WBC 7.82 RBC 4.56 Hgb 12.3 Hct 43.5 MCV 95.4 MCH 27.0 MCHC 28.3 L RDW Std Deviation 70.4 H RDW Coeff of Pola 20.2 H Plt Count 142 MPV 10.9 H Immature Gran % (Auto) 0.3 Neut % (Auto) 87.8 Lymph % (Auto) 4.6 Hardin % (Auto) 6.4 Eos % (Auto) 0.8 Baso % (Auto) 0.1 Immature Gran # (Auto) 0.02 Neut # (Auto) 6.87 H Lymph # (Auto) 0.36 L Hardin # (Auto) 0.50 Eos # (Auto) 0.06 Baso # (Auto) 0.01 Anisocytosis Present Stomatocytes 1+ PT Cancelled INR Cancelled APTT Cancelled PTT Ratio Cancelled VBG pH VBG pCO2 VBG pO2 VBG HCO3 VBG O2 Saturation VBG Base Excess Barometric Pressure Sodium Cancelled Potassium Cancelled Chloride Cancelled Carbon Dioxide Cancelled Anion Gap Cancelled BUN Cancelled Creatinine Cancelled Est Cr Clr Drug Dosing Cancelled Est GFR ( Amer) Cancelled Est GFR (Non-Af Amer) Cancelled BUN/Creatinine Ratio Cancelled Glucose Cancelled POC Glucose Calcium Cancelled Total Bilirubin Cancelled AST Cancelled ALT Cancelled Alkaline Phosphatase Cancelled Ammonia Troponin I Cancelled NT-Pro-B Natriuret Pep Cancelled Total Protein Cancelled Albumin Cancelled Globulin Cancelled Albumin/Globulin Ratio Cancelled 06/25/18 06/25/18 06/25/18 10:41 11:29 11:29 WBC RBC Hgb Hct MCV MCH MCHC RDW Std Deviation RDW Coeff of Pola Plt Count MPV Immature Gran % (Auto) Neut % (Auto) Lymph % (Auto) Hardin % (Auto) Eos % (Auto) Baso % (Auto) Immature Gran # (Auto) Neut # (Auto) Lymph # (Auto) Hardin # (Auto) Eos # (Auto) Baso # (Auto) Anisocytosis Stomatocytes PT 11.0 INR 1.1 APTT 28.0 PTT Ratio 1.1 VBG pH 7.27 L VBG pCO2 97 H VBG pO2 44 VBG HCO3 43 VBG O2 Saturation 76.6 VBG Base Excess 11.9 Barometric Pressure 738.4 Sodium 137 Potassium 4.9 Chloride 95 L Carbon Dioxide 41 H* Anion Gap 1.0 L BUN 32 H Creatinine 0.98 Est Cr Clr Drug Dosing Not Reportable Est GFR ( Amer) 60.5 Est GFR (Non-Af Amer) 52.2 BUN/Creatinine Ratio 33.0 H Glucose 88 POC Glucose Calcium 9.0 Total Bilirubin 0.3 AST 15 ALT 16 Alkaline Phosphatase 128 H Ammonia Troponin I 0.036 NT-Pro-B Natriuret Pep 716 Total Protein 6.4 Albumin 2.3 L Globulin 4.1 H Albumin/Globulin Ratio 0.6 L 06/25/18 06/25/18 06/25/18 14:00 14:59 15:20 WBC RBC Hgb Hct MCV MCH MCHC RDW Std Deviation RDW Coeff of Pola Plt Count MPV Immature Gran % (Auto) Neut % (Auto) Lymph % (Auto) Hardin % (Auto) Eos % (Auto) Baso % (Auto) Immature Gran # (Auto) Neut # (Auto) Lymph # (Auto) Hardin # (Auto) Eos # (Auto) Baso # (Auto) Anisocytosis Stomatocytes PT INR APTT PTT Ratio VBG pH 7.36 VBG pCO2 75 H VBG pO2 54 VBG HCO3 41 VBG O2 Saturation 88.0 VBG Base Excess 12.7 Barometric Pressure 738.9 Sodium Potassium Chloride Carbon Dioxide Anion Gap BUN Creatinine Est Cr Clr Drug Dosing Est GFR ( Amer) Est GFR (Non-Af Amer) BUN/Creatinine Ratio Glucose POC Glucose 68 L* Calcium Total Bilirubin AST ALT Alkaline Phosphatase Ammonia 22.0 Troponin I NT-Pro-B Natriuret Pep Total Protein Albumin Globulin Albumin/Globulin Ratio 06/25/18 16:45 WBC RBC Hgb Hct MCV MCH MCHC RDW Std Deviation RDW Coeff of Pola Plt Count MPV Immature Gran % (Auto) Neut % (Auto) Lymph % (Auto) Hardin % (Auto) Eos % (Auto) Baso % (Auto) Immature Gran # (Auto) Neut # (Auto) Lymph # (Auto) Hardin # (Auto) Eos # (Auto) Baso # (Auto) Anisocytosis Stomatocytes PT INR APTT PTT Ratio VBG pH VBG pCO2 VBG pO2 VBG HCO3 VBG O2 Saturation VBG Base Excess Barometric Pressure Sodium Potassium Chloride Carbon Dioxide Anion Gap BUN Creatinine Est Cr Clr Drug Dosing Est GFR ( Amer) Est GFR (Non-Af Amer) BUN/Creatinine Ratio Glucose POC Glucose 100 H Calcium Total Bilirubin AST ALT Alkaline Phosphatase Ammonia Troponin I NT-Pro-B Natriuret Pep Total Protein Albumin Globulin Albumin/Globulin Ratio Diagnostic Findings cxr - FINDINGS: Elevation the right hemidiaphragm is noted. There is extensive right mid and lower lung airspace opacity which has progressed since exam of June. Diffuse interstitial thickening has increased. Cardiomegaly is unchanged. Left lower lung opacity has slightly increased. There is no pneumothorax. Several right-sided rib fractures are noted. IMPRESSION: 1. Increase in bibasilar opacities, right greater left, with suspected right middle and lower lobe pneumonia/atelectasis. An underlying mass cannot be excluded. Radiographic follow-up is recommended. 2. Increase in interstitial thickening suggestive of pulmonary edema. EKG - my reading - NSR, PACs, mild J-point elevation inferior leads but this is similar to previous EKG; no other ST changes Code Status & VTE Plan Code Status level 5 DNR VTE Prophylaxis Plan VTE Prophylaxis will be ordered: Yes _ (1) Diabetes mellitus Chronic kidney disease stage: stage 3 (moderate) Diabetes mellitus complication detail: with chronic kidney disease Diabetes mellitus complication status: with kidney complications Diabetes mellitus predatory animal exterminator insulin use: with predatory animal exterminator use Diabetes mellitus macular edema: Diabetes mellitus type: type 2 Diabetic retinopathy severity: Laterality: Proliferative retinopathy type: Qualified Code(s): E11.22 - Type 2 diabetes mellitus with diabetic chronic kidney disease; N18.3 - Chronic kidney disease, stage 3 (moderate); Z79.4 - alf (current) use of insulin (2) Hypothyroidism Hypothyroidism type: acquired Qualified Code(s): E03.9 - Hypothyroidism, unspecified (3) Cirrhosis Ascites presence: Hepatic cirrhosis type: other cirrhosis Qualified Code(s) : K74.69 - Other cirrhosis of liver (4) COPD (chronic obstructive pulmonary disease) COPD type: COPD with acute exacerbation Chronic bronchitis type: Emphysema type: Qualified Code(s): J44.1 - Chronic obstructive pulmonary disease with ( acute) exacerbation (5) Squamous cell lung cancer Laterality: right Qualified Code(s): C34.91 - Malignant neoplasm of unspecified part of right bronchus or lung (6) Hypertension Hypertension type: essential hypertension Qualified Code(s): I10 - Essential (primary) hypertension
[2018-06-25 14:15] LABS: Base Excess VBG 12.7 mEq/L; pH VBG 7.36 (7.36-7.41)
[2018-06-25] MEDS ORDERED: FUROSEMIDE 40 MG/4 ML VIAL IV ONE (14:23)
[2018-06-25] MEDS: LEVOFLOXACIN/D5W 750 MG/150 ML BAG IV SCH ×2 (14:35→15:12)
[2018-06-25] MEDS: PIPERACILLIN/TAZOBACTAM 3.375 GM in DEXTROSE 5% 100 ML IV SCH ×2 (14:35→16:43)
[2018-06-25] MEDS ORDERED: ACETAMINOPHEN 325 MG TAB PO PRN (15:52)
[2018-06-25] MEDS ORDERED: NITROGLYCERIN SL 0.4 MG/TAB TAB SL PRN (15:52)
[2018-06-25] MEDS ORDERED: ONDANSETRON INJ 2 MG/ML 2 ML VIAL IV PRN (15:52)
[2018-06-25] MEDS ORDERED: FUROSEMIDE 40 MG/4 ML VIAL IV STA (15:52)
[2018-06-25] MEDS ORDERED: MICONAZOLE NITRATE POWDER 43 GM EXT PRN (15:52)
[2018-06-25] MEDS ORDERED: ALBUTEROL HFA 8 GM INHALER INH PRN (15:52)
[2018-06-25] MEDS ORDERED: PIPERACILL/TAZOBAC CONSULT ACTIVE PRN (15:52)
[2018-06-25] MEDS ORDERED: GLUCAGON FOR INJ 1 MG VIAL IM PRN (17:45)
[2018-06-25] MEDS ORDERED: GLUCOSE 10 TABS/TUBE PO PRN (17:45)
[2018-06-25] MEDS ORDERED: DEXTROSE 50% 50 ML SYRINGE IV PRN (17:45)
[2018-06-25] MEDS ORDERED: GLUCOSE 40% GEL 15 GM TUBE PO PRN (17:45)
[2018-06-25] MEDS ORDERED: CARBOHYDRATES FOR HYPOGLYCEMIA PO PRN (17:45)
[2018-06-25] MEDS: INSULIN ASPART 100 UNITS/ML 3 ML PEN SC SCH ×2 (18:27→20:44)
[2018-06-25] MEDS ORDERED: LEVOFLOXACIN CONSULT ACTIVE PRN (19:23)
--- NOTE | 2018-06-25 20:17 | Pulmonary Consultation ---
Date of Consultation June 25, 2018 Assessment & Plan (1) Hypercapnia: Impression: 1. Chronic hypercapnic respiratory failure, PCO2 is well compensated with a pH of 7.36 venously. 2. Morbid obesity contributing to her CO2 retention as well with obstructive sleep apnea. 3. Squamous cell lung cancer, stage IV by definition. Positive biopsy in the epicardial region. 4. Cor pulmonale with severe pulmonary hypertension, WHO class II/III, currently on sildenafil, she will not tolerate any other treatment. 5. Right middle lobe atelectasis, developing right lower lobe as well with atelectasis. Plan: 1. I would repeat CAT scan of the chest. 2. I will continue her current medication including sildenafil. Monotherapy is less effective in general and pulmonary hypertension, however in this patient did unload her dilated RV significantly. Her current BNP is back to normal with this treatment. 3. Continue with diuresis. 4. Level of aggressiveness due to the volume loss in the right lower lobe and right middle lobe to be determined by the family, patient is at risk for any type of bronchoscopy with sedation. 5. Agree with palliative care. Thank you, will follow. History of Present Illness Reason for Consultation: Short of breath Requesting Physician: Dr. Parr Attending Physician: Bear Parr History of Present Illness Dear Dr. Parr: Thank you for the kind referral Mrs. Hsu to pulmonary service. This is 88- year-old female known to me from the past with history of stage IV squamous cell lung cancer, severe pulmonary hypertension, COPD, chronic hypoxic and hypercapnic respiratory failure, cor pulmonale, deconditioning. The patient was recently admitted to the hospital and after prolonged hospitalization, she was treated for all the above and did better when she was transferred [facility]. The patient was transferred back again due to hypoxia. The patient was admitted to the hospital for further evaluation. When I interviewed the patient, she is well-known to me from the past, the patient was unable to determine if her respiratory status is worse or better from before, her O2 saturation has been variable. The patient was answering questions and following commands, but she does have significant orthopnea. No chest pain was reported. No abdominal pain, no syncopal episodes. No nausea or vomiting and no heartburn. Review of system otherwise was unremarkable. Known her from the past, the patient lower extremity edema has improved upon discharge last time but seems to return again. Review of system was unremarkable. Family history does not contribute to her current illness. Social history was difficult to obtain at this point. Allergies Allergy/AdvReac Type Severity Reaction Status Date / Time aspirin AdvReac Mild UPSET Verified 05/29/18 00:50 STOMACH Home Medications Home Medications Medication Instructions Recorded Confirmed Type acetaminophen [Tylenol Arthritis 650 mg PO QID PRN 05/29/18 06/25/18 History Pain] albuterol sulfate [Ventolin HFA] 2 puff INHALATION Q6H PRN 05/29/18 06/25/18 History calcitriol 0.25 mcg PO 3XWK 05/29/18 06/25/18 History ergocalciferol (vitamin D2) 50,000 unit PO WK 05/29/18 06/25/18 History [Vitamin D2] levothyroxine 125 mcg PO DAILY 05/29/18 06/25/18 History sertraline 50 mg PO DAILY 05/29/18 06/25/18 History amlodipine [Norvasc] 5 mg PO QAM #30 tab 06/15/18 06/25/18 Rx furosemide 40 mg PO BID #60 tab 06/15/18 06/25/18 Rx insulin aspart U-100 [Novolog 1 sliding scale dose SUBCUT UD #1 06/15/18 Rx PenFill U-100 Insulin] pen insulin glargine [Lantus Solostar 8 unit SC QPM #1 pen 06/15/18 06/25/18 Rx U-100 Insulin] insulin glargine [Lantus Solostar 20 unit SUBCUT QAM #1 pen 06/15/18 06/25/18 Rx U-100 Insulin] metoprolol succinate 12.5 mg PO DAILY #30 tab 06/15/18 06/25/18 Rx miconazole nitrate [Desenex] 1 applic EXT PRN PRN #45 g 06/15/18 06/25/18 Rx potassium chloride [Klor-Con M20] 20 meq PO DAILY #30 tab 06/15/18 06/25/18 Rx sildenafil (antihypertensive) 20 mg PO TID #90 tab 06/15/18 06/25/18 Rx [Revatio] Patient History Medical History Chronic kidney disease, stage IV (severe) Lymphedema B12 deficiency Hypothyroidism Diabetes mellitus Hypertension Squamous cell lung cancer Surgical History History of bilateral knee replacement History of cholecystectomy Hx of pneumonectomy RML S/P tonsillectomy Family History Father Cancer Mother , age 88 Heart attack Social History marital status: Current Living Situation: [facility] 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 Physical Exam 2 Vital Signs (Past 24 Hours): Last Vital Signs Temp 37.1 C 06/25/18 19:19 Pulse 91 H 06/25/18 19:19 Resp 18 06/25/18 19:19 BP 116/59 L 06/25/18 19:19 Pulse Ox 88 L 06/25/18 19:19 Physical Exam: Vital signs remained stable, O2 saturation is 88%, currently the patient is on a BiPAP. S1-S2 regular rate and rhythm. Distant breath sounds bilaterally. Abdomen is obese but benign. Edema in the periphery. Results & Data Laboratory Results Her labs were reviewed which showed normal CBC, pH is 7.36 and PCO2 of 75 which is approximately 84 arterial blood gas. Bicarb is 41. And BUN/creatinine 32 and 0.98. Her BNP was 716. Diagnostic Findings Chest x-ray which I reviewed personally showed atelectasis of the right lower lobe and right middle lobe as well.
[2018-06-25] MEDS: ENOXAPARIN INJ 40 MG/0.4 ML SYR SQ SCH (20:45)
[2018-06-25] MEDS: INSULIN GLARGINE SOLOSTAR 100 UNITS/ML 3 ML PEN SC SCH (20:47)
--- NOTE | 2018-06-25 21:26 | CT Scan Report ---
CT chest wo con CLINICAL HISTORY: Worsening right lung atelectasis. COMPARISON STUDY: CT scan dated 05/28/2018, chest x-ray dated 06/25/2018 CT DOSE: 1040.61 mGy.cm TECHNIQUE: CT of the thorax was performed from the thoracic inlet to the lung bases. Images are revi ewed in the axial, sagittal, and coronal planes. IV contrast was not administered for this examinatio n. A dose lowering technique was utilized adhering to the principles of ALARA. FINDINGS: Thyroid: Imaged portions of the thyroid gland are normal in appearance. Thoracic aorta: The thoracic aorta is normal in course and caliber, noting standard 3 vessel arch amy ann. Heart: There are mild coronary artery calcifications. There is no significant pericardial effusion. T he heart is mildly enlarged. There is pulmonary artery enlargement suggesting pulmonary arterial hype rtension. Lungs and pleural spaces: The study is slightly compromised due to motion artifact. There is a small right pleural effusion. There is persistent complete atelectasis/consolidation of the right middle lo be. Since the prior study, the patient has developed right lower lobe atelectasis/consolidation with air bronchograms. Suture like material is again visualized within the right lung suggesting prior shira mali. There are mild left basilar atelectatic changes. A polypoid density within the trachea as visua lized in image #[id number], likely represents secretions as this was not present on the prior study perfo rmed May 2018 Mediastinum: There is mild mediastinal lymphadenopathy including a 15 mm precarinal lymph node Miriam: The miriam are difficult to assess given the lack of intravenous contrast Axilla: There is no evidence of pathologic axillary lymphadenopathy Upper abdomen: Partially visualized upper abdominal viscera is within normal limits. Skeletal structures: Again evident is a severe T5 compression fracture. There are old right-sided rib fractures. IMPRESSION: 1. Interval development of a small right pleural effusion 2. Persistent dense consolidation/atelectasis of the right middle lobe with cut off of the right midd le lobe bronchi 3. Interval development of atelectasis/consolidation within the right lower lobe with air bronchogram s 4. Mild mediastinal lymphadenopathy 5. Suspected pulmonary arterial hypertension Electronically signed by: Blake Jonas M.D. 06/25/2018 9:25 PM
[2018-06-25] MEDS: SILDENAFIL CITRATE 20 MG TABLET PO SCH (21:40)
[2018-06-26] MEDS: PIPERACILLIN/TAZOBACTAM 3.375 GM in DEXTROSE 5% 100 ML IV SCH ×3 (01:05→17:37)
[2018-06-26 06:03] LABS: BUN Creatinine Ratio 29.8 (10-20); Calcium 8.9 mg/dl (8.5-10.1); Creatinine Clr Calc Pharmacy 42.3 ml/min; Est GFR (African American) 58.4; Est GFR (Non-African American) 50.4; Magnesium 1.8 mg/dl (1.8-2.4); Potassium 4.2 mmol/L (3.5-5.1)
[2018-06-26] MEDS: LEVOTHYROXINE SODIUM 125 MCG TABLET PO SCH (06:19)
[2018-06-26] MEDS: INSULIN ASPART 100 UNITS/ML 3 ML PEN SC SCH ×4 (08:39→21:33)
[2018-06-26] MEDS: INSULIN GLARGINE SOLOSTAR 100 UNITS/ML 3 ML PEN SQ SCH (08:39)
[2018-06-26] MEDS: SERTRALINE HCL 50 MG TABLET PO SCH (08:40)
[2018-06-26] MEDS: POTASSIUM CHLORIDE 20 MEQ TABCR PO SCH (08:40)
[2018-06-26] MEDS: AMLODIPINE BESYLATE 5 MG TAB PO SCH (08:41)
[2018-06-26] MEDS: SILDENAFIL CITRATE 20 MG TABLET PO SCH ×3 (08:41→21:34)
[2018-06-26] MEDS: METOPROLOL SUCC 25MG EXT REL TAB PO SCH (08:41)
[2018-06-26] MEDS ORDERED: VANCOMYCIN CONSULT ACTIVE PRN (08:51)
[2018-06-26] MEDS ORDERED: VANCOMYCIN HCL 1,000 MG in SODIUM CHLORIDE 0.9% 250 ML IV SCH (09:00)
[2018-06-26] MEDS ORDERED: VANCOMYCIN HCL 2,500 MG in SODIUM CHLORIDE 0.9% 500 ML IV STA (09:53)
--- NOTE | 2018-06-26 10:01 | Palliative Care Consultation ---
Addendum entered and electronically signed by MATTHIEU Brown 14:31: Addendum (Blank) Addendum June 26, 2018 14:23 Returned to patient's room at the request of patient's son/POA, Jhony. Jhony stated that the family is supportive of whatever decision patient wants to make regarding goals of care. I spoke to the patient again. She stated that she wishes to go back to [facility] on comfort measures. Patient able to answer open ended questions and repeat the plan back to me. She stated, "I know I'm dying." ONce back to SNF, she can wear the bipap if she would like, but does not have to. She typically prefers to not wear bipap. Patient does not want to return to the hospital and would be okay with hospice care, her son Jhony is in agreement as well. Family would be okay trasferring patient back to [facility] as soon as they are able to accept her back. I updated upper caser as well as MATTHIEU Hackett and Dr. Garcia. Spent additional 30 minutes. 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 Patient was discharged from hospital 10 days prior after being here for 17 days with COPD and CHF exacerbations. Patient was requiring bipap during her stay, but was occasionally refusing. Palliative care family meeting was held prior to discharge on 06/14 regarding goals of care, patient and family decided they would give rehab a try and bring patient back to hospital if needed. She was discharged to [facility] for rehab. Patient now returns with decompensated respiratory failure, oxygen saturations in 70s upon arrival from [facility]. CO2 chronically elevated, but was 97 on ABG. Co2 improved to 75 last evening. Patient is mentating well this morning and is back to baseline. Palliative care consulted to continue conversation about goals of care. -Met with patient in room 222 this morning. She is awake, alert and oriented x4. Patient states she is feeling much better. States she was doing "okay, but not great," with rehab. -Patient states that her and her children have been having ongoing conversation about goals of care. She is unsure at this point if she wants to continue with rehab and trying to "improve," or if she just wants to be focus on comfort and allow nature to take its course. She has requested to see how the next 24-48 hours go and is okay with palliative care following along. -PPS about 40% at this time. Consider PT/OT to assess where patient is at with her activity level. Rehab potential is probably poor at this point. Family agreed with this on last admission. -Front Office Developer is consulted for management. -No symptom management needs at this time, but will continue to reassess. (2) Acute on chronic respiratory failure with hypoxia and hypercapnia: -During May admission had acute/chronic diastolic CHF, severe pulmonary HTN was found, and progression of her cancer was also seen. Had 15+ liter diuresis during that time. -Now has decompensated respiratory failure with significant CO2 retention. -Reportedly has been noncompliant with BIPAP at the SNF (she was noncompliant with BIPAP during her previous stay as well) which is contributing to her issues. -Had Lasix 40mg IV x 1. -IV antibiotics. -Pulm is consulted. -IF patient continues to be noncompliant with bipap, will continue on this cycle of improvement --> decompensation. (3) Metabolic encephalopathy: -2/2 CO2 retention. -Improved/resolved. (4) Acute on chronic diastolic (congestive) heart failure: -Possible element of decompensated CHF. -Received Lasix 40mg IV x 1. (5) Squamous cell lung cancer: -No treatment planned at this time. 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 -Has a thoracic compression fracture as well - uncertain if she has mets to this region. Patient and family are aware of this and there was no planned intervention. Laterality: right Qualified Code(s): C34.91 - Malignant neoplasm of unspecified part of right bronchus or lung (6) Pulmonary hypertension: -Severe pulm htn in the setting of EBONI and COPD. -Pulmonolgist following. Recommends continuing her current meds including sildenafil TID. Supervising Physician Co-Signing Physician Notes Chart reviewed, patient seen and examined-no family at bedside. PE: Patient awake, oriented to person and place, NAD Respiratory: Recently had BiPAP removed-on nasal cannula, respirations unlabored CV: Regular rate Abdomen: Soft nontender Extremities: No edema Neuro: Alert, oriented to person and place Agree with above note, assessment and plan as per FRANK Lennon P-we will continue to assist son with medical decision making. Plan is to return to [facility] under hospice care. 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 Patient was discharged from hospital 10 days prior after being here for 17 days with COPD and CHF exacerbations. Patient was requiring bipap during her stay, but was occasionally refusing. Palliative care family meeting was held prior to discharge on 06/14 regarding goals of care, patient and family decided they would give rehab a try and bring patient back to hospital if needed. She was discharged to [facility] for rehab. Patient now returns with decompensated respiratory failure, oxygen saturations in 70s upon arrival from [facility]. CO2 chronically elevated, but was 97 on ABG. Co2 improved to 75 last evening. Patient is mentating well this morning and is back to baseline. Palliative care consulted to continue conversation about goals of care. Thank you kindly for this consult. I will follow. Allergies Allergy/AdvReac Type Severity Reaction Status Date / Time aspirin AdvReac Mild UPSET Verified 05/29/18 00:50 STOMACH Home Medications Home Medications Medication Instructions Recorded Confirmed Type acetaminophen [Tylenol Arthritis 650 mg PO QID PRN 05/29/18 06/25/18 History Pain] albuterol sulfate [Ventolin HFA] 2 puff INHALATION Q6H PRN 05/29/18 06/25/18 History calcitriol 0.25 mcg PO 3XWK 05/29/18 06/25/18 History ergocalciferol (vitamin D2) 50,000 unit PO WK 05/29/18 06/25/18 History [Vitamin D2] levothyroxine 125 mcg PO DAILY 05/29/18 06/25/18 History sertraline 50 mg PO DAILY 05/29/18 06/25/18 History amlodipine [Norvasc] 5 mg PO QAM #30 tab 06/15/18 06/25/18 Rx furosemide 40 mg PO BID #60 tab 06/15/18 06/25/18 Rx insulin aspart U-100 [Novolog 1 sliding scale dose SUBCUT UD #1 06/15/18 Rx PenFill U-100 Insulin] pen insulin glargine [Lantus Solostar 8 unit SC QPM #1 pen 06/15/18 06/25/18 Rx U-100 Insulin] insulin glargine [Lantus Solostar 20 unit SUBCUT QAM #1 pen 06/15/18 06/25/18 Rx U-100 Insulin] metoprolol succinate 12.5 mg PO DAILY #30 tab 06/15/18 06/25/18 Rx miconazole nitrate [Desenex] 1 applic EXT PRN PRN #45 g 06/15/18 06/25/18 Rx potassium chloride [Klor-Con M20] 20 meq PO DAILY #30 tab 06/15/18 06/25/18 Rx sildenafil (antihypertensive) 20 mg PO TID #90 tab 06/15/18 06/25/18 Rx [Revatio] Patient History Medical History Chronic kidney disease, stage IV (severe) Lymphedema B12 deficiency Hypothyroidism Diabetes mellitus Hypertension Squamous cell lung cancer Surgical History History of bilateral knee replacement History of cholecystectomy Hx of pneumonectomy RML S/P tonsillectomy Family History Father Cancer Mother , age 88 Heart attack Social History marital status: Current Living Situation: [place] 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 Other Information That Helps Us Care for You: No other: 4 children, 1 already Feels Safe at Home: Yes Safety Concerns: Feels Safe At This Time Smoking Status: Unknown if ever smoked Hx Alcohol Use: No Hx Substance Use: No Beliefs That Will Affect Care: None Communication Ability: Effective Review of Systems Constitutional: + weakness Respiratory: + dyspnea on exertion; no cough and no dyspnea Cardiovascular: no chest pain and no edema Gastrointestinal: no abdominal pain, no nausea and no vomiting Musculoskeletal: + muscle weakness Integumentary: no problem reported Neurologic: no confusion Psychiatric: no anxiety Physical Exam 2 Vital Signs (Past 24 Hours): Last Vital Signs Temp 36.8 C 06/26/18 07:29 Pulse 69 06/26/18 07:29 Resp 18 06/26/18 07:29 BP 150/74 H 06/26/18 07:29 Pulse Ox 94 06/26/18 07:29 Constitutional: + ill appearing (chronically ill-appearing), + obese and comfortable ENMT: Ears: no hearing impairment Neck: normal visual inspection and trachea midline Respiratory: normal respiratory effort; no respiratory distress Auscultation: + diminished lung sounds Cardiovascular: RRR, no murmur, no edema Vessels: dorsalis pedis pulses present; no JVD Gastrointestinal (Abdomen): Inspection/Auscultation: normal bowel sounds; abdomen not distended (obese abdomen) Percussion/Palpation: abdomen soft; abdomen nontender Musculoskeletal: general deconditioning Skin: no rashes, warm and dry Neurologic: awake; not confused Psychiatric: A+Ox3, euthymic affect Time Spent Midlevel 50 minutes with >50% of time spent at bedside with patient discussing condition and GOC.
--- NOTE | 2018-06-26 12:41 | Hospitalist Progress Note ---
Date of Service June 26, 2018 Assessment & Plan (1) Acute on chronic respiratory failure with hypoxia and hypercapnia: Patient had similar presentation in late May. During that admission had acute/chronic diastolic CHF, severe pulmonary HTN was found, and progression of her cancer was also seen. She had 15+ liter diuresis during that admission. Admitted for decompensated respiratory failure with significant CO2 retention. Radiographically it appears several things could be going on including progression of her cancer and/or recurrent CHF and/or recurrent pneumonia vs development of pleural effusion. She has also been noncompliant with BIPAP at the SNF (she was noncompliant with BIPAP during her previous stay as well) which is contributing to her issues. Continue BIPAP. - continue diuresing with 40 mg IV furosmide bid for decompensated CHF and cor pulmonale -continue IV antibiotics to cover for aspiration pneumonia vs gram negative pneumonia vs obstructive pneumonia (zosyn, levaquin), added vancomycin as MRSA screen was positive - flu negative No symptoms of the flu but will check it to be complete. Pulmonology and palliative care consulted - patient would like to return to [facility] with palliative/comfort care (2) Metabolic encephalopathy: resolved (3) Acute on chronic diastolic (congestive) heart failure: Lasix 40mg IV bid, Serna for accurate Is&Os as patient is incontinent (4) Squamous cell lung cancer: no treatment planned at this time. previously saw Dr. Brown for this. has metastatic disease to the pericardium. has a thoracic compression fracture as well - uncertain if she has mets to this region. (5) Pulmonary hypertension: severe. during the previous stay Dr. Villar from pulmonary recommended silanafil TID. the family has inquired if this medication is necessary (patient has a grand- daughter in law in [place] who is a coal passer and has questioned if this medication is necessary). pulmonology consulted Pulmonary HTN likely is on the basis of long-standing untreated sleep- disordered breathing/EBONI and COPD. (6) Hypertension: BPs have been labile during this stay and the previous stay. Cont BB and CCB. Adjust as needed. (7) Hypothyroidism: Cont synthroid. Most recent TSH wnl. (8) Diabetes mellitus: continue bsgs ac & hs, ss (9) Hypoglycemia: resolved (10) Morbid obesity: BMI 42 (11) EBONI (obstructive sleep apnea): BIPAP at HS - patient wishes to have the bipap for comfort but be able to take it on and off as she does not tolerate it well (12) COPD (chronic obstructive pulmonary disease): not in exacerbation at this time. defer on steroids. (13) Cirrhosis: prior imaging suggested such. ARSHAD? due to right-sided CHF? other? (14) Chronic kidney disease, stage IV (severe): creatinine at baseline (15) Unfavorable prognosis: Patient requesting return to [facility] on hospice. Will have a bed tomorrow. (16) DVT prophylaxis: lovenox daily 40mg Subjective Ms. Hsu reports feeling ok except for feeling weak. She is coughing a bit but without much production. She has no other complaints Review of Systems All systems reviewed & are unremarkable except as noted in HPI & below Physical Exam 2 Vital Signs (Past 24 Hours): Last Vital Signs Temp 36.7 C 06/26/18 11:31 Pulse 79 06/26/18 11:31 Resp 22 06/26/18 11:31 BP 132/72 06/26/18 11:31 Pulse Ox 91 06/26/18 11:31 Physical Exam: General: no distress Eyes: normal inspection, PERLL Respiratory: chest non tender, clear to auscultation, normal breath sounds, no respiratory distress, no accessory muscle use Cardiac: regular rate and rhythm, no rub or gallop, no murmur, no edema, no jvd GI/: active bowel sounds, no abd pain or tenderness, soft, non distended Extremities: normal range of motion, normal strength, non tender Neuro:oriented x 3, moves all extremities Psych: alert, normal mood and affect Skin: normal color, dry Results & Data Laboratory Results Abnormal lab results 06/25/18 06/25/18 06/25/18 Range/Units 14:00 15:20 16:38 VBG pCO2 75 H (38-50) mmHg Sodium (136-145) mmol/L Chloride (98-107) mmol/L Carbon Dioxide (21-32) mmol/L Anion Gap (3-11) BUN (7-18) mg/dl BUN/Creatinine Ratio (10-20) POC Glucose 68 L* (70-99) Nasal Screen MRSA (PCR) Positive A (Negative) 06/25/18 06/26/18 06/26/18 Range/Units 16:45 05:23 07:30 VBG pCO2 (38-50) mmHg Sodium 135 L (136-145) mmol/L Chloride 92 L (98-107) mmol/L Carbon Dioxide 41 H* (21-32) mmol/L Anion Gap 2.0 L (3-11) BUN 30 H (7-18) mg/dl BUN/Creatinine Ratio 29.8 H (10-20) POC Glucose 100 H 101 H (70-99) Nasal Screen MRSA (PCR) (Negative) 06/26/18 Range/Units 11:24 VBG pCO2 (38-50) mmHg Sodium (136-145) mmol/L Chloride (98-107) mmol/L Carbon Dioxide (21-32) mmol/L Anion Gap (3-11) BUN (7-18) mg/dl BUN/Creatinine Ratio (10-20) POC Glucose 113 H (70-99) Nasal Screen MRSA (PCR) (Negative) _ (1) Diabetes mellitus Chronic kidney disease stage: stage 3 (moderate) Diabetes mellitus complication detail: with chronic kidney disease Diabetes mellitus complication status: with kidney complications Diabetes mellitus termite exterminator helper insulin use: with long-term use Diabetes mellitus macular edema: Diabetes mellitus type: type 2 Diabetic retinopathy severity: Laterality: Proliferative retinopathy type: Qualified Code(s): E11.22 - Type 2 diabetes mellitus with diabetic chronic kidney disease; N18.3 - Chronic kidney disease, stage 3 (moderate); Z79.4 - regional intermodal truck driver (current) use of insulin (2) Hypothyroidism Hypothyroidism type: acquired Qualified Code(s): E03.9 - Hypothyroidism, unspecified (3) Cirrhosis Ascites presence: Hepatic cirrhosis type: other cirrhosis Qualified Code(s) : K74.69 - Other cirrhosis of liver (4) COPD (chronic obstructive pulmonary disease) COPD type: COPD with acute exacerbation Chronic bronchitis type: Emphysema type: Qualified Code(s): J44.1 - Chronic obstructive pulmonary disease with ( acute) exacerbation (5) Squamous cell lung cancer Laterality: right Qualified Code(s): C34.91 - Malignant neoplasm of unspecified part of right bronchus or lung (6) Hypertension Hypertension type: essential hypertension Qualified Code(s): I10 - Essential (primary) hypertension
[2018-06-26] MEDS ORDERED: FUROSEMIDE 40 MG in SYRINGE 0 ML IV ONE (14:00)
--- NOTE | 2018-06-26 15:07 | Pharmacy Report ---
Pharmacy Abx Dose Short Note - Date of Service June 26, 2018 - Assessment & Plan Assessment * 88 yo F with SCLC and diabetes admitted for acute on chronic respiratory failure with hypoxia and hypercapnia * Pharmacy consulted for Zosyn, levofloxacin, and vancomycin for pulmonary coverage * Nasal MRSA positive Vancomycin * Loading dose of 26 mg/kg given. Will dose ongoing at 15 mg/kg close to t1/2 * Of note, patient is at risk for accumulation 2nd BMI. Therefore she may require a dose reduction in vancomycin even if the level is therapeutic * Goal vancomycin trough 15-20 mcg/mL Plan * Vancomycin 2500 mg IV x1 then 1500 mg IV q16h * Trough 06/28 @ 0930 Pharmacy will continue to follow and will adjust dose/frequency as necessary. Thank you.
--- NOTE | 2018-06-26 18:55 | Pulmonology Progress Note ---
Date of Service June 26, 2018 Assessment & Plan (1) Hypercapnia: Impression: 1. Chronic hypercapnic respiratory failure, PCO2 is well compensated with a pH of 7.36 venously. 2. Morbid obesity contributing to her CO2 retention as well with obstructive sleep apnea. 3. Squamous cell lung cancer, stage IV by definition. Positive biopsy in the epicardial region. 4. Cor pulmonale with severe pulmonary hypertension, WHO class II/III, currently on sildenafil, she will not tolerate any other treatment. 5. Right middle lobe atelectasis, developing right lower lobe as well with atelectasis. Plan: 1. CT findings noted, the patient does have progression of atelectasis of the right middle lobe involving now the right lower lobe as well with development of pleural effusion, that appears to be reactive. 2. Palliative care consult appreciated, the [facility]. 3. Continue with diuresis. 4. Agree with palliative care, family decision. Thank you, will follow as needed. Subjective Clinically the patient feeling the same, denies any increased shortness of breath, no new symptoms. Physical Exam 2 Vital Signs (Past 24 Hours): Last Vital Signs Temp 36.5 C 06/26/18 15:02 Pulse 73 06/26/18 16:30 Resp 18 06/26/18 15:02 BP 175/69 H 06/26/18 15:02 Pulse Ox 99 06/26/18 15:02 Physical Exam: Elderly female, does not appear to be in any distress, she speaks in full sentences, tolerating oral intake, 99% on 4 L, diminished breath sounds at the bases, abdomen is benign, edema in the periphery. Results & Data Laboratory Results Labs were reviewed which showed BUN and creatinine are stable, CO2 of 41. Diagnostic Findings CAT scan of the chest showed small right pleural effusion, persistent atelectasis of the right middle lobe and atelectasis of the right lower lobe, severe pulmonary hypertension.
[2018-06-26] MEDS: INSULIN GLARGINE SOLOSTAR 100 UNITS/ML 3 ML PEN SC SCH (21:31)
[2018-06-26] MEDS: ENOXAPARIN INJ 40 MG/0.4 ML SYR SQ SCH (21:32)
[2018-06-27] MEDS: PIPERACILLIN/TAZOBACTAM 3.375 GM in DEXTROSE 5% 100 ML IV SCH ×2 (01:33→10:19)
[2018-06-27] MEDS ORDERED: VANCOMYCIN HCL 1,500 MG in SODIUM CHLORIDE 0.9% 500 ML IV SCH (02:00)
[2018-06-27] MEDS: LEVOTHYROXINE SODIUM 125 MCG TABLET PO SCH (05:41)
[2018-06-27] MEDS: POTASSIUM CHLORIDE 20 MEQ TABCR PO SCH (08:45)
[2018-06-27] MEDS: INSULIN GLARGINE SOLOSTAR 100 UNITS/ML 3 ML PEN SQ SCH (08:45)
[2018-06-27] MEDS: INSULIN ASPART 100 UNITS/ML 3 ML PEN SC SCH ×2 (08:45→12:19)
[2018-06-27] MEDS: SILDENAFIL CITRATE 20 MG TABLET PO SCH ×2 (08:47→13:34)
[2018-06-27] MEDS: SERTRALINE HCL 50 MG TABLET PO SCH (08:48)
[2018-06-27] MEDS ORDERED: CALCITRIOL 0.25 MCG CAPSULE PO SCH (09:00)
[2018-06-27] MEDS ORDERED: FUROSEMIDE 40 MG TAB PO SCH (09:00)
[2018-06-27] MEDS: AMLODIPINE BESYLATE 5 MG TAB PO SCH (09:12)
[2018-06-27] MEDS: METOPROLOL SUCC 25MG EXT REL TAB PO SCH (09:12)
[2018-06-27] MEDS ORDERED: MoRPHine SULFATE 5 MG/0.25 ML UDP PO PRN (10:42)
--- NOTE | 2018-06-27 11:34 | Hospitalist Progress Note ---
Date of Service June 27, 2018 Assessment & Plan (1) Acute on chronic respiratory failure with hypoxia and hypercapnia: Patient had similar presentation in late May. During that admission had acute/chronic diastolic CHF, severe pulmonary HTN was found, and progression of her cancer was also seen. She had 15+ liter diuresis during that admission. Admitted for decompensated respiratory failure with significant CO2 retention. -Per her discussion with palliative care, she would like to move to hospice care and stop infusions/abx. -Continue BIPAP as she can tolerate. - continue diuresing with 40 mg po furosmide bid for decompensated CHF and cor pulmonale - flu negative Pulmonology and palliative care consulted - patient would like to return to [facility] with palliative/comfort care - will hold off on transfer for today. Patient is markedly more uncomfortable/distressed today than yesterday. I think if we can better manage her symptoms for today she will be ready to transfer tomorrw. (2) Metabolic encephalopathy: resolved (3) Acute on chronic diastolic (congestive) heart failure: Lasix 40mg po bid, Serna for accurate Is&Os as patient is incontinent (4) Squamous cell lung cancer: no treatment planned at this time. previously saw Dr. Brown for this. has metastatic disease to the pericardium. has a thoracic compression fracture as well - uncertain if she has mets to this region. (5) Pulmonary hypertension: severe. during the previous stay Dr. Villar from pulmonary recommended silanafil TID. the family has inquired if this medication is necessary (patient has a grand- daughter in law in [place] who is a civil drafter and has questioned if this medication is necessary). pulmonology consulted Pulmonary HTN likely is on the basis of long-standing untreated sleep- disordered breathing/EBONI and COPD. (6) Hypertension: BPs have been labile during this stay and the previous stay. Cont BB and CCB. Adjust as needed. (7) Hypothyroidism: Cont synthroid. Most recent TSH wnl. (8) Diabetes mellitus: continue bsgs ac & hs, ss (9) Hypoglycemia: resolved (10) Morbid obesity: BMI 42 (11) EBONI (obstructive sleep apnea): BIPAP at HS - patient wishes to have the bipap for comfort but be able to take it on and off as she does not tolerate it well (12) COPD (chronic obstructive pulmonary disease): not in exacerbation at this time. defer on steroids. (13) Cirrhosis: right-sided CHF vs ARSHAD (14) Chronic kidney disease, stage IV (severe): creatinine at baseline (15) Unfavorable prognosis: Patient requesting return to [facility] on hospice. Will transfer tomorrow as discussed above (16) DVT prophylaxis: lovenox daily 40mg Subjective Patient is visibly unwell today, labored breathing, reports feeling terrible which is very different yesterday when she declared "I'm fine". She is worried although she is not more specific. Review of Systems All systems reviewed & are unremarkable except as noted in HPI & below Physical Exam 2 Vital Signs (Past 24 Hours): Last Vital Signs Temp 36.8 C 06/27/18 07:49 Pulse 65 06/27/18 07:49 Resp 20 06/27/18 07:49 BP 151/68 H 06/27/18 07:49 Pulse Ox 96 06/27/18 07:49 Physical Exam: General: uncomfortable appearing Eyes: normal inspection, PERLL Respiratory: chest non tender, clear to auscultation, normal breath sounds, no respiratory distress, no accessory muscle use Cardiac: regular rate and rhythm, no rub or gallop, no murmur, pitting edema lower extremities GI/: active bowel sounds, no abd pain or tenderness, soft, non distended Extremities: normal range of motion, generalized weakness Neuro/Psych: alert and oriented x 3, anxious Skin: normal color, dry Results & Data Laboratory Results Abnormal lab results 06/26/18 06/26/18 06/27/18 Range/Units 16:08 21:29 11:30 POC Glucose 182 H 181 H 105 H (70-99) _ (1) Squamous cell lung cancer Laterality: right Qualified Code(s): C34.91 - Malignant neoplasm of unspecified part of right bronchus or lung (2) Hypertension Hypertension type: essential hypertension Qualified Code(s): I10 - Essential (primary) hypertension (3) Hypothyroidism Hypothyroidism type: acquired Qualified Code(s): E03.9 - Hypothyroidism, unspecified (4) Diabetes mellitus Diabetes mellitus type: type 2 Diabetes mellitus penitentiary insulin use: with penitentiary use Diabetes mellitus complication status: with kidney complications Diabetes mellitus complication detail: with chronic kidney disease Diabetic retinopathy severity: Proliferative retinopathy type: Diabetes mellitus macular edema: Laterality: Chronic kidney disease stage: stage 3 (moderate) Qualified Code(s): E11.22 - Type 2 diabetes mellitus with diabetic chronic kidney disease; N18.3 - Chronic kidney disease, stage 3 (moderate); Z79.4 - intermediate (current) use of insulin (5) COPD (chronic obstructive pulmonary disease) COPD type: COPD with acute exacerbation Chronic bronchitis type: Emphysema type: Qualified Code(s): J44.1 - Chronic obstructive pulmonary disease with ( acute) exacerbation (6) Cirrhosis Hepatic cirrhosis type: other cirrhosis Ascites presence: Qualified Code(s) : K74.69 - Other cirrhosis of liver
--- NOTE | 2018-06-27 11:38 | Palliative Care Progress Note ---
Date of Service June 27, 2018 Assessment & Plan (1) Goals of care, counseling/discussion: -Decision was made yesterday to transition to comfort measures. -Patient more SOB today, will add Roxanol 5mg PO/SL Q2h PRN pain or SOB/air hunger. -Will also add lorzepam 0.5mg SL Q4h PRN anxiety. -Discharge may be held back a day to get patient's symptoms under better control. -Consider discontinuing unnecessary medications at this time. (2) Acute on chronic respiratory failure with hypoxia and hypercapnia: (3) Metabolic encephalopathy: -2/2 CO2 retention. -Improved/resolved. (4) Acute on chronic diastolic (congestive) heart failure: (5) Squamous cell lung cancer: -No treatment planned at this time. 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 -Has a thoracic compression fracture as well - uncertain if she has mets to this region. Patient and family are aware of this and there was no planned intervention. (6) Pulmonary hypertension: Subjective Patient more SOB today. States she just doesn't feel well. No pain. Constitutional: + weakness Respiratory: + dyspnea and + dyspnea on exertion Cardiovascular: no chest pain and no edema Gastrointestinal: no abdominal pain, no nausea and no vomiting Musculoskeletal: + muscle weakness Integumentary: no problem reported Neurologic: no confusion Psychiatric: + anxiety Physical Exam 2 Vital Signs (Past 24 Hours): Last Vital Signs Temp 36.8 C 06/27/18 07:49 Pulse 65 06/27/18 07:49 Resp 20 06/27/18 07:49 BP 151/68 H 06/27/18 07:49 Pulse Ox 96 06/27/18 07:49 Constitutional: + ill appearing (chronically ill-appearing), + obese and comfortable ENMT: Ears: no hearing impairment Neck: normal visual inspection and trachea midline Respiratory: + labored breathing and + tachypneic Auscultation: + diminished lung sounds Cardiovascular: RRR, no murmur, no edema Vessels: dorsalis pedis pulses present; no JVD Gastrointestinal (Abdomen): Inspection/Auscultation: normal bowel sounds; abdomen not distended (obese abdomen) Percussion/Palpation: abdomen soft; abdomen nontender Skin: no rashes, warm and dry Neurologic: awake; not confused Psychiatric: Orientation: alert and oriented x 3 Time Spent Midlevel 25 minutes with >50% of time spent at bedside with patient discussing symptom management and plan of care. _ (1) Squamous cell lung cancer Laterality: right Qualified Code(s): C34.91 - Malignant neoplasm of unspecified part of right bronchus or lung
[2018-06-27] MEDS ORDERED: LORazepam 1 MG TAB SL PRN (11:43)
--- NOTE | 2018-06-27 14:47 | Death Summary ---
Date of Service June 27, 2018 time of 1425 cause of is pulmonary hypertenison, likely secondary to copd Pronouncement Note Contributing Factors (1) Acute on chronic respiratory failure with hypoxia and hypercapnia: (2) Metabolic encephalopathy: (3) Acute on chronic diastolic (congestive) heart failure: (4) Squamous cell lung cancer: (5) Pulmonary hypertension: (6) Hypertension: (7) Hypothyroidism: (8) Diabetes mellitus: (9) Hypoglycemia: (10) Morbid obesity: (11) EBONI (obstructive sleep apnea): (12) COPD (chronic obstructive pulmonary disease): (13) Cirrhosis: (14) Chronic kidney disease, stage IV (severe): (15) Unfavorable prognosis: (16) DVT prophylaxis: (17) Goals of care, counseling/discussion: Additional Data Attending physician: Ascencino Garcia MD
--- NOTE | 2018-06-27 14:51 | Discharge Summary ---
Date of Service June 27, 2018 Admission HPI Per Admitting Provider 88yo female with severe pulm HTN, chronic hypoxic/hypercarbic resp failure on 24 /7 O2 and BIPAP at , chronic diastolic CHF, and squamous cell lung cancer who presents from [facility] with hypoxia. The patient was just discharged from [facility] on 06/15/18 after a 2 week hospital stay for acute/chronic diastolic CHF and management of her pulmonary HTN, lung ca, etc. Palliative care was consulted during that admission in light of her poor prognosis but the patient wanted to attempt rehab. She did confirm at that time she was a DNR. [facility] her O2 sats were reportedly in the 70s and she was complaining of dyspnea. About 1 week ago she was seen by speech therapy and her diet texture was changed to ground consistency. She has had poor appetite per her son. Has been noncompliant with BIPAP. PT/ OT have been quite limited at [facility] (getting OOB to chair at most). Son states her mother has been quite sleepy at [facility] since arriving there after her last hospital stay. Several times her son could not wake her up on various visits [facility]. EMS records show that upon arrival to [facility] today she was in respiratory distress with O2 sats in the 70s. Records from [facility] show she was seen by the pulmonary office after hospital discharge. No medication changes were made at that time. The documentation mentions she was going to be seen again in 2 weeks and discussion was going to be held about whether to continue the sildenafil or not. Principal Diagnosis acute on chronic respiratory failure, pulmonary hypertension Discharge Data Allergies Allergy/AdvReac Type Severity Reaction Status Date / Time aspirin AdvReac Mild UPSET Verified 05/29/18 00:50 STOMACH Consultations 06/25/18 13:20 ED Decision to Admit Stat 06/25/18 15:52 Consult Case Management - Discharge Planning Routine Consult Palliative Care Routine Consult Pulmonology Routine Ordered Studies 06/25/18 20:13 CT chest wo con Routine Hospital Course (1) Acute on chronic respiratory failure with hypoxia and hypercapnia: Patient at 1425 06/27. Cause of is pulmonary hypertension Previous to patient's , the following care was undertaken: Patient had similar presentation in late May. During that admission had acute/chronic diastolic CHF, severe pulmonary HTN was found, and progression of her cancer was also seen. She had 15+ liter diuresis during that admission. Admitted for decompensated respiratory failure with significant CO2 retention. -Per her discussion with palliative care, she wanted to move to hospice care and stop infusions/abx. -Continued BIPAP as she could tolerate. - continued diuresing with 40 mg po furosmide bid for decompensated CHF and cor pulmonale - flu negative Pulmonology and palliative care consulted - discharge was pushed back from today as patient was markedly more uncomfortable/distressed today than yesterday. I discussed her care with palliative and Roxanol was prescribed for air hunger/pain (2) Metabolic encephalopathy: resolved (3) Acute on chronic diastolic (congestive) heart failure: Lasix 40mg po bid, Serna for accurate Is&Os as patient was incontinent (4) Squamous cell lung cancer: no treatment was planned previously saw Dr. Brown for this. had metastatic disease to the pericardium. had a thoracic compression fracture as well - uncertain if she had mets to this region. (5) Pulmonary hypertension: severe. during the previous stay Dr. Villar from pulmonary recommended silanafil TID. the family has inquired if this medication is necessary (patient has a grand- daughter in law in [place] who is a fisher eel spear and has questioned if this medication is necessary). pulmonology consulted Pulmonary HTN likely is on the basis of long-standing untreated sleep- disordered breathing/EBONI and COPD. (6) Hypertension: BPs labile during this stay and the previous stay. Continued BB and CCB. (7) Hypothyroidism: Continued synthroid. Most recent TSH wnl. (8) Diabetes mellitus: continued bsgs ac & hs, ss (9) Hypoglycemia: resolved (10) Morbid obesity: BMI 42 (11) EBONI (obstructive sleep apnea): BIPAP at HS - patient wished to have the bipap for comfort but be able to take it on and off as she does not tolerate it well (12) COPD (chronic obstructive pulmonary disease): not in exacerbation at this time. defer on steroids. (13) Cirrhosis: right-sided CHF vs ARSHAD (14) Chronic kidney disease, stage IV (severe): creatinine at baseline (15) Unfavorable prognosis: (16) DVT prophylaxis: lovenox daily 40mg Total Time Total Time Spent Total Time Spent (In Minutes): greater than 30 minutes Total Time Includes: Examination of the Patient and Discharge Planning Discharge Plan Discharge Items Disposition: Reason For Visit: ACUTE/CHRONIC HYPERCARBIC/HYPOXIC RESPIRATORY FAIL Admission Data Admit Date/Time: 06/25/18 14:11 Attending Provider: Ascencion Garcia Admit Provider: Bear Parr Primary Care Provider: Britney Ayala Other Providers: Bear Parr ; Ann Marie Calix ; Radha Villar Service: Oncology
[2018-06-27] MEDS ORDERED: LEVOFLOXACIN/D5W 750 MG/150 ML BAG IV SCH (15:00)
[2018-06-28] MEDS ORDERED: VANCOMYCIN TROUGH ONE (09:30)
== END 2018-06-27 15:56 | disposition expired | DRG 189 ==
LOC: ED 10:16 → 2S 14:11 → SUATTDRO 14:11 → 2S 15:24 → 4E 06-26 18:43